=== PATIENT | male | born 1950 | race African-American/Black ===

== ENCOUNTER 2016-07-03 15:10 | Emergency (ER) | payer OTHER ==
[2016-07-03 15:16] VITALS: BP 114/51; PULSE 72; TEMP 98.5; BMI 25.1
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
[2016-07-03] MEDS ORDERED: ACETAMINOPHEN 325 MG TABLET (FP) ONE (16:30)
[2016-07-03] MEDS ORDERED: ACETAMINOPHEN 325 MG TABLET (FP) PO ONE (16:36)
[2016-07-03 16:41] LABS: BASOPHIL 2.6 % (0-2.0); EOSINOPHIL 0.2 % (0-4.5); MCH 29.3 pg (25.7-33.7); MCHC 33.2 g/dl (32.0-35.9); MEAN CELL VOLUME 88.2 fl (80-96); MEAN PLT VOLUME 10.2 fl (7.5-11.1); NEUTROPHILS 48.4 % (42.8-82.8); PLATELET COUNT 199 K/MM3 (134-434); RDW 13.4 % (11.9-15.9); WHITE BLOOD COUNT 7.2 K/mm3 (4.0-10.0)
[2016-07-03 16:53] LABS: ALBUMIN 3.5 g/dl (3.5-5.0); BILIRUBIN,TOTAL 0.5 mg/dl (0.2-1.0); CPK(DFH) 276 IU/L (38-174); CREATININE 1.6 mg/dl (0.6-1.3); TOT PROT 6.9 g/dl (6.4-8.3)
[2016-07-03 17:48] LABS: TROPONIN I (DFP) < 0.03 ng/ml (0.03-0.50)
[2016-07-03 17:50] LABS: CK MB 3.3 ng/ml (0.3-4.0)
--- NOTE | 2016-07-04 21:06 | EKG ---
Test Reason : Blood Pressure : / mmHG Vent. Rate : 064 BPM Atrial Rate : 064 BPM P-R Int : 156 ms QRS Dur : 080 ms QT Int : 400 ms P-R-T Axes : 050 -01 030 degrees QTc Int : 412 ms NORMAL SINUS RHYTHM T WAVE ABNORMALITY, CONSIDER LATERAL ISCHEMIA ABNORMAL ECG WHEN COMPARED WITH ECG OF 18-OCT-2015 20:21, T WAVE INVERSION NO LONGER EVIDENT IN INFERIOR LEADS Confirmed by ROBYN BLAND, LANDY ([id number]) on 07/04/2016 9:06:00 PM Referred By: MD TERAN Confirmed By:LANDY CARLSON MD
== END 2016-07-03 18:29 | disposition home or self-care (01) ==
LOC: FER 15:10
DX: M79.1 Myalgia (principal); V43.52XA Car driver injured in collision with other type car in traffic accident, initial encounter; Y93.89 Activity, other specified; Y92.410 Unspecified street and highway as the place of occurrence of the external cause; I10 Essential (primary) hypertension; E11.9 Type 2 diabetes mellitus without complications
CPT/HCPCS: 36415; 70450-TC; 71020-TC; 72125-TC; 80053; 82550; 82553; 83690; 84484; 85025; 93005; 99283-25

== ENCOUNTER 2016-08-07 07:30 | Day surgery (SDC) | payer OTHER ==
[2016-08-06 12:40] VITALS: BMI 24.4
[2016-08-07] MEDS ORDERED: PROPOFOL 20 ML ONE ×2 (09:00)
[2016-08-07] MEDS ORDERED: ePHEDrine SULFATE 50 MG/1 ML AMPULE ONE (09:25)
[2016-08-07] MEDS ORDERED: GLYCOPYRROLATE 0.2 MG/1 ML VIAL ONE ×2 (09:25→09:27)
[2016-08-07] MEDS ORDERED: BUPIVACAINE HCL/PF 0.25% (2.5MG/ML) 10 ML VIAL IJ ONE (09:45)
[2016-08-07] MEDS ORDERED: ONDANSETRON 4 MG/2 ML VIAL IVPUSH PRN (10:02)
[2016-08-07] MEDS ORDERED: oxyCODONE HCL 5 MG TABLET PO PRN ×2 (10:02→10:03)
[2016-08-07 10:54] VITALS: TEMP 97.5
[2016-08-07] MEDS ORDERED: oxyCODONE HCL 5 MG TABLET ONE (11:51)
[2016-08-07 12:43] VITALS: BP 145/79; PULSE 66
--- NOTE | 2016-08-10 12:10 | OP ---
DATE OF OPERATION: 08/07/2016 SURGEON: Crystal Guallpa MD MOTOR COACH BUS DRIVER: VIOLET Maguire PREOPERATIVE DIAGNOSES: 1. Right knee medial and lateral meniscal tear. 2. Right knee cartilage tear. 3. Right knee synovitis. POSTOPERATIVE DIAGNOSES: 1. Right knee medial and lateral meniscal tear. 2. Right knee cartilage tear. 3. Right knee synovitis. PROCEDURE: 1. Right knee arthroscopy with partial meniscectomy medial and lateral meniscus. 2. Right knee arthroscopy with chondroplasty and abrasion-plasty. 2. Right knee arthroscopy with synovectomy major. CPT CODE: 35553, 67452, 2976 FINDINGS: 1. Medial meniscus body and posterior horn tear. 2. Lateral meniscus posterior horn tear. 3. Synovitis patellofemoral medial and lateral notch. 4. Anterior grade 1-2 cartilage injury medial joint line. 5. ACL and PCL intact. 6. Anterior grade 2 cartilage medial and lateral tibial plateau. 7. Anterior grade 1-2 cartilage patella with grade 4 changes anterolateral portion of patellofemoral trochlea site of synovial adhesion. PROCEDURE: Informed consent was obtained. The patient was taken to the operating room where the right lower extremity was prepped and draped in a sterile fashion. A tourniquet was placed on the right upper thigh but not inflated. Using standard arthroscopic technique, a lateral incision and portal were made which allowed for introduction of the camera into the suprapatellar bursa. This was then taken to the medial joint line where under direct visualization, a medial incision and portal were made. Excessive synovium noted in the medial, lateral, patellofemoral and notch area was removed by the up-biting shaver and Bovie cautery. This was found to bring inflammatory tissue into the joint surface, a source of joint pain and dysfunction. Probing of the medial and lateral meniscus found tears described in the findings. These were removed with an up-biting shaver and taken back to a stable rim. Grade 2-3 degenerative changes were treated with chondroplasty, removing all flaking surfaces with low setting Bovie used along the periphery. Grade 4 changes were treated with abrasion-plasty. All areas of the knee were once again re-examined. The knee was then drained. A single suture was placed on all portals. Sterile dressing was placed. The patient was transferred to the recovery room. CRYSTAL GUALLPA M.D. [id number]
--- NOTE | 2016-08-11 16:18 | PATH ---
Surgical Pathology Report Patient Name: LEANN HIGGINS [facility]. Rec. #: [id number] /Age/Gender: 1950 (Age: 66) / M Account: [id number] Location: [facility] AMBULATORY Taken: 08/07/2016 Received: 08/07/2016 Reported: 08/11/2016 Physicians: Silvino Carbajal M.D. Specimen(s) Received RIGHT KNEE SHAVINGS Clinical History Right knee meniscus tear Final Diagnosis KNEE, RIGHT, ARTHROSCOPIC SHAVINGS: FIBROCOLLAGENOUS TISSUE AND SCANT CARTILAGE. Electronically Signed Irene Ayon M.D. Gross Description Received in formalin, labeled "right knee arthroscopy shavings," is a 4.5 x 3.5 x 0.4 cm. aggregate of guajardo-yellow soft tissue fragments. A self pay representative portion is submitted in one cassette. /08/07/201608/07/2016
== END 2016-08-07 12:40 | disposition home or self-care (01) ==
LOC: FASU 07:30
PROVIDERS: ATTEND Orthopaedic Surgery
PROC: 0SBC4ZZ Excision of Right Knee Joint, Percutaneous Endoscopic Approach (ICD-10-PCS; 2016-08-07)
PROC: 0SBC4ZZ Excision of Right Knee Joint, Percutaneous Endoscopic Approach (ICD-10-PCS; 2016-08-07)
PROC: 0SBC4ZZ Excision of Right Knee Joint, Percutaneous Endoscopic Approach (ICD-10-PCS; principal; 2016-08-07 09:19)
DX: S83.241A Other tear of medial meniscus, current injury, right knee, initial encounter (principal); S83.281A Other tear of lateral meniscus, current injury, right knee, initial encounter; S83.8X1A Sprain of other specified parts of right knee, initial encounter; M65.861 Other synovitis and tenosynovitis, right lower leg; X58.XXXA Exposure to other specified factors, initial encounter; Y93.9 Activity, unspecified; Y92.9 Unspecified place or not applicable
CPT/HCPCS: 88304-TC; 94760

== ENCOUNTER 2016-10-10 22:44 | Emergency (ER) | payer OTHER ==
[2016-10-10 22:48] VITALS: BP 137/72; PULSE 69; TEMP 97.7; BMI 24.4
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
[2016-10-10] MEDS ORDERED: IBUPROFEN 400 MG TABLET (FP) PO ONE ×2 (23:21→23:23)
[2016-10-11] MEDS ORDERED: LEVOFLOXACIN 750 MG IVPB 150 ML IVPB ONE (00:14)
[2016-10-11] MEDS ORDERED: METRONIDAZOLE 500 MG PREMIXED 100 ML IVPB ONE (00:14)
[2016-10-11] MEDS ORDERED: SODIUM CHLORIDE 1,000 ML IV SCH (00:15)
== END 2016-10-10 23:28 | disposition home or self-care (01) ==
LOC: FER 22:44
DX: M25.561 Pain in right knee (principal); G89.29 Other chronic pain; E11.9 Type 2 diabetes mellitus without complications; I10 Essential (primary) hypertension; E78.00 Pure hypercholesterolemia, unspecified; Z79.4 Long term (current) use of insulin
CPT/HCPCS: 73560-TC-RT; 99281-25

== ENCOUNTER 2017-05-16 16:49 | Observation (INO) | payer OTHER ==
[2017-05-16] MEDS ORDERED: HEMOQUE TEST 1 EACH EACH ONE (17:04)
--- NOTE | 2017-05-16 17:22 | PDOC ---
History of Present Illness - General History Source: Patient Exam Limitations: No Limitations - History of Present Illness Initial Comments: 05/16/17 17:28 The patient is a 67 year old male, with a significant past medical history of HTN, HLD, glaucoma (legally blind), and DM, who presents to the emergency department with hyperglycemia today. The patient reports having an unresponsive episode today. The patients family reports the patient slurring his words, being unable to finish sentences, and extremity weakness while in the bathroom. Family reports during the episode measuring his sugar levels, recording it at 280-290. The patient reports having a history of syncopal episode secondary to high glucose level. He denies any recent fevers, chills, headache or dizziness. He denies any recent nausea, vomit, or constipation. He denies any recent chest pain or shortness of breath. He denies any recent dysuria, frequency, urgency or hematuria. Allergies: NKA Past surgical history: See Nursing Notes Social History: Nonsmoker. Denies EtOH use and recreational drug use. <Earnest Salgado - Last Filed: 05/16/17 17:28> <Khadijah Coppola - Last Filed: 05/16/17 21:06> - General Chief Complaint: Blood Sugar Problem Stated Complaint: HYPERGLYCEMIA Time Seen by Provider: 05/16/17 16:58 Past History <Earnest Salgado - Last Filed: 05/16/17 17:28> - Past Medical History Anemia: No Asthma: No Cancer: No Cardiac Disorders: Yes (SYNCOPAL EPISODES IN 2016) CVA: No COPD: No CHF: No Dementia: No Diabetes: Yes (NIDDM) GI Disorders: No Disorders: No HTN: Yes Hypercholesterolemia: Yes Liver Disease: No Seizures: No Thyroid Disease: No - Surgical History Abdominal Surgery: No Appendectomy: No Cardiac Surgery: No Cholecystectomy: No Lung Surgery: No Neurologic Surgery: No Orthopedic Surgery: No - Immunization History Td Vaccination: Yes Immunization Up to Date: Yes - Suicide/Smoking/Psychosocial Hx Smoking Status: No Smoking History: Never smoked Have you smoked in the past 12 months: No Number of Cigarettes Smoked Daily: 0 Hx Alcohol Use: No Drug/Substance Use Hx: No Substance Use Type: None Hx Substance Use Treatment: No <Khadijah Coppola - Last Filed: 05/16/17 21:06> - Past Medical History Allergies/Adverse Reactions: Allergies Allergy/AdvReac Type Severity Reaction Status Date / Time No Known Allergies Allergy Verified 05/16/17 16:51 Home Medications: Ambulatory Orders Insulin (LOG) Aspart [NovoLOG -] 5 unit SQ AC 02/20/12 Insulin Glargine,Hum.rec.anlog [Lantus (10mL VIAL) -] 25 units SQ HS 02/20/12 Carvedilol 12.5 mg PO DAILY 12/02/14 Simvastatin [Zocor -] 20 mg PO HS 10/18/15 Acetaminophen [Tylenol] 650 mg PO Q4H PRN #100 tablet 07/03/16 Aspirin [ASA -] 81 mg PO DAILY 05/16/17 Brimonidine Tartrate/Timolol [Combigan Eye Drops] 5 ml OP DAILY 05/16/17 Prednisolone 0.12% Ophthalmic [Pred Mild 0.12% -] 1 drop OP BID 05/16/17 Review of Systems - Review of Systems Able to Perform ROS?: Yes Comments:: 05/16/17 17:28 GENERAL/CONSTITUTIONAL: No fever or chills. + weakness. HEAD, EYES, EARS, NOSE AND THROAT: No change in vision. No ear pain or discharge. No sore throat. CARDIOVASCULAR: No chest pain or shortness of breath. RESPIRATORY: No cough, wheezing, or hemoptysis. GASTROINTESTINAL: No nausea, vomiting, diarrhea or constipation. GENITOURINARY: No dysuria, frequency, or change in urination. MUSCULOSKELETAL: No joint or muscle swelling or pain. No neck or back pain. SKIN: No rash NEUROLOGIC: No headache, vertigo, loss of consciousness, or change in strength/ sensation. ENDOCRINE: No increased thirst. No abnormal weight change. HEMATOLOGIC/LYMPHATIC: No anemia, easy bleeding, or history of blood clots. ALLERGIC/IMMUNOLOGIC: No hives or skin allergy. <Earnest Salgado - Last Filed: 05/16/17 17:28> *Physical Exam - Vital Signs Last Vital Signs Temp Pulse Resp BP Pulse Ox 97.2 F L 49 L 20 136/67 99 05/16/17 16:49 05/16/17 16:49 05/16/17 16:49 05/16/17 16:49 05/16/17 16:49 <Earnest Salgado - Last Filed: 05/16/17 17:28> - Physical Exam Comments: GENERAL: Awake, alert, and fully oriented, in no acute distress HEAD: No signs of trauma EYES: +Clouding of corneas B/L (history of B/L blindness). Conjunctiva clear ENT: Auricles normal inspection, hearing grossly normal, nares patent, oropharynx clear without exudates. Moist mucosa NECK: Normal ROM, supple, no lymphadenopathy, JVD, or masses LUNGS: Breath sounds equal, clear to auscultation bilaterally. No wheezes, and no crackles HEART: Regular rate and rhythm, normal S1 and S2, no murmurs, rubs or gallops ABDOMEN: Soft, nontender, normoactive bowel sounds. No guarding, no rebound. No masses EXTREMITIES: Normal range of motion, no edema. No clubbing or cyanosis. No cords, erythema, or tenderness NEUROLOGICAL: Cranial nerves II through XII grossly intact. Normal speech, normal gait SKIN: Warm, Dry, normal turgor, no rashes or lesions noted. No skin lesions to the feet. Feet noted to have extremely dry skin B/L. <Khadijah Coppola - Last Filed: 05/16/17 21:06> ED Treatment Course - ADDITIONAL ORDERS Additional order review: Laboratory Results 05/16/17 17:07 POC Glucometer [id number] 05/16/17 17:07 POC Glucometer 202.03053 <Earnest Salgado - Last Filed: 05/16/17 17:28> - LABORATORY CBC & Chemistry Diagram: 05/16/17 17:37 05/16/17 17:37 <Khadijah Coppola - Last Filed: 05/16/17 21:06> Medical Decision Making - Medical Decision Making Pt presented with syncopal event, witnessed by family at home. They initially attributed it to high blood sugar, as he became more alert when they gave him insulin. However, this explanation does not quite make sense- would not expect AMS for BGM 280s. He has bradycardia on exam, and EKG shows inferior lead T wave changes from prior. CE negative. Will admit to hospitalist service on tele for syncope, r/o ACS, r/o arrhythmia. <Khadijah Coppola - Last Filed: 05/16/17 21:06> *DC/Admit/Observation/Transfer - Attestations Scribe Attestion: 05/16/17 17:28 Documentation prepared by Earnest Salgado, acting as rn medical inpatient services for Khadijah Coppola MD. <Earnest Salgado - Last Filed: 05/16/17 17:28> <Khadijah Coppola - Last Filed: 05/16/17 21:06> Diagnosis at time of Disposition: Syncope Qualifiers: Syncope type: unspecified Qualified Code(s): R55 - Syncope and collapse
[2017-05-16] MEDS ORDERED: SODIUM CHLORIDE 1,000 ML IV STA (17:24)
[2017-05-16 17:38] VITALS: BMI 21.6
[2017-05-16 18:32] LABS: BASO % 0.5 % (0-2.0); EOS % 0.6 % (0-4.5); HEMATOCRIT 43.5 % (35.4-49); HEMOGLOBIN 14.2 GM/dl (11.7-16.9); LYMPH % 44.1 % (8-40); MCH 29.5 pg (25.7-33.7); MCHC 32.6 g/dl (32.0-35.9); MEAN CELL VOLUME 90.6 fl (80-96); MEAN PLT VOLUME 10.3 fl (7.5-11.1); MONO % 10.4 % (3.8-10.2); NEUT % 44.4 % (42.8-82.8); PLATELET COUNT 183 K/MM3 (134-434); RBC 4.81 M/mm3 (4.00-5.60)
[2017-05-16 18:38] LABS: ALBUMIN 3.8 g/dl (3.5-5.0); ALK PHOS 72 U/L (32-92); ANION GAP 8 (8-16); BILIRUBIN,TOTAL 0.8 mg/dl (0.2-1.0); BLOOD UREA NITROGEN 24 mg/dl (7-18); CALCIUM 9.5 mg/dl (8.4-10.2); CHLORIDE 107 mmol/L (98-107); CO2 22 mmol/L (22-28); CREATININE 1.5 mg/dl (0.6-1.3); GLUCOSE,RANDOM 185 mg/dl (74-106); SGOT/AST 26 U/L (10-42); SGPT/ALT 20 U/L (10-40); SODIUM 137 mmol/L (136-145); TOT PROT 7.5 g/dl (6.4-8.3)
[2017-05-16 19:02] LABS: TROPONIN I (DFP) < 0.03 ng/ml (0.03-0.50)
[2017-05-16 20:57] LABS: PH,URINE 6.5 (4.5-8); URINE APPEARANCE Clear; URINE BILIRUBIN Negative (NEGATIVE); URINE BLOOD Negative (NEGATIVE); URINE GLUCOSE (UA) Negative (NEGATIVE); URINE KETONE Negative (NEGATIVE); URINE NITRITE Negative (NEGATIVE); URINE PROTEIN Negative (NEGATIVE); URINE UROBILINOGEN 0.2 (0.2-1.0)
[2017-05-16 20:58] LABS: URINE COLOR YELLOW
[2017-05-16] MEDS ORDERED: ATORVASTATIN CA 10 MG TABLET (FP) PO SCH (22:00)
--- NOTE | 2017-05-16 22:14 | HP ---
CHIEF COMPLAINT: Syncope, Hyperglycemia PCP: Dr. Olguin HISTORY OF PRESENT ILLNESS: This is a 67 y/o man with a past medical history of IDDM, HTN, HLD, Legally Blind. BIBA from home for a syncopal episode with hyperglycemia x today. Patient reports that he checked his blood glucose at home and it was 83, so he drank some Coca cola. He reports then while having a BM he became lightheaded and dizzy. He reports his daughter checked his blood sugar and it was 199, he was given insulin and later felt much better. The patient reports that his blood sugars are usually more controlled. The patient denies fever, cough, SOB, CP, palpitations, N/V/D, constipation. ER course was notable for: (1) Head CT- negative ICH, edema, midline shift, mass effect, - skull fracture (2) Chest xray image- No infiltrate or effusion- pending report (3) Serum glucose-185 Recent Travel: None PAST MEDICAL HISTORY: See HPI PAST SURGICAL HISTORY: Social History: Smoking: Never Alcohol: None Drugs: None Lives with and children Family History: Allergies No Known Allergies Allergy (Verified 05/16/17 16:51) HOME MEDICATIONS: Home Medications Medication Instructions Recorded Insulin (LOG) Aspart [NovoLOG -] 5 unit SQ AC 02/20/12 Insulin Glargine,Hum.rec.anlog 25 units SQ HS 02/20/12 [Lantus (10mL VIAL) -] Carvedilol 12.5 mg PO DAILY 12/02/14 Simvastatin [Zocor -] 20 mg PO HS 10/18/15 Acetaminophen [Tylenol] 650 mg PO Q4H PRN #100 tablet 07/03/16 Aspirin [ASA -] 81 mg PO DAILY 05/16/17 Brimonidine Tartrate/Timolol 5 ml OP DAILY 05/16/17 [Combigan Eye Drops] Prednisolone 0.12% Ophthalmic 1 drop OP BID 05/16/17 [Pred Mild 0.12% -] REVIEW OF SYSTEMS CONSTITUTIONAL: diaphoresis Absent: fever, chills, generalized weakness, malaise, loss of appetite, weight change HEENT: Absent: rhinorrhea, nasal congestion, throat pain, throat swelling, difficulty swallowing, mouth swelling, ear pain, eye pain, visual changes CARDIOVASCULAR: syncope, lightheadedness, Absent: chest pain, palpitations, irregular heart rate, peripheral edema RESPIRATORY: Absent: cough, shortness of breath, dyspnea with exertion, orthopnea, wheezing, stridor, hemoptysis GASTROINTESTINAL: Absent: abdominal pain, abdominal distension, nausea, vomiting, diarrhea, constipation, melena, hematochezia GENITOURINARY: Absent: dysuria, frequency, urgency, hesitancy, hematuria, flank pain, genital pain MUSCULOSKELETAL: Absent: myalgia, arthralgia, joint swelling, back pain, neck pain SKIN: Absent: rash, itching, pallor HEMATOLOGIC/IMMUNOLOGIC: Absent: easy bleeding, easy bruising, lymphadenopathy, frequent infections ENDOCRINE: Absent: unexplained weight gain, unexplained weight loss, heat intolerance, cold intolerance NEUROLOGIC: dizziness Absent: headache, focal weakness or paresthesias, unsteady gait, seizure, mental status changes, bladder or bowel incontinence PSYCHIATRIC: Absent: anxiety, depression, suicidal or homicidal ideation, hallucinations. PHYSICAL EXAMINATION Vital Signs - 24 hr 05/16/17 05/16/17 05/16/17 16:49 19:34 20:17 Temperature 97.2 F L 98.1 F Pulse Rate 49 L 61 Pulse Rate [ 61 Right] Respiratory 20 16 18 Rate Blood Pressure 136/67 138/73 Blood Pressure 135/72 [Left] O2 Sat by Pulse 99 100 99 Oximetry (%) 05/16/17 21:07 Temperature 98.1 F Pulse Rate 61 Pulse Rate [ Right] Respiratory 18 Rate Blood Pressure 138/73 Blood Pressure [Left] O2 Sat by Pulse 99 Oximetry (%) GENERAL: Awake, alert, and fully oriented, in no acute distress. HEAD: Normal with no signs of trauma. EYES: Cloudy Corneas, blindness to L- eye, conjunctiva clear EARS, NOSE, THROAT: Dry mucous membranes. Ears normal, nares patent, oropharynx clear without exudates. NECK: Normal range of motion, supple without lymphadenopathy, JVD, or masses. LUNGS: Breath sounds equal, clear to auscultation bilaterally. No wheezes, and no crackles. No accessory muscle use. HEART: Regular rate and rhythm, normal S1 and S2 without murmur, rub or gallop. ABDOMEN: Soft, nontender, not distended, normoactive bowel sounds, no guarding, no rebound, no masses. No hepatomegaly or splenomegaly. MUSCULOSKELETAL: Normal range of motion at all joints. No bony deformities or tenderness. No CVA tenderness. UPPER EXTREMITIES: 2+ pulses, warm, well-perfused. No cyanosis. No clubbing. No peripheral edema. LOWER EXTREMITIES: 2+ pulses, warm, well-perfused. No calf tenderness. No peripheral edema. NEUROLOGICAL: Cranial nerves III-XII intact. Normal speech. Gait not observed. PSYCHIATRIC: Cooperative. Good eye contact. Appropriate mood and affect. SKIN: Warm, dry, normal turgor, no rashes or lesions noted, normal capillary refill. Laboratory Results - last 24 hr 05/16/17 05/16/17 05/16/17 17:07 17:37 17:37 WBC 4.0 D RBC 4.81 Hgb 14.2 Hct 43.5 MCV 90.6 MCH 29.5 MCHC 32.6 RDW 13.0 Plt Count 183 MPV 10.3 Neutrophils % 44.4 Lymphocytes % 44.1 H Monocytes % 10.4 H Eosinophils % 0.6 D Basophils % 0.5 Sodium 137 Potassium 4.0 Chloride 107 Carbon Dioxide 22 Anion Gap 8 BUN 24 H D Creatinine 1.5 H Creat Clearance w eGFR 46.54 POC Glucometer 202.95344 Random Glucose 185 H Calcium 9.5 Total Bilirubin 0.8 D AST 26 ALT 20 Alkaline Phosphatase 72 Creatine Kinase 233 Creatine Kinase Index 1.1 CK-MB (CK-2) 2.7 Troponin I < 0.03 L Total Protein 7.5 Albumin 3.8 Urine Color Urine Appearance Urine pH Ur Specific [place] Urine Protein Urine Glucose (UA) Urine Ketones Urine Blood Urine Nitrite Urine Bilirubin Urine Urobilinogen Ur Leukocyte Esterase 05/16/17 05/16/17 20:53 21:21 WBC RBC Hgb Hct MCV MCH MCHC RDW Plt Count MPV Neutrophils % Lymphocytes % Monocytes % Eosinophils % Basophils % Sodium Potassium Chloride Carbon Dioxide Anion Gap BUN Creatinine Creat Clearance w eGFR POC Glucometer 199 Random Glucose Calcium Total Bilirubin AST ALT Alkaline Phosphatase Creatine Kinase Creatine Kinase Index CK-MB (CK-2) Troponin I Total Protein Albumin Urine Color Yellow Urine Appearance Clear Urine pH 6.5 Ur Specific [place] 1.015 Urine Protein Negative Urine Glucose (UA) Negative Urine Ketones Negative Urine Blood Negative Urine Nitrite Negative Urine Bilirubin Negative Urine Urobilinogen 0.2 Ur Leukocyte Esterase Negative ASSESSMENT/PLAN: This is a 67 y/o man with a PMHx of: IDDM, HTN, HLD, Legally Blind, Glaucoma. Placed in Observation for Syncope, Hyperglycemia. Plan: 1. Syncope- Likely secondary to Vaso Vagal vs Hyperglycemia vs Arrhythmia. Cardiac monitoring, Serial Enzymes, Carotid Doppler, Echo, Appreciate Cardiology Consult. EKG reviewed- sinus bradycardia with sinus arrhythmia, Repeat CBC, BMP, Lipid Panel in am. 2. Hyperglycemia- BGMs, ISS, HgbA1C in am 3. HTN- Monitor BP, Continue Carvedilol with parameters 4. HLD- Continue Zocor 5. Glaucoma- Continue home meds 6. F/E/N- PO Fluids, Replete lytes prn, Diabetic, Low Na Diet 7. DVT Prophyaxis- OOB, SCDs Code Status: Full Code Dispo: Observation Problem List - Problem (1) Syncope Code(s): R55 - SYNCOPE AND COLLAPSE Qualifiers: Syncope type: unspecified Qualified Code(s): R55 - Syncope and collapse (2) Hyperglycemia due to type 1 diabetes mellitus Code(s): E10.65 - TYPE 1 DIABETES MELLITUS WITH HYPERGLYCEMIA (3) HTN (hypertension) Code(s): I10 - ESSENTIAL (PRIMARY) HYPERTENSION (4) Legally blind Code(s): H54.8 - LEGAL BLINDNESS, DEFINED IN [place] (5) Glaucoma Code(s): H40.9 - UNSPECIFIED GLAUCOMA (6) DVT prophylaxis Code(s): [id number] - Visit type - Emergency Visit Emergency Visit: Yes ED Registration Date: 05/16/17 Care time: The patient presented to the Emergency Department on the above date and was hospitalized for further evaluation of their emergent condition. - New Patient This patient is new to me today: Yes Date on this admission: 05/16/17 - Critical Care Critical Care patient: No
[2017-05-16] MEDS ORDERED: SODIUM CHLORIDE 1,000 ML IV SCH (23:15)
[2017-05-17 09:12] LABS: BASO % 0.4 % (0-2.0); EOS % 0.3 % (0-4.5); HEMATOCRIT 40.4 % (35.4-49); HEMOGLOBIN 13.2 GM/dl (11.7-16.9); LYMPH % 38.6 % (8-40); MCH 28.9 pg (25.7-33.7); MCHC 32.7 g/dl (32.0-35.9); MEAN CELL VOLUME 88.4 fl (80-96); MEAN PLT VOLUME 10.8 fl (7.5-11.1); MONO % 10.9 % (3.8-10.2); NEUT % 49.8 % (42.8-82.8); PLATELET COUNT 191 K/MM3 (134-434); RBC 4.57 M/mm3 (4.00-5.60); RDW 12.8 % (11.9-15.9); WHITE BLOOD COUNT 4.6 K/mm3 (4.0-10.8)
[2017-05-17] MEDS ORDERED: PT OWN MED DRAWER 7, Y5N ONE ×2 (09:42→21:07)
[2017-05-17] MEDS: CARVEDILOL 12.5 MG TABLET (FP) PO SCH (09:47)
[2017-05-17] MEDS: ASPIRIN 81 MG CHEWABLE TABLETS PO SCH (09:47)
[2017-05-17] MEDS ORDERED: PATIENT'S OWN MEDICATION (NON-FORMULARY) (Brimonidine Tartrate/Timolol [Combigan 0.2%-0.5% OU SCH (10:00)
[2017-05-17 10:17] LABS: ANION GAP 9 (8-16); BLOOD UREA NITROGEN 22 mg/dl (7-18); CALCIUM 9.4 mg/dl (8.4-10.2); CHLORIDE 106 mmol/L (98-107); CO2 24 mmol/L (22-28); CREATININE 1.5 mg/dl (0.6-1.3); GLUCOSE,RANDOM 69 mg/dl (74-106); MAGNESIUM 1.8 mg/dL (1.8-2.4); PHOSPHOROUS 3.8 mg/dl (2.5-4.6); POTASSIUM 3.9 mmol/L (3.5-5.1); SODIUM 139 mmol/L (136-145)
--- NOTE | 2017-05-17 10:34 | PN ---
Physical Exam: SUBJECTIVE: Patient seen and examined, reports feeling well, denies any chest pain or shortness of breath. OBJECTIVE:This is a 67 y/o man with a past medical history of IDDM, HTN, HLD, Legally Blind. Patient was admitted from the emergency department for syncopal episode. Vital Signs Period Temp Pulse Resp BP Sys/Ramirez Pulse Ox Last 24 Hr 97.2 F-98.4 F 49-70 16-20 135-148/67-73 96-100 GENERAL: The patient is awake, alert, and fully oriented, in no acute distress. HEAD: Normal with no signs of trauma. EYES: left eye- opaque cornea, right eye-cataract noted. PERRL, extraocular movements intact, sclera anicteric, conjunctiva clear. No ptosis. ENT: Ears normal, nares patent, oropharynx clear without exudates, moist mucous membranes. NECK: Trachea midline, full range of motion, supple. LUNGS: Breath sounds equal, clear to auscultation bilaterally, no wheezes, no crackles, no accessory muscle use. HEART: Regular rate and rhythm, S1, S2 without murmur, rub or gallop. ABDOMEN: Soft, nontender, nondistended, normoactive bowel sounds, no guarding, no rebound, no hepatosplenomegaly, no masses. EXTREMITIES: 2+ pulses, warm, well-perfused, no edema. NEUROLOGICAL: Cranial nerves II through XII grossly intact. Normal speech, gait not observed. PSYCH: Normal mood, normal affect. SKIN: Warm, dry, normal turgor, no rashes or lesions noted Laboratory Results - last 24 hr 05/16/17 05/16/17 05/16/17 17:07 17:37 17:37 WBC 4.0 D RBC 4.81 Hgb 14.2 Hct 43.5 MCV 90.6 MCH 29.5 MCHC 32.6 RDW 13.0 Plt Count 183 MPV 10.3 Neutrophils % 44.4 Lymphocytes % 44.1 H Monocytes % 10.4 H Eosinophils % 0.6 D Basophils % 0.5 Sodium 137 Potassium 4.0 Chloride 107 Carbon Dioxide 22 Anion Gap 8 BUN 24 H D Creatinine 1.5 H Creat Clearance w eGFR 46.54 POC Glucometer 202.34095 Random Glucose 185 H Hemoglobin A1c % Calcium 9.5 Phosphorus Magnesium Total Bilirubin 0.8 D AST 26 ALT 20 Alkaline Phosphatase 72 Creatine Kinase 233 Creatine Kinase Index 1.1 CK-MB (CK-2) 2.7 Troponin I < 0.03 L Total Protein 7.5 Albumin 3.8 Urine Color Urine Appearance Urine pH Ur Specific [place] Urine Protein Urine Glucose (UA) Urine Ketones Urine Blood Urine Nitrite Urine Bilirubin Urine Urobilinogen Ur Leukocyte Esterase 05/16/17 05/16/17 05/17/17 20:53 21:21 00:01 WBC RBC Hgb Hct MCV MCH MCHC RDW Plt Count MPV Neutrophils % Lymphocytes % Monocytes % Eosinophils % Basophils % Sodium Potassium Chloride Carbon Dioxide Anion Gap BUN Creatinine Creat Clearance w eGFR POC Glucometer 199 Random Glucose Hemoglobin A1c % Calcium Phosphorus Magnesium Total Bilirubin AST ALT Alkaline Phosphatase Creatine Kinase Creatine Kinase Index CK-MB (CK-2) Troponin I < 0.02 Total Protein Albumin Urine Color Yellow Urine Appearance Clear Urine pH 6.5 Ur Specific [place] 1.015 Urine Protein Negative Urine Glucose (UA) Negative Urine Ketones Negative Urine Blood Negative Urine Nitrite Negative Urine Bilirubin Negative Urine Urobilinogen 0.2 Ur Leukocyte Esterase Negative 05/17/17 05/17/17 05/17/17 00:05 05:51 07:30 WBC 4.6 RBC 4.57 Hgb 13.2 Hct 40.4 MCV 88.4 MCH 28.9 MCHC 32.7 RDW 12.8 Plt Count 191 MPV 10.8 Neutrophils % 49.8 Lymphocytes % 38.6 Monocytes % 10.9 H Eosinophils % 0.3 Basophils % 0.4 Sodium Potassium Chloride Carbon Dioxide Anion Gap BUN Creatinine Creat Clearance w eGFR POC Glucometer 53 Random Glucose Hemoglobin A1c % Calcium Phosphorus Magnesium Total Bilirubin AST ALT Alkaline Phosphatase Creatine Kinase Creatine Kinase Index CK-MB (CK-2) Troponin I Cancelled Total Protein Albumin Urine Color Urine Appearance Urine pH Ur Specific [place] Urine Protein Urine Glucose (UA) Urine Ketones Urine Blood Urine Nitrite Urine Bilirubin Urine Urobilinogen Ur Leukocyte Esterase 05/17/17 05/17/17 05/17/17 07:30 07:30 08:00 WBC RBC Hgb Hct MCV MCH MCHC RDW Plt Count MPV Neutrophils % Lymphocytes % Monocytes % Eosinophils % Basophils % Sodium 139 Potassium 3.9 Chloride 106 Carbon Dioxide 24 Anion Gap 9 BUN 22 H Creatinine 1.5 H Creat Clearance w eGFR POC Glucometer Random Glucose 69 L D Hemoglobin A1c % 9.0 H D Calcium 9.4 Phosphorus 3.8 Magnesium 1.8 Total Bilirubin AST ALT Alkaline Phosphatase Creatine Kinase Creatine Kinase Index CK-MB (CK-2) Troponin I < 0.03 L Total Protein Albumin Urine Color Urine Appearance Urine pH Ur Specific [place] Urine Protein Urine Glucose (UA) Urine Ketones Urine Blood Urine Nitrite Urine Bilirubin Urine Urobilinogen Ur Leukocyte Esterase Laboratory Tests 05/16/17 05/17/17 05/17/17 17:37 00:01 07:30 Troponin I < 0.03 L < 0.02 < 0.03 L Active Medications Generic Name Dose Route Start Last Admin Trade Name Freq PRN Reason Stop Dose Admin Aspirin 81 mg 05/17/17 10:00 05/17/17 09:47 Asa - PO 81 mg DAILY HAIR Administration Atorvastatin Calcium 10 mg 05/16/17 22:00 Lipitor - PO HS HAIR Brimonidine Tartrate 1 drop 05/17/17 10:00 Alphagan 0.2% - OU DAILY HAIR Carvedilol 12.5 mg 05/17/17 10:00 05/17/17 09:47 Coreg - PO 12.5 mg DAILY HAIR Administration Sodium Chloride 1,000 mls @ 42 mls/hr 05/16/17 23:15 Normal Saline - IV ASDIR HAIR Prednisolone Acetate 1 drop 05/16/17 23:15 Pred Mild 0.12% - OU BID HAIR Timolol Maleate 1 drop 05/17/17 10:00 Timoptic 0.5% OU DAILY HAIR imaging head ct, no intracranial pathology is noted ekg sinus bradycardiaa noted ASSESSMENT/PLAN: 1.cardiovascular Syncopal episode - no events noted on cardiac monitoring, likely secondary to hypovolemia, continue gentle iv hydration - orthostatic vital signs now - troponin x 3 wnl - carotid doppler no hemodynamic significant stenosis noted, pending echo - pending lipid panel - appreciate cardiology consult hypertension - b/p at goal continue coreg hyperlipidemia - continue zocor 2. endo iddm - hgb ad1c noted to be elevated, continue home dose levermir, fingersticks achs with novolog coverage 3. Glaucoma - Continue home meds 6. F/E/N- PO Fluids, gentle ivf, Replete lytes prn, Diabetic, Low Na Diet 7. DVT Prophyaxis- OOB, SCDs Code Status: Full Code Dispo: Observation Visit type - Emergency Visit Emergency Visit: Yes ED Registration Date: 05/16/17 Care time: The patient presented to the Emergency Department on the above date and was hospitalized for further evaluation of their emergent condition. - New Patient This patient is new to me today: No - Critical Care Critical Care patient: No - Discharge Referral Referred to [facility] Med [facility] No
--- NOTE | 2017-05-17 10:45 | EKG ---
Test Reason : Blood Pressure : / mmHG Vent. Rate : 053 BPM Atrial Rate : 053 BPM P-R Int : 152 ms QRS Dur : 080 ms QT Int : 452 ms P-R-T Axes : 027 -06 -57 degrees QTc Int : 424 ms SINUS BRADYCARDIA WITH SINUS ARRHYTHMIA MINIMAL VOLTAGE CRITERIA FOR LVH, MAY BE NORMAL VARIANT T WAVE ABNORMALITY, CONSIDER INFEROLATERAL ISCHEMIA WHEN COMPARED WITH ECG OF 03-JUL-2016 16:24, T WAVE INVERSION NOW EVIDENT IN INFERIOR LEADS Confirmed by MD DREW, JONN ([id number]) on 05/17/2017 10:44:58 AM Referred By: JHONNY FRANCO Confirmed By:JONN RUSSELL MD
[2017-05-17] MEDS: INSULIN SLIDING SCALE (NOVOLOG) 1 VIAL SQ SCH ×2 (12:18→17:18)
[2017-05-17] MEDS: BRIMONIDINE TARTRATE 0.2% OPHTHALMIC 5 ML BOTTLE OU SCH (12:19)
[2017-05-17] MEDS: TIMOLOL 0.5% OPHTHALMIC SOL 5 ML BOTTLE OU SCH (12:19)
[2017-05-17] MEDS: prednisoLONE ACETATE 0.12% OPTH SUSP- 5 ML BOTTLE OU SCH ×3 (12:20→21:14)
[2017-05-17 13:53] LABS: CHOLESTEROL 158 mg/dl; HDL CHOLESTEROL 36 mg/dl (29-89); LDL CHOLESTEROL (ONLY DFH) 106 mg/dl; TRIGLYCERIDES 79 mg/dl (35-160)
--- NOTE | 2017-05-17 16:40 | CONSULT ---
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 Pt has no hx of Mi, CHF or CP syndrome. He's had many episodes of syncope in setting of hypoglycemia (in the 60s), but hasn't had one in almost a year. Yesterday morning, he woke up -> blood glucose by FS was 84. He felt fine -. had some crackers, tea and then his made him some salad and rice which he ate. He then felt dizzy, his stomach started to growl and he felt he had to go to the bathroom . He walked to the bathroom with his family following him. While sitting on the toilet, his gave him a can of coke he had opened to drink but felt it was too cold at the time -. he had some and then the can fell out of is hand, which he remembers. he was told he went out for a few seconds - . when he came too, he knew where he was but was weaty. His family called the ambulance in spite of him telling them he was fine He denies CP, SOB, palpitations with the episodeor afterwards. In ER, Head CT- negative ICH, edema, midline shift, mass effect, - skull fracture Chest xray was unremarkable His Serum glucose was 185 Past cardiac tests: EKG (07/30/16 -. SR , inf-lateral TWI (old) Echo (10/23) -> Nl LV EF,. 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: Syncope (many epiosdes in past in setting of hypoglycemia), Other Cardio/Vascular: Yes: HTN, Hyperlipdemia Endocrine: Yes: Diabetes Mellitus (insulin requiring) Additional Medical History: glaucoma -> blindness - Alcohol/Substance Use Hx Alcohol Use: No History of Substance Use: reports: None - Smoking History Smoking history: Never smoked Have you smoked in the past 12 months: No Aproximately how many cigarettes per day: 0 - Social History Usual Living Arrangement: With Spouse (and 2 children) 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 Home Medications - Allergies Allergies/Adverse Reactions: Allergies Allergy/AdvReac Type Severity Reaction Status Date / Time No Known Allergies Allergy Verified 05/16/17 16:51 - Home Medications Home Medications: Ambulatory Orders Insulin (LOG) Aspart [NovoLOG -] 5 unit SQ AC 02/20/12 Insulin Glargine,Hum.rec.anlog [Lantus (10mL VIAL) -] 25 units SQ DAILY Carvedilol 12.5 mg PO DAILY 12/02/14 Simvastatin [Zocor -] 20 mg PO HS 10/18/15 Acetaminophen [Tylenol] 650 mg PO Q4H PRN #100 tablet 07/03/16 Aspirin [ASA -] 81 mg PO DAILY 05/16/17 Brimonidine Tartrate/Timolol [Combigan Eye Drops] 1 drop OU DAILY 05/16/17 Prednisolone 0.12% Ophthalmic [Pred Mild 0.12% -] 1 drop OP BID 05/16/17 Family Disease History - Family Disease History Family History: Unremarkable (denies premature CAD) Review of Systems - Review of Systems Constitutional: reports: No Symptoms Eyes: reports: Other (blindness) HENT: reports: No Symptoms Neck: reports: No Symptoms Cardiovascular: reports: No Symptoms Respiratory: reports: No Symptoms Gastrointestinal: reports: No Symptoms Genitourinary: reports: No Symptoms Integumentary: reports: No Symptoms Neurological: reports: Other (syncope) Endocrine: reports: No Symptoms Psychiatric: reports: No Symptoms Physical Exam Vital Signs: Vital Signs Temperature 98.4 F 05/17/17 14:00 Pulse Rate 71 05/17/17 14:00 Respiratory Rate 18 05/17/17 14:00 Blood Pressure 144/74 05/17/17 14:00 O2 Sat by Pulse Oximetry (%) 96 05/17/17 14:00 Constitutional: Yes: Well Nourished Eyes: Yes: Conjunctiva Clear HENT: Yes: Atraumatic Neck: Yes: Supple Cardiovascular: Yes: Regular Rate and Rhythm. No: Murmur Respiratory: Yes: CTA Bilaterally Gastrointestinal: Yes: Normal Bowel Sounds, Soft. No: Tenderness Extremities: Yes: Other (warm) Edema: No Peripheral Pulses WNL: Yes Neurological: Yes: Alert, Oriented Psychiatric: Yes: Alert, Oriented Labs: CBC, BMP 05/17/17 07:30 05/17/17 07:30 Imaging - Results Chest X-ray: Report Reviewed, Image Reviewed Cat Scan: Report Reviewed, Image Reviewed Ultrasound: Other (carotid (05/17/17) -. small plaques, w/o hemodynamiccaly sign lesions) EKG: Report Reviewed, Image Reviewed (SR, LVH with inf=lateral TW changes) Other: Other Assessment/Plan 67 yo male with the above history. here with short syncopal episode, with a prodrome of dizziness and stomach discomfort and while sitting on a toilet -. lilely vaso-vagal The bl glc was 84 before but he felt fine then and had crackers/tea/salad/rice - > doubt hypoglycemia as etiology Doubt hyperglycemia either, as blood glucose was reportedly low 200s (per pt) No evidence of ACS or CHF No sign carotid dz Rec: Continue current meds Keep hydrated Glucose control I will check echo No further cardiac testing as inpt Follow up with regular leg assembler after d/c Thanks!
[2017-05-18] MEDS: INSULIN SLIDING SCALE (NOVOLOG) 1 VIAL SQ SCH ×4 (00:04→17:04)
[2017-05-18] MEDS ORDERED: PT OWN MED DRAWER 7, Y5N ONE ×2 (09:15→09:33)
[2017-05-18] MEDS: CARVEDILOL 12.5 MG TABLET (FP) PO SCH (09:19)
[2017-05-18] MEDS: ASPIRIN 81 MG CHEWABLE TABLETS PO SCH (09:19)
[2017-05-18] MEDS: prednisoLONE ACETATE 0.12% OPTH SUSP- 5 ML BOTTLE OU SCH (09:20)
[2017-05-18] MEDS: BRIMONIDINE TARTRATE 0.2% OPHTHALMIC 5 ML BOTTLE OU SCH (09:20)
[2017-05-18] MEDS: TIMOLOL 0.5% OPHTHALMIC SOL 5 ML BOTTLE OU SCH (09:21)
[2017-05-18] MEDS ORDERED: INSULIN DETEMIR 100 UNITS/ML MDV SQ SCH (10:00)
[2017-05-18] MEDS ORDERED: INSULIN (NOVOLOG) ASPART 100 UNITS/ML 10ML VIAL ONE (12:08)
--- NOTE | 2017-05-18 12:32 | DS ---
Physical Exam: SUBJECTIVE: Patient seen and examined, patient sitting in bedside chair eating lunch, tolerating diet, denies any chest pain or shortness of breath. OBJECTIVE:This is a 67 y/o man with a past medical history of IDDM, HTN, HLD, Legally Blind. BIBA from home for a syncopal episode with hyperglycemia x today. Patient reports that he checked his blood glucose at home and it was 83, so he drank some Coca cola. He reports then while having a BM he became lightheaded and dizzy. He reports his daughter checked his blood sugar and it was 199, he was given insulin and later felt much better. The patient reports that his blood sugars are usually more controlled. The patient denies fever, cough, SOB, CP, palpitations, N/V/D, constipation. ER course was notable for: (1) Head CT- negative ICH, edema, midline shift, mass effect, - skull fracture (2) Chest xray image- No infiltrate or effusion- pending report (3) Serum glucose-185 Vital Signs Period Temp Pulse Resp BP Sys/Ramirez Pulse Ox Last 24 Hr 98.0 F-98.6 F 65-75 16-18 129-145/59-74 96-99 PHYSICAL EXAM GENERAL: The patient is awake, alert, and fully oriented, in no acute distress. HEAD: Normal with no signs of trauma. EYES: left eye- opaque cornea, right eye-cataract noted. PERRL, extraocular movements intact, sclera anicteric, conjunctiva clear. No ptosis. ENT: Ears normal, nares patent, oropharynx clear without exudates, moist mucous membranes. NECK: Trachea midline, full range of motion, supple. LUNGS: Breath sounds equal, clear to auscultation bilaterally, no wheezes, no crackles, no accessory muscle use. HEART: Regular rate and rhythm, S1, S2 without murmur, rub or gallop. ABDOMEN: Soft, nontender, nondistended, normoactive bowel sounds, no guarding, no rebound, no hepatosplenomegaly, no masses. EXTREMITIES: 2+ pulses, warm, well-perfused, no edema. NEUROLOGICAL: Cranial nerves II through XII grossly intact. Normal speech, gait not observed. PSYCH: Normal mood, normal affect. SKIN: Warm, dry, normal turgor, no rashes or lesions noted LABS Laboratory Results - last 24 hr 05/17/17 05/17/17 05/18/17 07:00 16:37 00:55 POC Glucometer 132 165 Triglycerides 79 D Cholesterol 158 Total LDL Cholesterol 106 HDL Cholesterol 36 D 05/18/17 05/18/17 06:03 11:23 POC Glucometer 87 223 Triglycerides Cholesterol Total LDL Cholesterol HDL Cholesterol CBC WBC 4.6 K/mm3 (4.0-10.8) 05/17/17 07:30 RBC 4.57 M/mm3 (4.00-5.60) 05/17/17 07:30 Hgb 13.2 GM/dl (11.7-16.9) 05/17/17 07:30 Hct 40.4 % (35.4-49) 05/17/17 07:30 MCV 88.4 fl (80-96) 05/17/17 07:30 MCH 28.9 pg (25.7-33.7) 05/17/17 07:30 MCHC 32.7 g/dl (32.0-35.9) 05/17/17 07:30 RDW 12.8 % (11.9-15.9) 05/17/17 07:30 Plt Count 191 K/MM3 (134-434) 05/17/17 07:30 MPV 10.8 fl (7.5-11.1) 05/17/17 07:30 Neutrophils % 49.8 % (42.8-82.8) 05/17/17 07:30 Lymphocytes % 38.6 % (8-40) 05/17/17 07:30 Monocytes % 10.9 % (3.8-10.2) H 05/17/17 07:30 Eosinophils % 0.3 % (0-4.5) 05/17/17 07:30 Basophils % 0.4 % (0-2.0) 05/17/17 07:30 CMP Sodium 139 mmol/L (136-145) 05/17/17 07:30 Potassium 3.9 mmol/L (3.5-5.1) 05/17/17 07:30 Chloride 106 mmol/L (98-107) 05/17/17 07:30 Carbon Dioxide 24 mmol/L (22-28) 05/17/17 07:30 Anion Gap 9 (8-16) 05/17/17 07:30 BUN 22 mg/dl (7-18) H 05/17/17 07:30 Creatinine 1.5 mg/dl (0.6-1.3) H 05/17/17 07:30 Creat Clearance w eGFR 46.54 (>60) 05/16/17 17:37 POC Glucometer 223 UNITS (80-120) 05/18/17 11:23 Random Glucose 69 mg/dl (74-106) L D 05/17/17 07:30 Hemoglobin A1c % 9.0 % (4.8-6.0) H D 05/17/17 08:00 Calcium 9.4 mg/dl (8.4-10.2) 05/17/17 07:30 Phosphorus 3.8 mg/dl (2.5-4.6) 05/17/17 07:30 Magnesium 1.8 mg/dL (1.8-2.4) 05/17/17 07:30 Total Bilirubin 0.8 mg/dl (0.2-1.0) D 05/16/17 17:37 AST 26 U/L (10-42) 05/16/17 17:37 ALT 20 U/L (10-40) 05/16/17 17:37 Alkaline Phosphatase 72 U/L (32-92) 05/16/17 17:37 Creatine Kinase 233 IU/L (39-308) 05/16/17 17:37 Creatine Kinase Index 1.1 % (0.0-5.0) 05/16/17 17:37 CK-MB (CK-2) 2.7 ng/mL (0.3-4.0) 05/16/17 17:37 Troponin I < 0.03 ng/ml (0.03-0.50) L 05/17/17 07:30 Total Protein 7.5 g/dl (6.4-8.3) 05/16/17 17:37 Albumin 3.8 g/dl (3.5-5.0) 05/16/17 17:37 Triglycerides 79 mg/dl (35-160) D 05/17/17 07:00 Cholesterol 158 mg/dl 05/17/17 07:00 Total LDL Cholesterol 106 mg/dl 05/17/17 07:00 HDL Cholesterol 36 mg/dl (29-89) D 05/17/17 07:00 Laboratory Tests 05/16/17 05/17/17 05/17/17 17:37 00:01 07:30 Troponin I < 0.03 L < 0.02 < 0.[address], no intracranial pathology is noted ekg sinus bradycardiaa noted HOSPITAL COURSE: . Syncopal episode, no events noted on cardiac monitoring, likely secondary to hypovolemia, gentle iv hydration was given. troponin x 3 wnl, carotid doppler no hemodynamic significant stenosis noted, echo grade I diastolic dysfunction, EF 70%. lipid panel wnl, cardiology, Dr Junior consulted and followed. patient has a past medical history of hypertension, b/p at goal, coreg continued. lft' s wnl, zocor continued. patient has a pmh of niddm, hgb ad1c noted to be elevated, continue home dose levermir, fingersticks achs with novolog coverage Date of Admission:05/16/17 Date of Discharge: 05/18/17 Minutes to complete discharge: 45 Discharge Summary Reason For Visit: SYNCOPE Current Active Problems DVT prophylaxis (Acute) Glaucoma (Acute) Syncope (Acute) - Instructions Referrals: Silvino Bartholomew [Primary Care Provider] - - Home Medications Comprehensive Discharge Medication List: Ambulatory Orders Insulin (LOG) Aspart [NovoLOG -] 5 unit SQ AC 02/20/12 Insulin Glargine,Hum.rec.anlog [Lantus (10mL VIAL) -] 25 units SQ DAILY Carvedilol 12.5 mg PO DAILY 12/02/14 Simvastatin [Zocor -] 20 mg PO HS 10/18/15 Acetaminophen [Tylenol] 650 mg PO Q4H PRN #100 tablet 07/03/16 Aspirin [ASA -] 81 mg PO DAILY 05/16/17 Brimonidine Tartrate/Timolol [Combigan Eye Drops] 1 drop OU DAILY 05/16/17 Prednisolone 0.12% Ophthalmic [Pred Mild 0.12% -] 1 drop OP BID 05/16/17 This patient is new to me today: No Emergency Visit: Yes ED Registration Date: 05/16/17 Care time: The patient presented to the Emergency Department on the above date and was hospitalized for further evaluation of their emergent condition. Critical Care patient: No - Discharge Referral Referred to [facility] Med P.C.: No
[2017-05-18 14:14] VITALS: BP 127/62; PULSE 61; TEMP 98.5
== END 2017-05-18 18:14 | disposition home or self-care (01) ==
LOC: FER 16:49 → FM/S 20:17
PROVIDERS: ADMIT Internal Medicine; ATTEND Nurse Practitioner Family
PROC: 3E0337Z Introduction of Electrolytic and Water Balance Substance into Peripheral Vein, Percutaneous Approach (ICD-10-PCS; principal; 2017-05-16)
PROC: 3E013VG Introduction of Insulin into Subcutaneous Tissue, Percutaneous Approach (ICD-10-PCS; 2017-05-16)
DX: R55 Syncope and collapse (principal); E10.65 Type 1 diabetes mellitus with hyperglycemia; E78.5 Hyperlipidemia, unspecified; I10 Essential (primary) hypertension; H54.8 Legal blindness, as defined in USA; H40.9 Unspecified glaucoma; Z79.4 Long term (current) use of insulin; Z79.82 Long term (current) use of aspirin
CPT/HCPCS: 36415; 70450-TC; 71045-TC; 80048; 80053; 80061; 81003; 82550; 82553; 82962; 83036; 83735; 84100; 84484; 85025; 93005; 93306-TC; 93880-TC; 97116-GP; 97161-GP; 99282-25; G0378

== ENCOUNTER 2018-01-08 14:20 | Emergency (ER) | payer OTHER ==
[2018-01-08 14:31] VITALS: TEMP 97.6; BMI 24.4
[2018-01-08] MEDS ORDERED: HEMOQUE TEST 1 EACH EACH ONE (14:51)
--- NOTE | 2018-01-08 14:52 | PDOC ---
Attending Attestation - Resident Resident Name: Barrie Angeles - ED Attending Attestation I have performed the following: I have examined & evaluated the patient, The case was reviewed & discussed with the resident, I agree w/resident's findings & plan, Exceptions are as noted - HPI HPI: 01/08/18 14:50 67y M hx of htn, hl, glaucoma, dm, presents with complaint of weakness. Patient states that he was in his usual state of health until this afternoon when he was about to eat a late breakfast when he starts to feel very weak, diaphoretic , lightheaded as he was starting to eat. He denies any associated headache, chest pain, shortness of breath, abdominal pain, neck pain, back pain, fevers, chills, cough. The symptoms lasted approximately 2030 minutes bili cannot ER. The patient states that he had a stress test yesterday as part of preop clearance workup, and during the nuclear stress test he felt fine. He does endorse that she did not eat very much after the stress test and did not eat anything this morning until everything started. He had a blood sugar tested by his son that was noted at 148. The patient denies any recent diarrhea, dysuria. he does note that in the past he has had frequent simlar episodes, and has presented to this emergency department in the past however as for as he knows they do not know what is causing. it. Physical exam GENERAL: The patient is awake, alert, and fully oriented, Nontoxic - in no acute distress. HEAD: Normocephalic, atraumatic. EYES: b/l glaucoma ENT: Normal voice, dry mucous membranes. NECK: Normal range of motion, supple LUNGS: Breath sounds equal, clear to auscultation bilaterally. No wheezes, no rhonchi, no rales. HEART: Regular rate and rhythm, normal S1 and S2 without murmur, rub or gallop. ABDOMEN: Soft, nontender, normoactive bowel sounds. No guarding, no rebound. No CVA tenderness EXTREMITIES: Normal range of motion, no edema. NEUROLOGICAL: No facial assymetry, Normal speech, moving all 4 extremities spontaneously and symmetrically PSYCH: Normal mood, normal affect. SKIN: Warm, Dry, normal turgor, Differential for the patient's symptoms includes possible dehydration, metabolic derangements, consider possible ACS, occult infection. We'll obtain CBC, CMP, troponins, EKG, UA, chest x-ray Give fluids for hydration Will reassess - Physicial Exam PE: 01/08/18 18:14 see aove - Medical Decision Making 01/08/18 18:13 suspect pts symptoms secondary to starvtion/dehydration as he had minimal food/ hydration since his stress test his labs reviewed, cr at bseline in the mid ones. His UA noted for +kenotnuria - c/w mild starvation pt feels significantly improved after hydration and eating a meal tray will dc the pt home with pmd fu supportive care at home Heart Score/ECG Review - ECG Impressions Comment:: 01/08/18 15:38 Twelve-lead EKG was performed and reviewed by me. There is normal sinus rhythm with a rate of 56 T wave inversions in the inferior and lateral leads, no significant change when compared with May 2017
[2018-01-08] MEDS ORDERED: SODIUM CHLORIDE 1,000 ML IV STA (14:58)
--- NOTE | 2018-01-08 15:01 | PDOC ---
History of Present Illness - General Chief Complaint: Weakness Stated Complaint: WEAKNESS Time Seen by Provider: 01/08/18 14:24 History Source: Patient Exam Limitations: No Limitations - History of Present Illness Initial Comments: 01/08/18 15:00 Mr. Mckeon is a 67 yo M with a hx of HTN, HLD, glaucoma (legally blind), and DM who presents to the emergency department with weakness. He states at 1:50 pm , he was eating his first meal (normally 1st meal at 8am) when he began to have sudden onset of weakness, dizziness, and diaphoresis. His BG 2 minutes after onset of ssx per the son was 124 with subsequent readings before arrival at 140 and 148. He felt like he was going to pass out, but denies LOC. Yesterday, he was seen for surgery clearance (right hip replacement) with a normal nuclear stress test. Per the son, he was pale looking during the episode. The patient states he feels "very dry". Denies the following: fever, headache, chest pain, SOB, nausea/vomiting, abdominal pain, melena/hematochezia, trauma, dysuria, hematuria, and leg pain/swelling Pmhx: Refer to above., Shx: Multiple surgeries to eyes regarding glaucoma. Meds: Pertinent include coreg and aspirin 81 mg. Reference chart. Allergies: NKDA Social hx: Denies smoking, alcohol, and drug use. 01/08/18 15:07 01/08/18 15:10 Past History - Past Medical History Allergies/Adverse Reactions: Allergies Allergy/AdvReac Type Severity Reaction Status Date / Time No Known Allergies Allergy Verified 01/08/18 14:21 Home Medications: Ambulatory Orders Insulin (LOG) Aspart [NovoLOG -] unit SQ ASDIR 02/20/12 Insulin Glargine,Hum.rec.anlog [Lantus (10mL VIAL) -] 25 units SQ DAILY Carvedilol 12.5 mg PO DAILY 12/02/14 Aspirin [ASA -] 81 mg PO DAILY 05/16/17 Brimonidine Tartrate/Timolol [Combigan 0.2%-0.5% Eye Drops] 1 drop OU DAILY 11/24 Prednisolone 0.12% Ophthalmic [Pred Mild 0.12% -] 1 drop OP BID 05/16/17 Anemia: No Asthma: No Cancer: No Cardiac Disorders: Yes (SYNCOPAL EPISODES IN 2016) CVA: No COPD: No CHF: No Dementia: No Diabetes: Yes (NIDDM) GI Disorders: No Disorders: No HTN: Yes Hypercholesterolemia: Yes Liver Disease: No Seizures: No Thyroid Disease: No Other medical history: GLAUCOMA/BLIND - Surgical History Abdominal Surgery: No Appendectomy: No Cardiac Surgery: No Cholecystectomy: No Lung Surgery: No Neurologic Surgery: No Orthopedic Surgery: No - Immunization History Td Vaccination: Yes Immunization Up to Date: Yes - Suicide/Smoking/Psychosocial Hx Smoking Status: No Smoking History: Never smoked Have you smoked in the past 12 months: No Number of Cigarettes Smoked Daily: 0 Information on smoking cessation initiated: No Hx Alcohol Use: No Drug/Substance Use Hx: No Substance Use Type: None Hx Substance Use Treatment: No Review of Systems - Review of Systems Able to Perform ROS?: Yes Constitutional: Yes: Weakness. No: Chills, Diaphoresis, Fever HEENTM: No: Ear Pain, Nose Pain, Throat Pain, Mouth Pain Respiratory: No: Cough, Shortness of Breath Cardiac (ROS): No: Chest Pain, Lightheadedness, Palpitations, Syncope ABD/GI: Yes: Poor Fluid Intake. No: Constipated, Diarrhea, Nausea, Poor Appetite, Rectal Bleeding, Vomiting, Tarry Stools : No: Burning, Dysuria, Flank Pain, Hematuria Musculoskeletal: No: Back Pain Integumentary: Yes: Pallor (gums and eyelids). No: Rash Neurological: No: Headache, Numbness, Paresthesia, Weakness Psychiatric: No: Stressors Endocrine: No: Unexplained Weight Gain Hematologic/Lymphatic: No: Anemia *Physical Exam - Vital Signs Last Vital Signs Temp Pulse Resp BP Pulse Ox 97.6 F 54 L 18 95/66 100 01/08/18 14:20 01/08/18 14:20 01/08/18 14:20 01/08/18 14:20 01/08/18 14:20 - Physical Exam General Appearance: Yes: Nourished, Appropriately Dressed HEENT: positive: EOMI, OUSMANE, Pale Conjunctivae Neck: positive: Trachea midline. negative: Lymphadenopathy (R), Lymphadenopathy (L) Respiratory/Chest: positive: Lungs Clear, Normal Breath Sounds Cardiovascular: positive: Regular Rhythm, S1, S2, Bradycardia. negative: Systolic Murmur Vascular Pulses: Dorsalis-Pedis (R): 3+, Doralis-Pedis (L): 3+ Gastrointestinal/Abdominal: positive: Normal Bowel Sounds. negative: Tender Lymphatic: negative: Adenopathy Musculoskeletal: positive: Normal Inspection Extremity: positive: Normal Capillary Refill, Normal Inspection, Normal Range of Motion Integumentary: positive: Normal Color, Dry, Warm Neurologic: positive: bun panner II-XII NML intact, Fully Oriented, Alert, Normal Mood/ Affect, Normal Response, Motor Strength 5/5 Heart Score/ECG Review - History History: Slightly suspicious - Electrocardiogram EKG: Non specific repolarization disturbance - Age Age: >/= 65 - Risk Factors Risk Factors Heart Score: Yes Hx Hypercholesterolemia, Yes Hx Hypertension, Yes Hx Diabetes Based on the list above the patient has:: >/=3 risk factors or Hx atherosclerotic disease - ECG Intrepretation Comment:: 01/08/18 15:14 ventricular rate 56 bpm, HI 176 ms, QRS duration 76 ms, QTc is 422 ms. Sinus derian without ST depressions or elevations. T wave inversions in aVF, II, III, V4, V5, V6. No changes from previous EKG in May 2017. ED Treatment Course - LABORATORY CBC & Chemistry Diagram: 01/08/18 15:46 01/08/18 15:46 Medical Decision Making - Medical Decision Making 01/08/18 15:17 59 yo M with hx of HTN, HLD, glaucoma, and DM who presents to the emergency department with weakness. ddx: hypoglycemia, anemia, ACS, infectious etiology (PNA vs UTI), Initial vitals: Initial Vital Signs Temp Pulse Resp BP Pulse Ox 97.6 F 54 L 18 95/66 100 01/08/18 14:20 01/08/18 14:20 01/08/18 14:20 01/08/18 14:20 01/08/18 14:20 Work up:" CBC, CMP, UA, trops, EKG, and CXR ordered. 01/08/18 17:20 Laboratory Tests 01/08/18 01/08/18 01/08/18 14:55 15:46 15:46 WBC 5.7 RBC 4.47 Hgb 13.3 Hct 40.7 MCV 91.1 MCH 29.8 MCHC 32.7 RDW 13.3 Plt Count 224 MPV 10.1 Absolute Neuts (auto) 3.8 Neutrophils % 65.6 D Lymphocytes % 26.4 D Monocytes % 7.3 Eosinophils % 0.3 Basophils % 0.4 Sodium 135 L Potassium 4.1 Chloride 102 Carbon Dioxide 25 Anion Gap 8 BUN 21 H Creatinine 1.6 H Creat Clearance w eGFR 43.20 POC Glucometer 174.64256 Random Glucose 211 H D Calcium 9.0 Total Bilirubin 0.8 AST 19 D ALT 17 Alkaline Phosphatase 70 Creatine Kinase Troponin I Total Protein 6.9 Albumin 3.4 L 01/08/18 01/08/18 15:46 15:46 WBC RBC Hgb Hct MCV MCH MCHC RDW Plt Count MPV Absolute Neuts (auto) Neutrophils % Lymphocytes % Monocytes % Eosinophils % Basophils % Sodium Potassium Chloride Carbon Dioxide Anion Gap BUN Creatinine Creat Clearance w eGFR POC Glucometer Random Glucose Calcium Total Bilirubin AST ALT Alkaline Phosphatase Creatine Kinase 138 Troponin I < 0.03 Total Protein Albumin CXR shows no acute processes. On re-evaluation after 1 L NS and eating, his BP was 127/72 with a pulse of 62. He feels much better and wishes to go home. *DC/Admit/Observation/Transfer Diagnosis at time of Disposition: Dehydration - Discharge Dispostion Disposition: HOME Decision to Admit order: No - Referrals Referrals: Clem Sue MD [Primary Care Provider] - - Patient Instructions Printed Discharge Instructions: DI for Dehydration -- Adult Additional Instructions: You have been seen in the emergency department for the evaluation of your weakness. With your imaging and labs, it appears that your weakness was likely secondary to dehydration and delaying your meal time. Your WBC and hgb were within normal limits. Your cardiac enzymes and EKG were within normal limits. Your electrolytes were within normal limits as well. Chest xray did not reveal acute pathologies. Please follow up with your primary care doctor within 24-48 hours for follow up care and management. Please return to the emergency department if symptoms worsen, persist, or new concerning symptoms arise. - Post Discharge Activity
[2018-01-08 16:19] LABS: BASO % 0.4 % (0-2.0); EOS % 0.3 % (0-4.5); HEMATOCRIT 40.7 % (35.4-49); HEMOGLOBIN 13.3 GM/dl (11.7-16.9); LYMPH % 26.4 % (8-40); MCH 29.8 pg (25.7-33.7); MCHC 32.7 g/dl (32.0-35.9); MEAN CELL VOLUME 91.1 fl (80-96); MEAN PLT VOLUME 10.1 fl (7.5-11.1); MONO % 7.3 % (3.8-10.2); NEUT % 65.6 % (42.8-82.8); PLATELET COUNT 224 K/MM3 (134-434); RBC 4.47 M/mm3 (4.00-5.60); RDW 13.3 % (11.9-15.9); WHITE BLOOD COUNT 5.7 K/mm3 (4.0-10.8)
[2018-01-08 16:31] LABS: ALBUMIN 3.4 g/dl (3.5-5.0); ALK PHOS 70 U/L (32-92); ANION GAP 8 MMOL/L (8-16); BILIRUBIN,TOTAL 0.8 mg/dl (0.2-1.0); BLOOD UREA NITROGEN 21 mg/dl (7-18); CHLORIDE 102 mmol/L (98-107); CO2 25 mmol/L (22-28); CREATININE 1.6 mg/dl (0.6-1.3); GLUCOSE,RANDOM 211 mg/dl (74-106); POTASSIUM 4.1 mmol/L (3.5-5.1); SGOT/AST 19 U/L (10-42); SGPT/ALT 17 U/L (10-40); SODIUM 135 mmol/L (136-145); TOT PROT 6.9 g/dl (6.4-8.3)
[2018-01-08 17:18] VITALS: BP 127/72; PULSE 62
[2018-01-08 17:36] LABS: URINE APPEARANCE Clear; URINE BILIRUBIN Negative (NEGATIVE); URINE COLOR Yellow; URINE GLUCOSE (UA) Negative (NEGATIVE); URINE KETONE Trace (NEGATIVE); URINE LEUK ESTERASE Negative (NEGATIVE); URINE NITRITE Negative (NEGATIVE); URINE UROBILINOGEN 0.2 (0.2-1.0)
[2018-01-08 17:37] LABS: URINE PROTEIN 1+ (NEGATIVE)
[2018-01-08 18:08] LABS: EPI CELLS FEW /HPF; URINE BACTERIA FEW /hpf (NEGATIVE)
--- NOTE | 2018-01-10 14:16 | EKG ---
Test Reason : Blood Pressure : / mmHG Vent. Rate : 056 BPM Atrial Rate : 056 BPM P-R Int : 176 ms QRS Dur : 076 ms QT Int : 438 ms P-R-T Axes : 094 -09 -33 degrees QTc Int : 422 ms SINUS BRADYCARDIA ABNORMAL ECG WHEN COMPARED WITH ECG OF 16-MAY-2017 17:32, NO SIGNIFICANT CHANGE WAS FOUND Confirmed by ROSEANN SALGADO MD ([id number]) on 01/10/2018 2:15:48 PM Referred By: DEDE Confirmed By:ROSEANN SALGADO MD
== END 2018-01-08 18:35 | disposition home or self-care (01) ==
LOC: FER 14:20
PROC: 3E0337Z Introduction of Electrolytic and Water Balance Substance into Peripheral Vein, Percutaneous Approach (ICD-10-PCS; principal; 2018-01-08)
DX: E86.0 Dehydration (principal); E11.9 Type 2 diabetes mellitus without complications; I10 Essential (primary) hypertension; E78.5 Hyperlipidemia, unspecified
CPT/HCPCS: 36415; 71045-TC-FY; 80053; 81003; 81015; 82550; 82962; 84484; 85025; 87086; 93005; 99285-25; J7030

== ENCOUNTER 2018-02-10 11:00 | Inpatient (IN) | payer OTHER ==
[2018-02-16 15:03] VITALS: BMI 26.0
[2018-02-23] MEDS ORDERED: GABAPENTIN 300 MG CAPSULE (FP) PO ONE (18:35)
[2018-02-23] MEDS ORDERED: ROPIVICAINE 0.2%/MORPH PF/KETOROLAC - 51ML DISP.SYRINGE IA ONE (18:35)
[2018-02-23] MEDS ORDERED: CEFAZOLIN 2 GM in DEXTROSE 5%-WATER - 50 ML IVPB ONE (18:35)
[2018-02-23] MEDS ORDERED: TRANEXAMIC ACID 1000 MG/10 ML VIAL IVPUSH ONE (18:35)
[2018-02-23] MEDS ORDERED: CELECOXIB 200 MG CAPSULE PO ONE (18:35)
[2018-02-23] MEDS ORDERED: oxyCODONE HCL 10 MG SUSTAINED ACTING TABLET PO ONE (18:35)
[2018-02-23] MEDS ORDERED: PANTOPRAZOLE 40 MG TABLET (FP) PO ONE (18:37)
[2018-02-24] MEDS ORDERED: PANTOPRAZOLE 40 MG TABLET (FP) ONE (07:35)
[2018-02-24] MEDS ORDERED: oxyCODONE HCL 10 MG SUSTAINED ACTING TABLET ONE (07:35)
[2018-02-24] MEDS ORDERED: GABAPENTIN 300 MG CAPSULE (FP) ONE (07:35)
[2018-02-24] MEDS ORDERED: CELECOXIB 200 MG CAPSULE ONE (07:36)
--- NOTE | 2018-02-24 07:44 | HP ---
Admitting History and Physical - Admission Chief Complaint: Right hip osteoarthritis x years History of Present Illness: 68 year old male presents today regarding his right hip. Longstanding history of right hip osteoarthritis. Patient complains of pain, limited ROM, difficulty ambulating and difficulty with ADLs. Patient has failed conservative treatment measures including PO medication, activity medication, injections and exercise program. At this point, patient would like to proceed with a right total hip arthroplasty, MAKOplasty. 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 Home Medications - Allergies Allergies/Adverse Reactions: Allergies Allergy/AdvReac Type Severity Reaction Status Date / Time No Known Drug Allergies Allergy Verified 02/16/18 14:42 - Home Medications Home Medications: Ambulatory Orders Insulin (LOG) Aspart [NovoLOG -] 5 unit SQ ASDIR PRN 02/20/12 Insulin Glargine,Hum.rec.anlog [Lantus (10mL VIAL) -] 25 units SQ DAILY Carvedilol 12.5 mg PO DAILY 12/02/14 Brimonidine Tartrate/Timolol [Combigan 0.2%-0.5% Eye Drops] 1 drop OD BID Prednisolone 0.12% Ophthalmic [Pred Mild 0.12% -] 1 drop OS BID 05/16/17 Amlodipine Besylate 10 mg PO HS 02/16/18 Losartan Potassium 100 mg PO DAILY 02/16/18 Simvastatin 20 mg PO HS 02/16/18 Review of Systems - Review of Systems Musculoskeletal: reports: Decreased ROM (right hip), Joint Pain (right hip) Physical Examination Vital Signs: Vital Signs Temperature 98.3 F 02/24/18 07:17 Pulse Rate 74 02/24/18 07:17 Respiratory Rate 18 02/24/18 07:17 Blood Pressure 156/86 02/24/18 07:17 O2 Sat by Pulse Oximetry (%) Constitutional: Yes: Well Nourished, No Distress Eyes: Yes: Conjunctiva Clear HENT: Yes: Atraumatic, Normocephalic Neck: Yes: Supple Cardiovascular: Yes: Regular Rate and Rhythm Respiratory: Yes: Regular Gastrointestinal: Yes: Soft ...Rectal Exam: Yes: Deferred Musculoskeletal: Yes: Joint Stiffness (right hip) Assessment/Plan 68 year old male presents today regarding his right hip. Longstanding history of right hip osteoarthritis. Patient complains of pain, limited ROM, difficulty ambulating and difficulty with ADLs. Patient has failed conservative treatment measures including PO medication, activity medication, injections and exercise program. At this point, patient would like to proceed with a right total hip arthroplasty, MAKOplasty. Pros, cons, risks, benefits and alternatives of a right total hip arthroplasty, MAKOplasty, were discussed with the patient at length. Patient confirms his understanding and consents to proceed with a right total hip arthroplasty, MAKOplasty.
[2018-02-24] MEDS ORDERED: DEXAMETHASONE SOD PHOSPHATE/PF 10 MG/ML SDV ONE (08:05)
[2018-02-24] MEDS ORDERED: MIDAZOLAM HCL 2 MG/2 ML SINGLE DOSE VIAL ONE (08:05)
[2018-02-24] MEDS ORDERED: BUPIVACAINE HCL/PF (5 MG/ML) 30 ML VIAL IJ ONE (08:06)
[2018-02-24] MEDS ORDERED: LIDOCAINE 1% P/F 10 MG/ML VIAL ONE (08:06)
[2018-02-24] MEDS ORDERED: PROPOFOL 20 ML ONE (08:32)
[2018-02-24] MEDS ORDERED: TRANEXAMIC ACID 1000 MG/10 ML VIAL IVPB ONE ×2 (09:38→11:05)
[2018-02-24] MEDS ORDERED: ROPIVICAINE 0.2%/MORPH PF/KETOROLAC - 51ML DISP.SYRINGE IA ONE ×2 (09:38→11:05)
[2018-02-24] MEDS ORDERED: VANCOMYCIN 1,000 MG VIAL (RESTRICTED TO ID ONLY) IVPB ONE ×2 (09:38→11:05)
[2018-02-24] MEDS ORDERED: ONDANSETRON 4 MG/2 ML VIAL IVPUSH PRN ×2 (09:46→11:51)
[2018-02-24] MEDS ORDERED: oxyCODONE HCL 5 MG TABLET PO PRN (09:47)
[2018-02-24] MEDS ORDERED: LACTATED RINGERS SOLUTION 1,000 ML IV SCH ×2 (10:00→12:00)
[2018-02-24] MEDS ORDERED: LABETALOL HCL 5 MG/1 ML (100MG/20 ML VIAL) ONE (11:04)
--- NOTE | 2018-02-24 11:47 | OP ---
Operative Note - Note: Operative Date: 02/24/18 Pre-Operative Diagnosis: right hip OA Operation: right AHMET DILIA Post-Operative Diagnosis: Same as Pre-op Surgeon: Ramiro Vidales Keyliner: Maddy Guillaume Anesthesia: Spinal Estimated Blood Loss (mls): 200
[2018-02-24] MEDS ORDERED: Insulin (LOG) Aspart 100 UNITS/ML VIAL SQ PRN (11:49)
[2018-02-24] MEDS ORDERED: MAGNESIUM HYDROX 2400MG/30ML ORAL SUSPENSION 30 ML CUP PO PRN (11:51)
[2018-02-24] MEDS ORDERED: MAG HYDROX/AL HYDROX/SIMETH 30 ML UNIT-DOSE CUP PO PRN (11:51)
[2018-02-24] MEDS ORDERED: ACETAMINOPHEN 1000 MG/100 ML VIAL (NON FORMULARY) IVPB ONE (12:01)
[2018-02-24] MEDS ORDERED: KETOROLAC TROMETHAMINE 30 MG/1 ML VIAL ONE (12:04)
[2018-02-24] MEDS ORDERED: KETOROLAC TROMETHAMINE 30 MG/1 ML VIAL IVPUSH SCH (12:15)
--- NOTE | 2018-02-24 12:29 | SPEC ---
DATE OF OPERATION: 02/24/2018 PREOPERATIVE DIAGNOSIS: Right hip osteoarthritis. POSTOPERATIVE DIAGNOSIS: Right hip osteoarthritis. PROCEDURE: Right total hip replacement with MAKOplasty robotic navigation. ATTENDING: Ramiro Vidales MD BINDING DYER: VIOLET Renteria ANESTHESIA: Spinal plus sedation. ESTIMATED BLOOD LOSS: 200 mL. COMPLICATIONS: None. DISPOSITION: The patient was taken to the PACU in stable condition. IMPLANTS USED: Vee Accolade II size 5 femoral component, Vee Tritanum 54-mm acetabular component, MDM bipolar head ball and liner with inner ceramic +4 mm offset head ball. INDICATIONS: This is a 68-year-old male who presented to the office complaining of severe right hip pain. He was seen and examined by Dr. Vidales and diagnosed with severe right hip osteoarthritis. The patient was initially treated nonoperatively but continued to have severe pain and ambulatory dysfunction. He was, therefore, indicated for a total hip replacement. The risks, benefits, and alternatives to the procedure were explained to the patient, and he elected to proceed with the procedure. DESCRIPTION OF PROCEDURE: On the day of surgery, the patient was taken to the operating room and placed on the OR table. Spinal anesthesia was administered by the anesthesiologist. The patient was then positioned in the lateral decubitus position on the table and all bony prominences were padded. An axillary roll was placed. The operative hip was then prepped and draped in the usual sterile fashion and intravenous antibiotics were given for infection prophylaxis. A surgical time-out was then performed with the team, and the patients identity, procedure, side, availability of implants, and the administration of antibiotics were confirmed. An approximately 15-cm longitudinal incision was made through the skin centered on the greater trochanter of the hip. This dissection was carried down through the subcutaneous tissues to the deep fascia. This fascia was then incised, and a Cobra was placed around the inferior femoral neck. Electrocautery was used to reflect the anterior 40% of the gluteus medius and minimus starting at the musculotendinous junction and leaving a cuff for closure. This was reflected to reveal the capsule of the hip joint. An anterior capsulectomy was performed and the femoral head and neck were visualized. Grade 4 changes were noted diffusely throughout the joint. At this point, three small stab incisions were made superior to the main incision along the iliac crest. Three self-drilling Steinmann pins were then placed and the Phil pelvic array was attached. Reference points on the limb were then entered into the robotic device and the limb length deficiency, offset, and femoral neck resection level were then calculated by the software. The hip was then dislocated with traction and external rotation. An oscillating saw was used to make the femoral neck cut at the level previously templated, and the femoral head was removed. Attention was then turned to the acetabulum. Retractors were then placed around the acetabulum and the labrum was removed. An acetabular checkpoint pin and the Ovuline software were used to register the contours of the acetabulum. The acetabulum was then reamed in a single stage to the preoperatively templated size using the Phil robotic arm. The appropriately sized cup was then impacted and had solid fixation as well as the preset inclination and version of 40 and 20 degrees, respectively. A polyethylene liner was then placed in the cup. Attention was then turned back to the femur, which was externally rotated for improved visualization. A femoral neck elevator was used to present the femoral neck cut, a box osteotome was used to enter the femoral canal, and a canal finder was used to go down the femoral shaft. The Phil broaches were used sequentially until the optimal scratch fit was achieved. This correlated with the preoperatively templated size. From here, several different offset head and neck configurations were tested until excellent stability and length were obtained. These measurements were quantified using the Ovuline software. All trial components were then removed, the femur was copiously irrigated, and the final components were placed. After final implants were placed, a 3-minute dilute Betadine lavage was performed. Following this, the wound was thoroughly irrigated with normal saline via pulsatile lavage, and wound closure was begun. Leg length and stability were checked again and found to be excellent. Irrigation was performed again. Wound closure was started by repairing the abductor muscles with a No. 2 FiberWire stitch in a Krackow configuration passed through bone tunnels in the greater trochanter and tied over a bony bridge. This repair was then reinforced with a 0 V-Loc 180 barbed suture. Next, No. 1 Polysorb and 0 V-Loc 180 were used to close the fascia. The deep subcutaneous tissue was closed with No. 1 Polysorb sutures, and 2-0 Polysorb was used for the superficial subcutaneous tissue. The skin was closed using both 3-0 V-Loc 90 suture in a running subcuticular fashion and SwiftSet skin adhesive. The Phil array and pins were removed from the iliac crest and the stab incision sites were irrigated and closed with 4-0 Polysorb sutures and SwiftSet skin adhesive. Once this was completed, a sterile dressing was applied. The patient was then awakened and taken to the PACU in stable condition. Anthony [id number]
[2018-02-24] MEDS: traMADol HCL 50 MG TABLET PO SCH ×2 (12:30→17:24)
[2018-02-24] MEDS ORDERED: INSULIN (NOVOLOG) ASPART 100 UNITS/ML 10ML VIAL ONE (17:07)
[2018-02-24] MEDS: INSULIN (NOVOLOG) ASPART 100 UNITS/ML 10ML VIAL SQ SCH ×2 (17:24→22:29)
[2018-02-24] MEDS: CEFAZOLIN 2 GM/D5W 2 GM/50 ML ML IVPB SCH (17:24)
[2018-02-24] MEDS: ACETAMINOPHEN 325 MG TABLET (FP) PO SCH (17:25)
[2018-02-24] MEDS ORDERED: DEXAMETHASONE SOD PHOSPHATE 10 MG/1 ML VIAL IVPB ONE (20:00)
[2018-02-24] MEDS: prednisoLONE ACETATE 0.12% OPTH SUSP- 5 ML BOTTLE OS SCH (21:40)
[2018-02-24] MEDS: SENNOSIDES/DOCUSATE COMBO (SENNA PLUS) TABLET (UD) PO SCH (21:40)
[2018-02-24] MEDS: ATORVASTATIN CA 10 MG TABLET (FP) PO SCH (21:40)
[2018-02-24] MEDS: amLODIPine BESYLATE 10 MG TABLET (FP) PO SCH (21:40)
[2018-02-24] MEDS: ASCORBIC ACID 500 MG TABLET (FP) PO SCH (21:40)
[2018-02-24] MEDS: GABAPENTIN 300 MG CAPSULE (FP) PO SCH (21:40)
[2018-02-24] MEDS: BRIMONIDINE TARTRATE 0.2% OPHTHALMIC 5 ML BOTTLE OD SCH (21:41)
[2018-02-24] MEDS: TIMOLOL 0.5% OPHTHALMIC SOL 5 ML BOTTLE OD SCH ×2 (21:41→21:48)
[2018-02-24] MEDS ORDERED: PATIENT'S OWN MEDICATION (NON-FORMULARY) (Simvastatin [Simvastatin] 20 MG) PO SCH (22:00)
[2018-02-24] MEDS ORDERED: PATIENT'S OWN MEDICATION (NON-FORMULARY) (Brimonidine Tartrate/Timolol [Combigan 0.2%-0.5% OD SCH (22:00)
[2018-02-24] MEDS ORDERED: CELECOXIB 200 MG CAPSULE PO SCH (22:00)
[2018-02-25] MEDS: traMADol HCL 50 MG TABLET PO SCH ×4 (00:42→17:30)
[2018-02-25] MEDS: ACETAMINOPHEN 325 MG TABLET (FP) PO SCH ×4 (00:42→17:30)
[2018-02-25] MEDS: CEFAZOLIN 2 GM/D5W 2 GM/50 ML ML IVPB SCH (02:12)
[2018-02-25] MEDS: INSULIN (LEVEMIR) 100 UNITS/ML UNITS SQ SCH (06:27)
[2018-02-25] MEDS: INSULIN (NOVOLOG) ASPART 100 UNITS/ML 10ML VIAL SQ SCH ×4 (06:28→22:15)
[2018-02-25 08:14] LABS: HEMOGLOBIN 13.3 GM/dl (11.7-16.9); MCHC 33.1 g/dl (32.0-35.9); MEAN CELL VOLUME 90.4 fl (80-96); MEAN PLT VOLUME 9.8 fl (7.5-11.1); PLATELET COUNT 218 K/MM3 (134-434); RBC 4.42 M/mm3 (4.00-5.60); RDW 12.5 % (11.9-15.9); WHITE BLOOD COUNT 11.5 K/mm3 (4.0-10.8)
[2018-02-25 08:33] LABS: ANION GAP 8 MMOL/L (8-16); BLOOD UREA NITROGEN 34 mg/dl (7-18); CHLORIDE 101 mmol/L (98-107); CO2 22 mmol/L (22-28); CREATININE 1.8 mg/dl (0.6-1.3); GLUCOSE,RANDOM 204 mg/dl (74-106); POTASSIUM 4.9 mmol/L (3.5-5.1); SODIUM 131 mmol/L (136-145)
[2018-02-25] MEDS: ASPIRIN 325 MG TABLET PO SCH (09:01)
[2018-02-25] MEDS ORDERED: PT OWN MED DRAWER 7, Y5N ONE ×2 (09:10→21:14)
--- NOTE | 2018-02-25 09:31 | PN ---
Progress Note (short form) - Note Progress Note: Post op day#1.S/p Right total hip replacement under spinal anesthesia with Right L2 plexus block uneventful.Patient stable and does not c/o pain.No any anesthesia related problem.Patient Dc from the anesthesia care.
[2018-02-25] MEDS: LOSARTAN POTASSIUM 50 MG TABLET (FP) PO SCH (09:46)
[2018-02-25] MEDS: CARVEDILOL 12.5 MG TABLET (FP) PO SCH (09:46)
[2018-02-25] MEDS: PANTOPRAZOLE 40 MG TABLET (FP) PO SCH (09:46)
[2018-02-25] MEDS: MULTIVITAMINS (DAILY MVI) TABLET (FP) PO SCH (09:46)
[2018-02-25] MEDS: GABAPENTIN 300 MG CAPSULE (FP) PO SCH ×2 (09:46→21:34)
[2018-02-25] MEDS: ASCORBIC ACID 500 MG TABLET (FP) PO SCH ×2 (09:46→21:34)
[2018-02-25] MEDS: SENNOSIDES/DOCUSATE COMBO (SENNA PLUS) TABLET (UD) PO SCH ×2 (09:46→21:34)
[2018-02-25] MEDS: TIMOLOL 0.5% OPHTHALMIC SOL 5 ML BOTTLE OD SCH ×2 (09:50→21:35)
[2018-02-25] MEDS: prednisoLONE ACETATE 0.12% OPTH SUSP- 5 ML BOTTLE OS SCH ×2 (09:50→21:32)
[2018-02-25] MEDS: BRIMONIDINE TARTRATE 0.2% OPHTHALMIC 5 ML BOTTLE OD SCH ×2 (09:51→21:32)
[2018-02-25] MEDS ORDERED: PATIENT'S OWN MEDICATION (NON-FORMULARY) (Insulin Glargine,Hum.Rec.Anlog 25 UNITS) SQ SCH (10:00)
[2018-02-25] MEDS ORDERED: PATIENT'S OWN MEDICATION (NON-FORMULARY) (Losartan Potassium [Losartan Potassium] 100 MG) PO SCH (10:00)
[2018-02-25] MEDS: amLODIPine BESYLATE 10 MG TABLET (FP) PO SCH (21:34)
[2018-02-25] MEDS: ATORVASTATIN CA 10 MG TABLET (FP) PO SCH (21:34)
[2018-02-25] MEDS: oxyCODONE HCL 5 MG TABLET PO PRN (22:00)
[2018-02-25] MEDS ORDERED: BISACODYL 10 MG SUPP.RECT RC PRN (22:40)
[2018-02-25] MEDS ORDERED: BISACODYL 5 MG TABLET.DR (FP) PO PRN (22:40)
[2018-02-25] MEDS ORDERED: REFRIGERATED ANITBIOTICS ONE (22:41)
[2018-02-25] MEDS ORDERED: LACTULOSE 20 GM/30 ML UDC (FOR ORAL USE ONLY) PO PRN (22:41)
--- NOTE | 2018-02-25 22:44 | PN ---
Progress Note (short form) - Note Progress Note: Pt seen and examined. C/o constipation. Ambulated with PT with minimal pain. AVSS Selected Entries 02/25/18 02/25/18 18:00 19:58 Temperature 98.0 F Pulse Rate 80 Respiratory 17 Rate Blood Pressure 143/73 O2 Sat by Pulse 100 99 Oximetry (%) Oxygen Delivery Room Air Room Air Method Laboratory Tests 02/25/18 02/25/18 02/25/18 06:17 07:35 07:35 WBC 11.5 H Hgb 13.3 Hct 40.0 Plt Count 218 Sodium 131 L Potassium 4.9 Chloride 101 Carbon Dioxide 22 Anion Gap 8 BUN 34 H Creatinine 1.8 H Creat Clearance w eGFR 37.60 POC Glucometer 232 Random Glucose 204 H Calcium 9.0 Gen: NAD Abd: softly distended, NT RLE: c/d/i, NVID A/P POD#1 s/p R DILIA PT/OOB ABD xray ordered Hosptalist consult in AM for ileus Dulcolax and lactulose ordered Plan for d/c home tomorrow if ileus resolves and he has a bowel movement, otherwise d/c Wednesday
--- NOTE | 2018-02-25 22:47 | DS ---
Physical Examination Vital Signs: Vital Signs Temperature 98.0 F 02/25/18 18:00 Pulse Rate 80 02/25/18 18:00 Respiratory Rate 17 02/25/18 19:58 Blood Pressure 143/73 02/25/18 18:00 O2 Sat by Pulse Oximetry (%) 99 02/25/18 19:58 Labs: CBC, BMP 02/25/18 07:35 02/25/18 07:35 Discharge Summary Reason For Visit: OSTEOARTHRITIS OF RIGHT HIP Current Active Problems Osteoarthritis of right hip (Acute) Procedures: Principal: right AHMET DILIA Hospital Course: Admitted for elective surgery. Procedure performed without complications. Pt received postoperative antibiotic prophylaxis and DVT ppx. Ambulated with physical therapy. Stable for discharge home with outpatient followup. Condition: Stable - Instructions Diet, Activity, Other Instructions: Dr Vidales - Hip Replacement Instructions Keep the Aquacel dressing on until removed by Dr. Vidales in 10-14 days - it is antibacterial and waterproof and you can shower with it on. Call the office for a follow-up appointment with Dr. Vidales in 10-14 days. Take one Aspirin 325mg daily for 6 weeks to prevent blood clots in your legs. Take one Pantoprazole 40mg daily for 6 weeks to protect against heartburn and ulcers. Take Cephalexin (antibiotic) 3x/day for 10 days to help prevent skin infection. Take a multivitamin, stool softener and extra Vitamin C supplement daily. For pain: *Mild pain (1-3/10): Take 1 Tramadol tablet every 4 hours as needed. Moderate pain (4-6/10): Take 1 Tramadol tablet and 1 Percocet tablet every 4 hours as needed. Severe pain (7-10/10): Take 1 Tramadol tablet and 2 Percocet tablets every 4 hours as needed. Activity: You can put as much weight on the operative leg as you want. For the first 6 weeks, all you need to do is walk around the house, go up/down stairs, and sit down/get up. After 6 weeks when everything is healed (and bone has grown into the implant) you will be sent for more intensive outpatient physical therapy. Always use a walker or cane for balance and to prevent falls. Expect to see swelling / bruising from the operative site all the way down to your toes. Wear the Compression stocking on the operative side during the day to minimize how much swelling there is in your foot/ankle. Don't wear the stocking at night. You don't have to wear the stocking on the other side. Disposition: VNS/HOME HEALTH CARE - Home Medications Comprehensive Discharge Medication List: Ambulatory Orders Insulin (LOG) Aspart [NovoLOG -] 5 unit SQ ASDIR PRN 02/20/12 Insulin Glargine,Hum.rec.anlog [Lantus (10mL VIAL) -] 25 units SQ DAILY Carvedilol 12.5 mg PO DAILY 12/02/14 Brimonidine Tartrate/Timolol [Combigan 0.2%-0.5% Eye Drops] 1 drop OD BID Prednisolone 0.12% Ophthalmic [Pred Mild 0.12% -] 1 drop OS BID 05/16/17 Amlodipine Besylate 10 mg PO HS 02/16/18 Losartan Potassium 100 mg PO DAILY 02/16/18 Simvastatin 20 mg PO HS 02/16/18 Ascorbic Acid [Vitamin C -] 500 mg PO BID tablet 02/25/18 Aspirin [ASA -] 325 mg PO DAILY@0800 tablet 02/25/18 Cephalexin Monohydrate [Keflex -] 500 mg PO TID #30 capsule 02/25/18 Multivitamins [Multivit ([facility] Formulary)] 1 tab PO DAILY tab 02/25/18 Oxycodone HCl/Acetaminophen [Percocet 5-325 mg Tablet] 1 - 2 tab PO Q4H PRN #60 tablet MDD 10 02/25/18 Pantoprazole Sodium [Protonix -] 40 mg PO DAILY #40 tablet.ec 02/25/18 Sennosides/Docusate Sodium [Pericolace -] 2 tablet PO BID tablet 02/25/18 traMADol HCL [Ultram -] 50 mg PO Q4H PRN #42 tablet MDD 6 02/25/18
[2018-02-26] MEDS: traMADol HCL 50 MG TABLET PO SCH ×5 (00:15→23:44)
[2018-02-26] MEDS: ACETAMINOPHEN 325 MG TABLET (FP) PO SCH ×5 (06:14→23:42)
[2018-02-26] MEDS: INSULIN (NOVOLOG) ASPART 100 UNITS/ML 10ML VIAL SQ SCH ×4 (06:19→23:05)
[2018-02-26] MEDS: INSULIN (LEVEMIR) 100 UNITS/ML UNITS SQ SCH (06:20)
[2018-02-26] MEDS ORDERED: PT OWN MED DRAWER 7, Y5N ONE ×4 (07:01→21:16)
[2018-02-26] MEDS: ASPIRIN 325 MG TABLET PO SCH (08:30)
[2018-02-26 08:44] LABS: HEMATOCRIT 34.9 % (35.4-49); HEMOGLOBIN 11.9 GM/dl (11.7-16.9); MCH 30.7 pg (25.7-33.7); MCHC 33.9 g/dl (32.0-35.9); MEAN CELL VOLUME 90.6 fl (80-96); MEAN PLT VOLUME 10.1 fl (7.5-11.1); PLATELET COUNT 195 K/MM3 (134-434); RBC 3.86 M/mm3 (4.00-5.60); RDW 13.3 % (11.9-15.9)
[2018-02-26 08:46] LABS: ANION GAP 8 MMOL/L (8-16); BLOOD UREA NITROGEN 40 mg/dl (7-18); CALCIUM 8.9 mg/dl (8.4-10.2); CHLORIDE 103 mmol/L (98-107); CO2 23 mmol/L (22-28); CREATININE 1.7 mg/dl (0.6-1.3); GLUCOSE,RANDOM 201 mg/dl (74-106); POTASSIUM 4.2 mmol/L (3.5-5.1); SODIUM 134 mmol/L (136-145)
[2018-02-26] MEDS: MULTIVITAMINS (DAILY MVI) TABLET (FP) PO SCH (10:00)
[2018-02-26] MEDS: LOSARTAN POTASSIUM 50 MG TABLET (FP) PO SCH (10:31)
[2018-02-26] MEDS: ASCORBIC ACID 500 MG TABLET (FP) PO SCH ×2 (10:31→21:23)
[2018-02-26] MEDS: PANTOPRAZOLE 40 MG TABLET (FP) PO SCH (10:31)
[2018-02-26] MEDS: CARVEDILOL 12.5 MG TABLET (FP) PO SCH (10:32)
[2018-02-26] MEDS: SENNOSIDES/DOCUSATE COMBO (SENNA PLUS) TABLET (UD) PO SCH ×2 (10:32→21:23)
[2018-02-26] MEDS: GABAPENTIN 300 MG CAPSULE (FP) PO SCH ×2 (10:33→21:23)
[2018-02-26] MEDS: prednisoLONE ACETATE 0.12% OPTH SUSP- 5 ML BOTTLE OS SCH ×2 (10:33→21:24)
[2018-02-26] MEDS: BRIMONIDINE TARTRATE 0.2% OPHTHALMIC 5 ML BOTTLE OD SCH ×2 (10:33→21:24)
[2018-02-26] MEDS: TIMOLOL 0.5% OPHTHALMIC SOL 5 ML BOTTLE OD SCH ×2 (10:34→21:24)
[2018-02-26] MEDS: amLODIPine BESYLATE 10 MG TABLET (FP) PO SCH (21:22)
[2018-02-26] MEDS: ATORVASTATIN CA 10 MG TABLET (FP) PO SCH (21:23)
[2018-02-27] MEDS: ACETAMINOPHEN 325 MG TABLET (FP) PO SCH ×2 (06:02→13:10)
[2018-02-27] MEDS: traMADol HCL 50 MG TABLET PO SCH ×2 (06:03→13:10)
[2018-02-27] MEDS: INSULIN (LEVEMIR) 100 UNITS/ML UNITS SQ SCH (06:08)
[2018-02-27] MEDS: INSULIN (NOVOLOG) ASPART 100 UNITS/ML 10ML VIAL SQ SCH ×2 (06:18→16:44)
[2018-02-27] MEDS ORDERED: PT OWN MED DRAWER 7, Y5N ONE (09:30)
[2018-02-27] MEDS: MULTIVITAMINS (DAILY MVI) TABLET (FP) PO SCH (09:33)
[2018-02-27] MEDS: PANTOPRAZOLE 40 MG TABLET (FP) PO SCH (09:33)
[2018-02-27] MEDS: ASPIRIN 325 MG TABLET PO SCH (09:34)
[2018-02-27] MEDS: oxyCODONE HCL 5 MG TABLET PO PRN (09:34)
[2018-02-27] MEDS: SENNOSIDES/DOCUSATE COMBO (SENNA PLUS) TABLET (UD) PO SCH (09:34)
[2018-02-27] MEDS: GABAPENTIN 300 MG CAPSULE (FP) PO SCH (09:35)
[2018-02-27] MEDS: LOSARTAN POTASSIUM 50 MG TABLET (FP) PO SCH (09:35)
[2018-02-27] MEDS: CARVEDILOL 12.5 MG TABLET (FP) PO SCH (09:35)
[2018-02-27] MEDS: ASCORBIC ACID 500 MG TABLET (FP) PO SCH (09:35)
[2018-02-27] MEDS: TIMOLOL 0.5% OPHTHALMIC SOL 5 ML BOTTLE OD SCH (09:36)
[2018-02-27] MEDS: BRIMONIDINE TARTRATE 0.2% OPHTHALMIC 5 ML BOTTLE OD SCH (09:37)
[2018-02-27] MEDS: prednisoLONE ACETATE 0.12% OPTH SUSP- 5 ML BOTTLE OS SCH (10:00)
--- NOTE | 2018-02-27 14:22 | PN ---
Progress Note (short form) - Note Progress Note: Pt seen and examined. Constipation resolved. Ambulated with PT with minimal pain. Doing very well. AVSS Selected Entries 02/27/18 06:58 Temperature 98.1 F Pulse Rate 70 Respiratory 18 Rate Blood Pressure 133/68 O2 Sat by Pulse 96 Oximetry (%) Oxygen Delivery Room Air Method Laboratory Tests 02/26/18 02/26/18 07:45 07:45 WBC 11.0 H Hgb 11.9 Hct 34.9 L Plt Count 195 Sodium 134 L Potassium 4.2 Chloride 103 Carbon Dioxide 23 Anion Gap 8 BUN 40 H Creatinine 1.7 H Random Glucose 201 H Calcium 8.9 Gen: NAD Abd: softly distended, NT RLE: c/d/i, NVID A/P s/p R DILIA PT/OOB ABD xray shows no ileus. Constipation resolved. D/c home today - f/u in office in 10-14 days.
[2018-02-27 14:28] VITALS: BP 116/56; PULSE 61; TEMP 97.4
--- NOTE | 2018-03-02 14:57 | PATH ---
Surgical Pathology Report Patient Name: LEANN HIGGINS Med. Rec. #: [id number] /Age/Gender: 1950 (Age: 68) / M Account: [id number] Location: [facility] Taken: 02/24/2018 Received: 02/24/2018 Reported: 03/02/2018 Physicians: Ramiro Vidales M.D. Specimen(s) Received RIGHT FEMORAL HEAD Clinical History Osteoarthritis of right hip Final Diagnosis FEMORAL HEAD, RIGHT, TOTAL HIP PLACEMENT: DEGENERATIVE JOINT DISEASE. Electronically Signed Irene Ayon M.D. Gross Description Received in formalin, labeled "right femoral head," is a 4.8 x 4.8 x 3.7 cm. femoral head with a 1.3 cm in length portion of femoral neck attached. The margin of resection is smooth. There is a 3.7 cm in greatest dimension area of eburnation present. The remaining articular surface is guajardo-yellow and diffusely nodular and granular. The underlying trabecular bone is yellow and hard. A independent sales representative section is submitted in one cassette, following decalcification. /02/28/2018 [facility]02/28/2018
== END 2018-02-27 16:47 | disposition home health service (06) | DRG 301 ==
LOC: FM/S 02-24 06:50
PROVIDERS: ADMIT Student in an Organized Health Care Education/Training Program; ATTEND Student in an Organized Health Care Education/Training Program
PROC: 8E0Y0CZ Robotic Assisted Procedure of Lower Extremity, Open Approach (ICD-10-PCS; 2018-02-24)
PROC: 0SR90JZ Replacement of Right Hip Joint with Synthetic Substitute, Open Approach (ICD-10-PCS; principal; 2018-02-24 09:23)
DX: M16.11 Unilateral primary osteoarthritis, right hip (principal); E11.9 Type 2 diabetes mellitus without complications; Z79.4 Long term (current) use of insulin; I10 Essential (primary) hypertension; E78.5 Hyperlipidemia, unspecified; K59.00 Constipation, unspecified
CPT/HCPCS: 36415; 73502-TC-RT; 74019-TC-FY; 80048; 82962; 85027; 88304-TC; 88311-TC; 94760; 97116-GP; 97163-GP; J0131; J1100

== ENCOUNTER 2018-04-25 12:46 | Observation (INO) | payer OTHER ==
--- NOTE | 2018-04-25 13:07 | PDOC ---
History of Present Illness - General Chief Complaint: Syncope/Near Syncope Stated Complaint: PASSED OUT Time Seen by Provider: 04/25/18 13:04 - History of Present Illness Initial Comments: 04/25/18 13:14 68 year old man with history blindness, glaucoma, DM and HTN who presents with diaphoresis and 2-3 min of LOC this morning while he was eating his breakfast. and daughter noted that he his eyes started rolling to the back of his head and was he unresponsive for several minutes. They called ambulance. bgm at that times was 130s. BP en route was hypotensive. He complained of shortness of breath at that time but denied any chest pain. After the episode the patient felt weak and short of breath but denied any other symptoms. The patient has had similar symptoms that occur every 5 months and last episode was hospitalized for 1 week and found to have a heart murmur. In December 2017 his ECHO showed an EF of 69%. The patient does have difficulty sleeping due to his blindness, but denies any changes in eating or drinking. He denies nausea, chest pain, abdominal pain, recent sickness, recent travel, N/V/D/C, dysuria or hematuria. PSHX: R hip replacement (02/24/18) Meds: lantus, novolog, HTN meds Allergies: NKDA PCP: Past History - Past Medical History Allergies/Adverse Reactions: Allergies Allergy/AdvReac Type Severity Reaction Status Date / Time No Known Drug Allergies Allergy Verified 04/25/18 12:48 Home Medications: Ambulatory Orders Insulin (LOG) Aspart [NovoLOG -] 5 unit SQ ASDIR PRN 02/20/12 Insulin Glargine,Hum.rec.anlog [Lantus (10mL VIAL) -] 25 units SQ DAILY Carvedilol 12.5 mg PO DAILY 12/02/14 Brimonidine Tartrate/Timolol [Combigan 0.2%-0.5% Eye Drops] 1 drop OD BID Prednisolone 0.12% Ophthalmic [Pred Mild 0.12% -] 1 drop OS BID 05/16/17 Amlodipine Besylate 10 mg PO DAILY 02/16/18 Losartan Potassium 100 mg PO DAILY 02/16/18 Simvastatin 20 mg PO HS 02/16/18 Anemia: No Asthma: No Cancer: No (DENIES PROSTATE CA BUT HAD REMOVED 2010) Cardiac Disorders: No CVA: No COPD: No CHF: No Dementia: No Diabetes: Yes (2013 SYNCOPAL EPISODES IN 2016) GI Disorders: No Disorders: Yes (ENLARGED PROSTATE) HTN: Yes Hypercholesterolemia: Yes Liver Disease: No Seizures: No Thyroid Disease: No Other medical history: BLIND - Surgical History Abdominal Surgery: No Appendectomy: No Cardiac Surgery: No Cholecystectomy: No Lung Surgery: No Neurologic Surgery: No Orthopedic Surgery: No - Immunization History Td Vaccination: Yes Immunization Up to Date: Yes - Suicide/Smoking/Psychosocial Hx Smoking Status: No Smoking History: Never smoked Have you smoked in the past 12 months: No Number of Cigarettes Smoked Daily: 0 Hx Alcohol Use: No Drug/Substance Use Hx: No Substance Use Type: None Hx Substance Use Treatment: No *Physical Exam - Vital Signs Last Vital Signs Temp Pulse Resp BP Pulse Ox 58 L 18 130/69 100 04/25/18 12:47 04/25/18 12:47 04/25/18 12:47 04/25/18 12:47 Moderate Sedation - Procedure Monitoring Vital Signs: Procedure Monitoring Vital Signs Temperature Pulse Rate 58 L 04/25/18 12:47 Respiratory Rate 18 04/25/18 12:47 Blood Pressure 130/69 04/25/18 12:47 O2 Sat by Pulse Oximetry (%) 100 04/25/18 12:47 ED Treatment Course - LABORATORY CBC & Chemistry Diagram: 04/25/18 13:30 04/25/18 13:30 Medical Decision Making - Medical Decision Making 04/25/18 13:46 68 year old man with history blindness, glaucoma, DM and HTN who presents with diaphoresis and 2-3 min of LOC this morning while he was eating his breakfast. and daughter noted that he his eyes started rolling to the back of his head and was he unresponsive for several minutes. They called ambulance. bgm at that times was 130s. BP en route was hypotensive. He complained of shortness of breath at that time but denied any chest pain. The patient has had similar symptoms that occur every 5 months and last episode was hospitalized for 1 week and found to have a heart murmur. In December 2017 his ECHO showed an EF of 69%. The patient does have difficulty sleeping due to his blindness, but denies any changes in eating or drinking. He denies nausea, chest pain, abdominal pain, recent sickness, recent travel, N/V/D/C, dysuria or hematuria. DDX including but not limited to: arrythmia vs ACS vs hypoglycemia vs intracranial bleed W/U: - cbc, cmp, trop, lactic acid, blood culture - ua, ucx - ekg - cxr - head CT TX: - IVF ED Course: Patient tired appearing. Rectal Temp of 95.1F Anastasia hugger applied. 04/25/18 14:26 CBC, cmp, trop and UA unremarkable Plan to admit patient for syncope and hypothermia with unknown cause. Will admit to medicine for further workup and evaluation. Blood cultures, lactic acid pending. Patient accepted to medicine service *DC/Admit/Observation/Transfer Diagnosis at time of Disposition: Syncope, Hypothermia - Discharge Dispostion Disposition: HOME Condition at time of disposition: Stable Decision to Admit order: Yes - Referrals Referrals: Clem Sue MD [Primary Care Provider] - - Patient Instructions - Post Discharge Activity
[2018-04-25 14:00] LABS: BASO % 0.2 % (0-2.0); EOS % 0.1 % (0-4.5); HEMATOCRIT 38.8 % (35.4-49); HEMOGLOBIN 12.5 GM/dl (11.7-16.9); LYMPH % 20.5 % (8-40); MCH 29.2 pg (25.7-33.7); MCHC 32.3 g/dl (32.0-35.9); MEAN CELL VOLUME 90.6 fl (80-96); MONO % 8.1 % (3.8-10.2); NEUT % 71.1 % (42.8-82.8); PLATELET COUNT 250 K/MM3 (134-434); RBC 4.28 M/mm3 (4.00-5.60); RDW 13.2 % (11.9-15.9); WHITE BLOOD COUNT 6.8 K/mm3 (4.0-10.8)
[2018-04-25] MEDS ORDERED: SODIUM CHLORIDE 1,000 ML IV SCH (14:15)
[2018-04-25 14:21] LABS: ALBUMIN 3.9 g/dl (3.5-5.0); ALK PHOS 92 U/L (32-92); ANION GAP 9 MMOL/L (8-16); BILIRUBIN,TOTAL 0.5 mg/dl (0.2-1.0); BLOOD UREA NITROGEN 21 mg/dl (7-18); CALCIUM 9.3 mg/dl (8.4-10.2); CHLORIDE 102 mmol/L (98-107); CO2 25 mmol/L (22-28); CREATININE 1.8 mg/dl (0.6-1.3); GLUCOSE,RANDOM 160 mg/dl (74-106); POTASSIUM 4.4 mmol/L (3.5-5.1); SGOT/AST 19 U/L (10-42); SGPT/ALT 16 U/L (10-40); SODIUM 136 mmol/L (136-145); TOT PROT 7.7 g/dl (6.4-8.3)
[2018-04-25 14:44] LABS: PH,URINE 5.5 (4.5-8); URINE APPEARANCE Clear; URINE BILIRUBIN 1+ (NEGATIVE); URINE COLOR Yellow; URINE GLUCOSE (UA) Negative (NEGATIVE); URINE KETONE Trace (NEGATIVE); URINE LEUK ESTERASE Negative (NEGATIVE); URINE NITRITE Negative (NEGATIVE); URINE PROTEIN 2+ (NEGATIVE); URINE UROBILINOGEN 0.2 (0.2-1.0)
[2018-04-25 15:36] LABS: EPI CELLS FEW /HPF; URINE MUCUS 1+; URINE RBC 0-2 /hpf (0-3)
[2018-04-25 15:44] LABS: INR 1.21 (0.82-1.09); PROTHROMBIN TIME (PATIENT) 13.5 SEC (10.2-13.0)
[2018-04-25 15:52] LABS: ACTIVATED PTT 25.8 SECONDS (25.2-36.5)
[2018-04-25] MEDS ORDERED: ACETAMINOPHEN 1000 MG/100 ML VIAL (NON FORMULARY) IVPB ONE (16:05)
[2018-04-25] MEDS ORDERED: ACETAMINOPHEN INJECTION 100 ML IVPB ONE (16:11)
[2018-04-25] MEDS: SODIUM CHLORIDE 1,000 ML IV SCH (16:21)
[2018-04-25] MEDS ORDERED: HEMOQUE TEST 1 EACH EACH ONE (16:24)
--- NOTE | 2018-04-25 16:24 | PDOC ---
Attending Attestation - Resident Resident Name: Rupinder Flores - ED Attending Attestation I have performed the following: I have examined & evaluated the patient, The case was reviewed & discussed with the resident, I agree w/resident's findings & plan, Exceptions are as noted - HPI HPI: 04/25/18 16:43 Reviewed Residents HPI - Physicial Exam PE: 04/25/18 16:43 Reviewed Residents PE - Medical Decision Making 04/25/18 16:42 68 years old past medical history significant for blindness glaucoma diabetes hypertension multiple episodes of syncope in the past with previous admissions and workup for the same Status post syncopal episode this morning Unchanged EKG laboratory analysis unremarkable Patient noted to be hypothermic on rectal temperature given a bear hugger Given hypothermia an episode of hypotension as reported by EMS, will observe on telemetery overnight Heart Score/ECG Review - ECG Impressions Comment:: 04/25/18 16:37 EKG performedt 1315 demonstrates normal sinus rhythm T-wave inversions laterally Unchanged from previous EKG. Interpreted by me
[2018-04-25] MEDS ORDERED: INSULIN (NOVOLOG) ASPART 100 UNITS/ML 10ML VIAL ONE ×2 (16:53→21:27)
[2018-04-25 17:01] LABS: VENOUS PH 7.34 (7.32-7.42); VENOUS PO2 40.9 mmHg (28-48)
[2018-04-25] MEDS: INSULIN SLIDING SCALE (NOVOLOG) 1 VIAL SQ SCH ×2 (17:07→21:28)
[2018-04-25 18:30] VITALS: BMI 24.7
--- NOTE | 2018-04-25 22:49 | HP ---
CHIEF COMPLAINT: PCP: HISTORY OF PRESENT ILLNESS: ER course was notable for: (1) (2) (3) Recent Travel: PAST MEDICAL HISTORY: PAST SURGICAL HISTORY: Social History: Smoking: Alcohol: Drugs: Family History: Allergies No Known Drug Allergies Allergy (Verified 04/25/18 12:48) HOME MEDICATIONS: Home Medications Medication Instructions Recorded Insulin (LOG) Aspart [NovoLOG -] 5 unit SQ ASDIR PRN 02/20/12 Insulin Glargine,Hum.rec.anlog 25 units SQ DAILY 02/20/12 [Lantus (10mL VIAL) -] Carvedilol 12.5 mg PO DAILY 12/02/14 Brimonidine Tartrate/Timolol 1 drop OD BID 05/16/17 [Combigan 0.2%-0.5% Eye Drops] Prednisolone 0.12% Ophthalmic 1 drop OS BID 05/16/17 [Pred Mild 0.12% -] Amlodipine Besylate 10 mg PO DAILY 02/16/18 Losartan Potassium 100 mg PO DAILY 02/16/18 Simvastatin 20 mg PO HS 02/16/18 REVIEW OF SYSTEMS CONSTITUTIONAL: Absent: fever, chills, diaphoresis, generalized weakness, malaise, loss of appetite, weight change HEENT: Absent: rhinorrhea, nasal congestion, throat pain, throat swelling, difficulty swallowing, mouth swelling, ear pain, eye pain, visual changes CARDIOVASCULAR: Absent: chest pain, syncope, palpitations, irregular heart rate, lightheadedness , peripheral edema RESPIRATORY: Absent: cough, shortness of breath, dyspnea with exertion, orthopnea, wheezing, stridor, hemoptysis GASTROINTESTINAL: Absent: abdominal pain, abdominal distension, nausea, vomiting, diarrhea, constipation, melena, hematochezia GENITOURINARY: Absent: dysuria, frequency, urgency, hesitancy, hematuria, flank pain, genital pain MUSCULOSKELETAL: Absent: myalgia, arthralgia, joint swelling, back pain, neck pain SKIN: Absent: rash, itching, pallor HEMATOLOGIC/IMMUNOLOGIC: Absent: easy bleeding, easy bruising, lymphadenopathy, frequent infections ENDOCRINE: Absent: unexplained weight gain, unexplained weight loss, heat intolerance, cold intolerance NEUROLOGIC: Absent: headache, focal weakness or paresthesias, dizziness, unsteady gait, seizure, mental status changes, bladder or bowel incontinence PSYCHIATRIC: Absent: anxiety, depression, suicidal or homicidal ideation, hallucinations. PHYSICAL EXAMINATION Vital Signs - 24 hr 04/25/18 04/25/18 04/25/18 12:47 13:35 13:40 Temperature 98.3 F 95.1 F L Pulse Rate 58 L Pulse Rate [ 73 Apical] Pulse Rate [ Left side Standing] Pulse Rate [ Right side Supine] Respiratory 18 18 Rate Blood Pressure 130/69 Blood Pressure [Left side Standing] Blood Pressure 121/71 [Right Arm] Blood Pressure [Right side Supine] O2 Sat by Pulse 100 100 Oximetry (%) 04/25/18 04/25/18 04/25/18 14:08 14:22 15:50 Temperature 98.5 F Pulse Rate Pulse Rate [ 69 75 Apical] Pulse Rate [ 86 Left side Standing] Pulse Rate [ 84 Right side Supine] Respiratory 18 18 Rate Blood Pressure Blood Pressure 122/81 [Left side Standing] Blood Pressure 122/73 110/64 [Right Arm] Blood Pressure 119/73 [Right side Supine] O2 Sat by Pulse 100 99 Oximetry (%) 04/25/18 04/25/18 04/25/18 17:05 17:08 20:17 Temperature 98.5 F 98.2 F Pulse Rate 79 70 Pulse Rate [ 79 Apical] Pulse Rate [ Left side Standing] Pulse Rate [ Right side Supine] Respiratory 18 18 18 Rate Blood Pressure 144/66 131/57 L Blood Pressure [Left side Standing] Blood Pressure 117/64 [Right Arm] Blood Pressure [Right side Supine] O2 Sat by Pulse 100 100 Oximetry (%) 04/25/18 20:25 Temperature Pulse Rate Pulse Rate [ Apical] Pulse Rate [ Left side Standing] Pulse Rate [ Right side Supine] Respiratory Rate Blood Pressure Blood Pressure [Left side Standing] Blood Pressure [Right Arm] Blood Pressure [Right side Supine] O2 Sat by Pulse 100 Oximetry (%) GENERAL: Awake, alert, and fully oriented, in no acute distress. HEAD: Normal with no signs of trauma. EYES: Pupils equal, round and reactive to light, extraocular movements intact, sclera anicteric, conjunctiva clear. No lid lag. EARS, NOSE, THROAT: Ears normal, nares patent, oropharynx clear without exudates. Moist mucous membranes. NECK: Normal range of motion, supple without lymphadenopathy, JVD, or masses. LUNGS: Breath sounds equal, clear to auscultation bilaterally. No wheezes, and no crackles. No accessory muscle use. HEART: Regular rate and rhythm, normal S1 and S2 without murmur, rub or gallop. ABDOMEN: Soft, nontender, not distended, normoactive bowel sounds, no guarding, no rebound, no masses. No hepatomegaly or splenomegaly. MUSCULOSKELETAL: Normal range of motion at all joints. No bony deformities or tenderness. No CVA tenderness. UPPER EXTREMITIES: 2+ pulses, warm, well-perfused. No cyanosis. No clubbing. No peripheral edema. LOWER EXTREMITIES: 2+ pulses, warm, well-perfused. No calf tenderness. No peripheral edema. NEUROLOGICAL: Cranial nerves II-XII intact. Normal speech. Normal gait. PSYCHIATRIC: Cooperative. Good eye contact. Appropriate mood and affect. SKIN: Warm, dry, normal turgor, no rashes or lesions noted, normal capillary refill. Laboratory Results - last 24 hr 04/25/18 04/25/18 04/25/18 13:30 13:30 13:30 WBC 6.8 RBC 4.28 Hgb 12.5 Hct 38.8 MCV 90.6 MCH 29.2 MCHC 32.3 RDW 13.2 Plt Count 250 D MPV 9.0 D Absolute Neuts (auto) 4.9 Neutrophils % 71.1 Lymphocytes % 20.5 D Monocytes % 8.1 Eosinophils % 0.1 Basophils % 0.2 PT with INR INR PTT (Actin FS) VBG pH POC VBG pCO2 POC VBG pO2 Mixed VBG HCO3 Sodium 136 Potassium 4.4 Chloride 102 Carbon Dioxide 25 Anion Gap 9 BUN 21 H Creatinine 1.8 H Creat Clearance w eGFR 37.60 POC Glucometer Random Glucose 160 H D Lactic Acid Calcium 9.3 Total Bilirubin 0.5 AST 19 ALT 16 Alkaline Phosphatase 92 Troponin I < 0.03 Total Protein 7.7 Albumin 3.9 Urine Color Urine Appearance Urine pH Ur Specific [place] Urine Protein Urine Glucose (UA) Urine Ketones Urine Blood Urine Nitrite Urine Bilirubin Urine Urobilinogen Ur Leukocyte Esterase Urine RBC Urine WBC Ur Epithelial Cells Hyaline Casts Urine Mucus Influenza A (Rapid) Influenza B (Rapid) 04/25/18 04/25/18 04/25/18 14:22 14:25 15:01 WBC RBC Hgb Hct MCV MCH MCHC RDW Plt Count MPV Absolute Neuts (auto) Neutrophils % Lymphocytes % Monocytes % Eosinophils % Basophils % PT with INR 13.5 H INR 1.21 PTT (Actin FS) 25.8 VBG pH POC VBG pCO2 POC VBG pO2 Mixed VBG HCO3 Sodium Potassium Chloride Carbon Dioxide Anion Gap BUN Creatinine Creat Clearance w eGFR POC Glucometer Random Glucose Lactic Acid Calcium Total Bilirubin AST ALT Alkaline Phosphatase Troponin I Total Protein Albumin Urine Color Yellow Urine Appearance Clear Urine pH 5.5 Ur Specific [place] >= 1.030 Urine Protein 2+ H Urine Glucose (UA) Negative Urine Ketones Trace Urine Blood Negative Urine Nitrite Negative Urine Bilirubin 1+ H Urine Urobilinogen 0.2 Ur Leukocyte Esterase Negative Urine RBC 0-2 Urine WBC 2-5 Ur Epithelial Cells Few Hyaline Casts 2-5 Urine Mucus 1+ Influenza A (Rapid) Negative Influenza B (Rapid) Negative 04/25/18 04/25/18 04/25/18 15:01 15:01 16:27 WBC RBC Hgb Hct MCV MCH MCHC RDW Plt Count MPV Absolute Neuts (auto) Neutrophils % Lymphocytes % Monocytes % Eosinophils % Basophils % PT with INR INR PTT (Actin FS) VBG pH 7.34 POC VBG pCO2 44.0 POC VBG pO2 40.9 Mixed VBG HCO3 23.0 Sodium Potassium Chloride Carbon Dioxide Anion Gap BUN Creatinine Creat Clearance w eGFR POC Glucometer [phone] Random Glucose Lactic Acid 1.7 Calcium Total Bilirubin AST ALT Alkaline Phosphatase Troponin I Total Protein Albumin Urine Color Urine Appearance Urine pH Ur Specific [place] Urine Protein Urine Glucose (UA) Urine Ketones Urine Blood Urine Nitrite Urine Bilirubin Urine Urobilinogen Ur Leukocyte Esterase Urine RBC Urine WBC Ur Epithelial Cells Hyaline Casts Urine Mucus Influenza A (Rapid) Influenza B (Rapid) 04/25/18 21:10 WBC RBC Hgb Hct MCV MCH MCHC RDW Plt Count MPV Absolute Neuts (auto) Neutrophils % Lymphocytes % Monocytes % Eosinophils % Basophils % PT with INR INR PTT (Actin FS) VBG pH POC VBG pCO2 POC VBG pO2 Mixed VBG HCO3 Sodium Potassium Chloride Carbon Dioxide Anion Gap BUN Creatinine Creat Clearance w eGFR POC Glucometer 212 Random Glucose Lactic Acid Calcium Total Bilirubin AST ALT Alkaline Phosphatase Troponin I Total Protein Albumin Urine Color Urine Appearance Urine pH Ur Specific [place] Urine Protein Urine Glucose (UA) Urine Ketones Urine Blood Urine Nitrite Urine Bilirubin Urine Urobilinogen Ur Leukocyte Esterase Urine RBC Urine WBC Ur Epithelial Cells Hyaline Casts Urine Mucus Influenza A (Rapid) Influenza B (Rapid) ASSESSMENT/PLAN:
--- NOTE | 2018-04-25 23:51 | HP ---
CHIEF COMPLAINT: Loss of consciousness PCP: Clem Sue MD HISTORY OF PRESENT ILLNESS: 68 year old male with a PMH significant for blindness, glaucoma, DM, HTN and HLD presented to the ED after an episode of unresponsiveness for several minutes at the breakfast table. The incident was witnessed by his daughter and his who saw his eyes rolling back in his head. who presents with diaphoresis and 2-3 min of LOC this morning while he was eating his breakfast. and daughter noted that he his eyes started rolling to the back of his head and was he unresponsive for several minutes. When EMS arrived glucose was in the 120s. He reports he has had similar episodes in the past every few months the most recent being 5 months ago and he was hospitalized for 1 week. Denies fevers, dizziness, congestion, cough SOB, n/v/d. Upon admission to the ED, one temperature was 95.1, BUN/CR 21/1.8, CXR and head CT unremarkable, EKG with inverted T-waves in V4-6. He was given IV APAP, 2 L NS and placed in a bear hugger. Vitals now stable, temp now 98.2. 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 Alcohol: Denies Drugs: Denies Allergies No Known Drug Allergies Allergy (Verified 04/25/18 12:48) HOME MEDICATIONS: Home Medications Medication Instructions Recorded Insulin (LOG) Aspart [NovoLOG -] 5 unit SQ ASDIR PRN 02/20/12 Insulin Glargine,Hum.rec.anlog 25 units SQ DAILY 02/20/12 [Lantus (10mL VIAL) -] Carvedilol 12.5 mg PO DAILY 12/02/14 Brimonidine Tartrate/Timolol 1 drop OD BID 05/16/17 [Combigan 0.2%-0.5% Eye Drops] Prednisolone 0.12% Ophthalmic 1 drop OS BID 05/16/17 [Pred Mild 0.12% -] Amlodipine Besylate 10 mg PO DAILY 02/16/18 Losartan Potassium 100 mg PO DAILY 02/16/18 Simvastatin 20 mg PO HS 02/16/18 REVIEW OF SYSTEMS CONSTITUTIONAL: Absent: fever, chills, diaphoresis, generalized weakness, malaise, loss of appetite, weight change HEENT: Absent: rhinorrhea, nasal congestion, throat pain, throat swelling, difficulty swallowing, mouth swelling, ear pain, eye pain, visual changes CARDIOVASCULAR: (+) syncope Absent: chest pain, palpitations, irregular heart rate, lightheadedness, peripheral edema RESPIRATORY: Absent: cough, shortness of breath, dyspnea with exertion, orthopnea, wheezing, stridor, hemoptysis GASTROINTESTINAL: Absent: abdominal pain, abdominal distension, nausea, vomiting, diarrhea, constipation, melena, hematochezia GENITOURINARY: Absent: dysuria, frequency, urgency, hesitancy, hematuria, flank pain, genital pain MUSCULOSKELETAL: Absent: myalgia, arthralgia, joint swelling, back pain, neck pain SKIN: Absent: rash, itching, pallor HEMATOLOGIC/IMMUNOLOGIC: Absent: easy bleeding, easy bruising, lymphadenopathy, frequent infections ENDOCRINE: Absent: unexplained weight gain, unexplained weight loss, heat intolerance, cold intolerance NEUROLOGIC: Absent: headache, focal weakness or paresthesias, dizziness, unsteady gait, seizure, mental status changes, bladder or bowel incontinence PSYCHIATRIC: Absent: anxiety, depression, suicidal or homicidal ideation, hallucinations. PHYSICAL EXAMINATION Vital Signs - 24 hr 04/25/18 04/25/18 04/25/18 12:47 13:35 13:40 Temperature 98.3 F 95.1 F L Pulse Rate 58 L Pulse Rate [ 73 Apical] Pulse Rate [ Left side Standing] Pulse Rate [ Right side Supine] Respiratory 18 18 Rate Blood Pressure 130/69 Blood Pressure [Left side Standing] Blood Pressure 121/71 [Right Arm] Blood Pressure [Right side Supine] O2 Sat by Pulse 100 100 Oximetry (%) 04/25/18 04/25/18 04/25/18 14:08 14:22 15:50 Temperature 98.5 F Pulse Rate Pulse Rate [ 69 75 Apical] Pulse Rate [ 86 Left side Standing] Pulse Rate [ 84 Right side Supine] Respiratory 18 18 Rate Blood Pressure Blood Pressure 122/81 [Left side Standing] Blood Pressure 122/73 110/64 [Right Arm] Blood Pressure 119/73 [Right side Supine] O2 Sat by Pulse 100 99 Oximetry (%) 04/25/18 04/25/18 04/25/18 17:05 17:08 20:17 Temperature 98.5 F 98.2 F Pulse Rate 79 70 Pulse Rate [ 79 Apical] Pulse Rate [ Left side Standing] Pulse Rate [ Right side Supine] Respiratory 18 18 18 Rate Blood Pressure 144/66 131/57 L Blood Pressure [Left side Standing] Blood Pressure 117/64 [Right Arm] Blood Pressure [Right side Supine] O2 Sat by Pulse 100 100 Oximetry (%) 04/25/18 20:25 Temperature Pulse Rate Pulse Rate [ Apical] Pulse Rate [ Left side Standing] Pulse Rate [ Right side Supine] Respiratory Rate Blood Pressure Blood Pressure [Left side Standing] Blood Pressure [Right Arm] Blood Pressure [Right side Supine] O2 Sat by Pulse 100 Oximetry (%) GENERAL: Awake, alert, and fully oriented, in no acute distress. HEAD: Normal with no signs of trauma. EYES: Left eye clouded cornea. EARS, NOSE, THROAT: Ears normal, nares patent, oropharynx clear without exudates. Moist mucous membranes. NECK: Normal range of motion, supple without lymphadenopathy, JVD, or masses. LUNGS: Breath sounds equal, clear to auscultation bilaterally. No wheezes, and no crackles. No accessory muscle use. HEART: Regular rate and rhythm, normal S1 and S2 without murmur, rub or gallop. ABDOMEN: Soft, nontender, not distended, normoactive bowel sounds, no guarding, no rebound, no masses. No hepatomegaly or splenomegaly. MUSCULOSKELETAL: Normal range of motion at all joints. No bony deformities or tenderness. No CVA tenderness. UPPER EXTREMITIES: 2+ pulses, warm, well-perfused. No cyanosis. No clubbing. No peripheral edema. LOWER EXTREMITIES: 2+ pulses, warm, well-perfused. No calf tenderness. No peripheral edema. NEUROLOGICAL: No facial droop, tongue midline. Normal speech. PSYCHIATRIC: Cooperative. Good eye contact. Appropriate mood and affect. SKIN: Warm, dry, normal turgor, no rashes or lesions noted, normal capillary refill. Laboratory Results - last 24 hr 04/25/18 04/25/18 04/25/18 13:30 13:30 13:30 WBC 6.8 RBC 4.28 Hgb 12.5 Hct 38.8 MCV 90.6 MCH 29.2 MCHC 32.3 RDW 13.2 Plt Count 250 D MPV 9.0 D Absolute Neuts (auto) 4.9 Neutrophils % 71.1 Lymphocytes % 20.5 D Monocytes % 8.1 Eosinophils % 0.1 Basophils % 0.2 PT with INR INR PTT (Actin FS) VBG pH POC VBG pCO2 POC VBG pO2 Mixed VBG HCO3 Sodium 136 Potassium 4.4 Chloride 102 Carbon Dioxide 25 Anion Gap 9 BUN 21 H Creatinine 1.8 H Creat Clearance w eGFR 37.60 POC Glucometer Random Glucose 160 H D Lactic Acid Calcium 9.3 Total Bilirubin 0.5 AST 19 ALT 16 Alkaline Phosphatase 92 Troponin I < 0.03 Total Protein 7.7 Albumin 3.9 Urine Color Urine Appearance Urine pH Ur Specific [place] Urine Protein Urine Glucose (UA) Urine Ketones Urine Blood Urine Nitrite Urine Bilirubin Urine Urobilinogen Ur Leukocyte Esterase Urine RBC Urine WBC Ur Epithelial Cells Hyaline Casts Urine Mucus Influenza A (Rapid) Influenza B (Rapid) 04/25/18 04/25/18 04/25/18 14:22 14:25 15:01 WBC RBC Hgb Hct MCV MCH MCHC RDW Plt Count MPV Absolute Neuts (auto) Neutrophils % Lymphocytes % Monocytes % Eosinophils % Basophils % PT with INR 13.5 H INR 1.21 PTT (Actin FS) 25.8 VBG pH POC VBG pCO2 POC VBG pO2 Mixed VBG HCO3 Sodium Potassium Chloride Carbon Dioxide Anion Gap BUN Creatinine Creat Clearance w eGFR POC Glucometer Random Glucose Lactic Acid Calcium Total Bilirubin AST ALT Alkaline Phosphatase Troponin I Total Protein Albumin Urine Color Yellow Urine Appearance Clear Urine pH 5.5 Ur Specific [place] >= 1.030 Urine Protein 2+ H Urine Glucose (UA) Negative Urine Ketones Trace Urine Blood Negative Urine Nitrite Negative Urine Bilirubin 1+ H Urine Urobilinogen 0.2 Ur Leukocyte Esterase Negative Urine RBC 0-2 Urine WBC 2-5 Ur Epithelial Cells Few Hyaline Casts 2-5 Urine Mucus 1+ Influenza A (Rapid) Negative Influenza B (Rapid) Negative 04/25/18 04/25/18 04/25/18 15:01 15:01 16:27 WBC RBC Hgb Hct MCV MCH MCHC RDW Plt Count MPV Absolute Neuts (auto) Neutrophils % Lymphocytes % Monocytes % Eosinophils % Basophils % PT with INR INR PTT (Actin FS) VBG pH 7.34 POC VBG pCO2 44.0 POC VBG pO2 40.9 Mixed VBG HCO3 23.0 Sodium Potassium Chloride Carbon Dioxide Anion Gap BUN Creatinine Creat Clearance w eGFR POC Glucometer [phone] Random Glucose Lactic Acid 1.7 Calcium Total Bilirubin AST ALT Alkaline Phosphatase Troponin I Total Protein Albumin Urine Color Urine Appearance Urine pH Ur Specific [place] Urine Protein Urine Glucose (UA) Urine Ketones Urine Blood Urine Nitrite Urine Bilirubin Urine Urobilinogen Ur Leukocyte Esterase Urine RBC Urine WBC Ur Epithelial Cells Hyaline Casts Urine Mucus Influenza A (Rapid) Influenza B (Rapid) 04/25/18 21:10 WBC RBC Hgb Hct MCV MCH MCHC RDW Plt Count MPV Absolute Neuts (auto) Neutrophils % Lymphocytes % Monocytes % Eosinophils % Basophils % PT with INR INR PTT (Actin FS) VBG pH POC VBG pCO2 POC VBG pO2 Mixed VBG HCO3 Sodium Potassium Chloride Carbon Dioxide Anion Gap BUN Creatinine Creat Clearance w eGFR POC Glucometer 212 Random Glucose Lactic Acid Calcium Total Bilirubin AST ALT Alkaline Phosphatase Troponin I Total Protein Albumin Urine Color Urine Appearance Urine pH Ur Specific [place] Urine Protein Urine Glucose (UA) Urine Ketones Urine Blood Urine Nitrite Urine Bilirubin Urine Urobilinogen Ur Leukocyte Esterase Urine RBC Urine WBC Ur Epithelial Cells Hyaline Casts Urine Mucus Influenza A (Rapid) Influenza B (Rapid) ASSESSMENT/PLAN: 68 year old male with a PMH significant for blindness, glaucoma, DM, HTN and HLD presented to the ED after an episode of unresponsiveness for several minutes at the breakfast table. Workup in the ED was largely negative. He was placed on overnight monitoring for continued monitoring. Loss of consciousness - Head CT negative - Cardiac monitoring - Echo and carotid doppler ordered - Consider cardiac consult - Blood and urine cultures pending - Fall precautions DM - Monitor finger stick glucose - SS with Novolog - Lantus 25 u SQ daily HTN - Well-controlled - Continue home medications: - Amlodipine Besylate 10 mg PO DAILY - Losartan Potassium 100 mg PO DAILY - Carvedilol 12.5 mg PO DAILY HLD - Continue Simvastatin 20 mg PO HS - LFTs WNL CKD - BUN/CR 30/05.8 - Baseline - Monitor BMP - Avoid nephrotoxic agents Glaucoma - Continue home drops: - Combigan 0.2%-0.5% 1 drop OD BID - Prednisolone 0.12% 1 drop OS BID FEN - PO intake adequate - Replete as needed - Diabetic, Na restricted diet Disp: If stable, may be appropriate for d/c tomorrow FULL CODE Visit type - Emergency Visit Emergency Visit: Yes ED Registration Date: 04/25/18 Care time: The patient presented to the Emergency Department on the above date and was hospitalized for further evaluation of their emergent condition. - New Patient This patient is new to me today: Yes Date on this admission: 04/26/18 - Critical Care Critical Care patient: No
[2018-04-26] MEDS ORDERED: INSULIN SLIDING SCALE (NOVOLOG) 1 VIAL SQ SCH (07:00)
[2018-04-26] MEDS ORDERED: INSULIN (LEVEMIR) 100 UNITS/ML UNITS SQ SCH (07:00)
[2018-04-26] MEDS: INSULIN SLIDING SCALE (NOVOLOG) 1 VIAL SQ SCH ×4 (07:03→21:04)
[2018-04-26 08:24] LABS: HEMATOCRIT 36.6 % (35.4-49); HEMOGLOBIN 12.1 GM/dl (11.7-16.9); MCH 29.5 pg (25.7-33.7); MCHC 32.9 g/dl (32.0-35.9); MEAN CELL VOLUME 89.7 fl (80-96); MEAN PLT VOLUME 9.3 fl (7.5-11.1); PLATELET COUNT 229 K/MM3 (134-434); RBC 4.08 M/mm3 (4.00-5.60); RDW 12.9 % (11.9-15.9); WHITE BLOOD COUNT 4.9 K/mm3 (4.0-10.8)
[2018-04-26 08:26] LABS: ANION GAP 8 MMOL/L (8-16); BLOOD UREA NITROGEN 15 mg/dl (7-18); CALCIUM 8.8 mg/dl (8.4-10.2); CHLORIDE 108 mmol/L (98-107); CO2 22 mmol/L (22-28); CREATININE 1.3 mg/dl (0.6-1.3); GLUCOSE,RANDOM 90 mg/dl (74-106); POTASSIUM 3.9 mmol/L (3.5-5.1); SODIUM 138 mmol/L (136-145)
[2018-04-26] MEDS: CARVEDILOL 12.5 MG TABLET (FP) PO SCH (09:05)
[2018-04-26] MEDS: LOSARTAN POTASSIUM 50 MG TABLET (FP) PO SCH (09:05)
[2018-04-26] MEDS: BRIMONIDINE TARTRATE 0.2% OPHTHALMIC 5 ML BOTTLE OD SCH ×2 (09:05→21:06)
[2018-04-26] MEDS: amLODIPine BESYLATE 10 MG TABLET (FP) PO SCH (09:05)
[2018-04-26] MEDS ORDERED: PATIENT'S OWN MEDICATION (NON-FORMULARY) (Brimonidine Tartrate/Timolol [Combigan 0.2%-0.5% OD SCH (10:00)
[2018-04-26] MEDS: prednisoLONE ACETATE 0.12% OPTH SUSP- 5 ML BOTTLE OS SCH ×2 (10:05→21:05)
[2018-04-26] MEDS: TIMOLOL 0.5% OPHTHALMIC SOL 5 ML BOTTLE OD SCH ×2 (10:35→21:05)
--- NOTE | 2018-04-26 14:19 | EKG ---
Test Reason : Blood Pressure : / mmHG Vent. Rate : 061 BPM Atrial Rate : 061 BPM P-R Int : 148 ms QRS Dur : 074 ms QT Int : 430 ms P-R-T Axes : 038 -08 -17 degrees QTc Int : 432 ms POOR DATA QUALITY, INTERPRETATION MAY BE ADVERSELY AFFECTED NORMAL SINUS RHYTHM MODERATE VOLTAGE CRITERIA FOR LVH, MAY BE NORMAL VARIANT T WAVE ABNORMALITY, CONSIDER LATERAL ISCHEMIA ABNORMAL ECG WHEN COMPARED WITH ECG OF 08-JAN-2018 15:04, NO SIGNIFICANT CHANGE WAS FOUND Confirmed by MD RANDI, RUY ([id number]) on 04/26/2018 2:19:01 PM Referred By: ALEN Confirmed By:RUY BRYAN MD
--- NOTE | 2018-04-26 15:12 | ECHO ---
Name: LEANN HIGGINS Exam:Adult Echocardiogram Study Date: 04/26/2018 01:29 PM Age: 68 yrs Reason For Study: SYNCOPE Height: 70 in Weight: 176 lb BSA: 2.0 m2 MMode/2D Measurements & Calculations IVSd: 1.3 cm Ao root diam: 2.6 cm LVIDd: 3.7 cm LA dimension: 3.3 cm LVIDs: 2.6 cm LVPWd: 1.2 cm EDV(Teich): 58.2 ml LVOT diam: 1.9 cm ESV(Teich): 23.6 ml Doppler Measurements & Calculations MV E max derrick: 86.4 cm/sec MV A max derrick: 114.2 cm/sec MV dec slope: 502.5 cm/sec2 MV E/A: 0.76 Ao V2 max: 231.0 cm/sec LV V1 max P.4 mmHg Ao max P.4 mmHg LV V1 mean P.4 mmHg Ao V2 mean: 170.1 cm/sec LV V1 max: 153.0 cm/sec Ao mean P.1 mmHg LV V1 mean: 94.7 cm/sec Ao V2 VTI: 53.6 cm LV V1 VTI: 32.8 cm LISE(I,D): 1.8 cm2 LISE(V,D): 2.0 cm2 SV(LVOT): 96.6 ml TR max derrick: 253.3 cm/sec TR max P.7 mmHg PI end-d derrick: 90.3 cm/sec Left Ventricle The left ventricle is normal in size. There is mild concentric left ventricular hypertrophy. Left aundrea tricular systolic function is normal. LVEF = 70%. Right Ventricle The right ventricle is normal in size and function. Atria The left atrium is mildly dilated. Right atrial size is normal. Mitral Valve There is mild mitral annular calcification. The mitral valve leaflets appear thickened, but open well . There is trace mitral regurgitation. Tricuspid Valve The tricuspid valve is not well visualized, but is grossly normal. There is trace tricuspid regurgita tion. Right ventricular systolic pressure is 30 mmhg. Aortic Valve There is moderate aortic sclerosis.;. Minimal aortic stenosis. The calculated aortic valve area using the continuity equation is 2.0 cm2. Aortic max pressure gradient= 21.4. Aortic mean pressure gradient= 13 .1. Trace aortic regurgitation. Pulmonic Valve The pulmonic valve is not well seen, but is grossly normal. Great Vessels The aortic root is not well visualized. Normal aortic arch, descending and ascending aorta. Pericardium/Pleura There is no pericardial effusion. Interpretation Summary There is mild concentric left ventricular hypertrophy. Left ventricular systolic function is normal. LVEF = 70%. The right ventricle is normal in size and function. The left atrium is mildly dilated. There is moderate aortic sclerosis.;Minimal aortic stenosis. LISE = 2.0 cm2. Aortic max pressure gradient= 21.4. Aortic mean pressure gradient= 13.1 There is mild mitral annular calcification. The mitral valve leaflets appear thickened, but open well . There is trace mitral regurgitation. MD Abigail Barraza 04/26/2018 03:11 PM
[2018-04-26] MEDS: SODIUM CHLORIDE 1,000 ML IV SCH (16:15)
--- NOTE | 2018-04-26 17:20 | PN ---
Physical Exam: SUBJECTIVE: Patient seen and examined sitting on edge of bed. present. OBJECTIVE: Vital Signs Period Temp Pulse Resp BP Sys/Ramirez Pulse Ox Last 24 Hr 98.2 F-99.1 F 70-88 16-22 117-192/57-78 98-100 GENERAL: The patient is awake, alert, and fully oriented, in no acute distress. HEAD: Normal with no signs of trauma. EYES: Clouded corneas ENT: Ears normal, nares patent, oropharynx clear without exudates, moist mucous membranes. NECK: Trachea midline, full range of motion, supple. LUNGS: Breath sounds equal, clear to auscultation bilaterally, no wheezes, no crackles, no accessory muscle use. HEART: Regular rate and rhythm, S1, S2 without murmur, rub or gallop. ABDOMEN: Soft, nontender, nondistended RIGHT HIP: well-healed surgical scar, no sign of infection EXTREMITIES: 2+ pulses, warm, well-perfused, no edema. NEUROLOGICAL: Cranial nerves II through XII grossly intact. Normal speech Laboratory Results - last 24 hr 04/25/18 04/25/18 04/25/18 14:25 15:01 15:01 WBC RBC Hgb Hct MCV MCH MCHC RDW Plt Count MPV VBG pH 7.34 POC VBG pCO2 44.0 POC VBG pO2 40.9 Mixed VBG HCO3 23.0 Sodium Potassium Chloride Carbon Dioxide Anion Gap BUN Creatinine Creat Clearance w eGFR POC Glucometer Random Glucose Lactic Acid 1.7 Calcium Influenza A (Rapid) Negative Influenza B (Rapid) Negative 04/25/18 04/25/18 04/26/18 16:27 21:10 06:46 WBC RBC Hgb Hct MCV MCH MCHC RDW Plt Count MPV VBG pH POC VBG pCO2 POC VBG pO2 Mixed VBG HCO3 Sodium Potassium Chloride Carbon Dioxide Anion Gap BUN Creatinine Creat Clearance w eGFR POC Glucometer [phone] 88 Random Glucose Lactic Acid Calcium Influenza A (Rapid) Influenza B (Rapid) 04/26/18 04/26/18 04/26/18 07:00 07:00 12:04 WBC 4.9 RBC 4.08 Hgb 12.1 Hct 36.6 MCV 89.7 MCH 29.5 MCHC 32.9 RDW 12.9 Plt Count 229 MPV 9.3 VBG pH POC VBG pCO2 POC VBG pO2 Mixed VBG HCO3 Sodium 138 Potassium 3.9 Chloride 108 H Carbon Dioxide 22 Anion Gap 8 BUN 15 Creatinine 1.3 Creat Clearance w eGFR 54.73 POC Glucometer 189 Random Glucose 90 D Lactic Acid Calcium 8.8 Influenza A (Rapid) Influenza B (Rapid) Active Medications Generic Name Dose Route Start Last Admin Trade Name Freq PRN Reason Stop Dose Admin Amlodipine Besylate 10 mg 04/26/18 10:00 04/26/18 09:05 Norvasc - PO 10 mg DAILY HAIR Administration Atorvastatin Calcium 10 mg 04/26/18 22:00 Lipitor - PO HS HAIR Brimonidine Tartrate 1 drop 04/26/18 10:00 04/26/18 09:05 Alphagan 0.2% - OD 1 drop BID HAIR Administration Carvedilol 12.5 mg 04/26/18 10:00 04/26/18 09:05 Coreg - PO 12.5 mg DAILY HAIR Administration Sodium Chloride 1,000 mls @ 100 mls/hr 04/25/18 16:15 04/25/18 16:21 Normal Saline - IV 100 mls/hr ASDIR HAIR Administration Insulin Aspart 1 vial 04/26/18 07:00 04/26/18 13:07 Novolog Vial Sliding Scale - SQ 2 unit ACHS HAIR Administration Protocol Insulin Detemir 25 units 04/26/18 07:00 Levemir Vial SQ DAILY@0700 HAIR Losartan Potassium 100 mg 04/26/18 10:00 04/26/18 09:05 Cozaar - PO 100 mg DAILY HAIR Administration Prednisolone Acetate 1 drop 04/26/18 10:00 04/26/18 10:05 Pred Mild 0.12% - OS 1 drop BID HAIR Administration Timolol Maleate 1 drop 04/26/18 10:00 04/26/18 10:35 Timoptic 0.5% OD 1 drop BID HAIR Administration ASSESSMENT/PLAN: 68 year-old male with a PMH significant for HTN, HLD, IDDM, legal blindness, glaucoma, right hip OA s/p right AHMET total hip arthroplasty 02/24/18. Placed on observation following a syncopal episode. Near Syncope --got up at 9:00am and took his three prescribed BP meds and his FS was 104; at 10:30 was eating breakfast and felt sweaty and had a feeling come over him like passing out but did not; his daughter who is a nurse did a fingerstick and it was 130; when EMS arrived, they noted BP was "low" --troponins neg x 2 --ECG shows TWI V3-V6, seen on previous ECGs --CXR unremarkable --Echo: mild concentric LVH, normal LV function, EF 70%; RV normal; LAE; trace MR; trace TR; minimal ; trace AI --12/2017 MIBI normal MPI, normal LVEF --CT head unremarkable --US carotids: minimal atherosclerotic disease, no hemodynamically significant stenosis --syncope likely attributable to drop in BP after taking three anti- hypertensives; will hold amlodipine in am, continue carvedilol and losartan --cardiology consult pending Hypertension Episode of hypotension --hold amlodipine --continue carvedilol and losartan IDDM --Levemir 25U daily --Novolog sliding scale coverage Hyperlipidemia - continue Lipitor Elevated creatinine --Cr 1.8 ~ baseline --IV fluids Glaucoma - Continue home eye drop regimen s/p Right total hip arthroplasty - 02/24/18 --surgical incision well-healed, no sign of infection FEN - NS@100mL/hr - Replete as needed - Diabetic, Na restricted diet Disp: continues to require observation. Full code. Visit type - Emergency Visit Emergency Visit: Yes ED Registration Date: 04/25/18 Care time: The patient presented to the Emergency Department on the above date and was hospitalized for further evaluation of their emergent condition. - New Patient This patient is new to me today: Yes Date on this admission: 04/27/18 - Critical Care Critical Care patient: No
[2018-04-26] MEDS ORDERED: INSULIN (NOVOLOG) ASPART 100 UNITS/ML 10ML VIAL ONE (17:49)
[2018-04-26] MEDS ORDERED: PT OWN MED DRAWER 7, Y5N ONE (20:55)
[2018-04-26] MEDS ORDERED: ATORVASTATIN CA 10 MG TABLET (FP) PO SCH ×2 (22:00)
[2018-04-27] MEDS: INSULIN SLIDING SCALE (NOVOLOG) 1 VIAL SQ SCH ×3 (06:36→17:48)
[2018-04-27] MEDS ORDERED: PT OWN MED DRAWER 7, Y5N ONE ×2 (09:33→18:51)
[2018-04-27] MEDS: CARVEDILOL 12.5 MG TABLET (FP) PO SCH (09:36)
[2018-04-27] MEDS: LOSARTAN POTASSIUM 50 MG TABLET (FP) PO SCH (09:36)
[2018-04-27] MEDS: BRIMONIDINE TARTRATE 0.2% OPHTHALMIC 5 ML BOTTLE OD SCH (09:36)
[2018-04-27] MEDS: amLODIPine BESYLATE 10 MG TABLET (FP) PO SCH (09:37)
[2018-04-27] MEDS: TIMOLOL 0.5% OPHTHALMIC SOL 5 ML BOTTLE OD SCH (09:37)
[2018-04-27] MEDS: prednisoLONE ACETATE 0.12% OPTH SUSP- 5 ML BOTTLE OS SCH (09:39)
--- NOTE | 2018-04-27 13:23 | DS ---
Physical Exam: SUBJECTIVE: Patient seen and examined oob to chair. No further episodes of lightheadedness. OBJECTIVE: Vital Signs Period Temp Pulse Resp BP Sys/Ramirez Pulse Ox Last 24 Hr 97.7 F-99.2 F 72-83 16-22 119-170/57-80 95-100 PHYSICAL EXAM GENERAL: The patient is awake, alert, and fully oriented, in no acute distress. HEAD: Normal with no signs of trauma. EYES: Clouded corneas ENT: Ears normal, nares patent, oropharynx clear without exudates, moist mucous membranes. NECK: Trachea midline, full range of motion, supple. LUNGS: Breath sounds equal, clear to auscultation bilaterally, no wheezes, no crackles, no accessory muscle use. HEART: Regular rate and rhythm, S1, S2 without murmur, rub or gallop. ABDOMEN: Soft, nontender, nondistended RIGHT HIP: well-healed surgical scar, no sign of infection EXTREMITIES: 2+ pulses, warm, well-perfused, no edema. NEUROLOGICAL: Cranial nerves II through XII grossly intact. Normal speech LABS CBCD WBC 4.9 K/mm3 (4.0-10.8) 04/26/18 07:00 RBC 4.08 M/mm3 (4.00-5.60) 04/26/18 07:00 Hgb 12.1 GM/dl (11.7-16.9) 04/26/18 07:00 Hct 36.6 % (35.4-49) 04/26/18 07:00 MCV 89.7 fl (80-96) 04/26/18 07:00 MCHC 32.9 g/dl (32.0-35.9) 04/26/18 07:00 RDW 12.9 % (11.9-15.9) 04/26/18 07:00 Plt Count 229 K/MM3 (134-434) 04/26/18 07:00 MPV 9.3 fl (7.5-11.1) 04/26/18 07:00 CMP Sodium 138 mmol/L (136-145) 04/26/18 07:00 Potassium 3.9 mmol/L (3.5-5.1) 04/26/18 07:00 Chloride 108 mmol/L (98-107) H 04/26/18 07:00 Carbon Dioxide 22 mmol/L (22-28) 04/26/18 07:00 Anion Gap 8 MMOL/L (8-16) 04/26/18 07:00 BUN 15 mg/dl (7-18) 04/26/18 07:00 Creatinine 1.3 mg/dl (0.6-1.3) 04/26/18 07:00 Creat Clearance w eGFR 54.73 (>60) 04/26/18 07:00 Calcium 8.8 mg/dl (8.4-10.2) 04/26/18 07:00 Total Bilirubin 0.5 mg/dl (0.2-1.0) 04/25/18 13:30 AST 19 U/L (10-42) 04/25/18 13:30 ALT 16 U/L (10-40) 04/25/18 13:30 Alkaline Phosphatase 92 U/L (32-92) 04/25/18 13:30 Total Protein 7.7 g/dl (6.4-8.3) 04/25/18 13:30 Albumin 3.9 g/dl (3.5-5.0) 04/25/18 13:30 Laboratory Results - last 24 hr 04/26/18 04/26/18 04/26/18 15:56 16:49 20:44 POC Glucometer 166 241 Troponin I < 0.03 04/27/18 04/27/18 06:24 12:14 POC Glucometer 131 193 Troponin I HOSPITAL COURSE: Date of Admission:04/25/18 Date of Discharge: 04/27/18 Pre hospital course 68 year-old male with a PMH significant for HTN, HLD, IDDM, legal blindness, glaucoma, right hip OA s/p right AHMET total hip arthroplasty 02/24/18. Placed on observation following a syncopal episode. Got up at 9:00am and took his three prescribed BP meds and his FS was 104; at 10:30 was eating breakfast and felt sweaty and had a feeling come over him like passing out but did not; his daughter who is a nurse did a fingerstick and it was 130; when EMS arrived, they noted BP was "low." Hospital course by problem list Near Syncope --no further episodes --troponins neg x 2 --ECG shows TWI V3-V6, seen on previous ECGs --CXR unremarkable --Echo: mild concentric LVH, normal LV function, EF 70%; RV normal; LAE; trace MR; trace TR; minimal ; trace AI --12/2017 MIBI normal MPI, normal LVEF --CT head unremarkable --US carotids: minimal atherosclerotic disease, no hemodynamically significant stenosis --syncope likely attributable to drop in BP after taking three anti- hypertensives --seen and evaluated by cardiology, agree to hold amlodipine, contnue losartan and carvedilol, outpatient followup 1-2 weeks Hypertension Episode of hypotension --BP has been stable IDDM --Levemir 25U daily --Novolog sliding scale coverage Hyperlipidemia - continued Lipitor Elevated creatinine --Cr 1.8 on admission, 1.3 at time of discharge Glaucoma - Continue home eye drop regimen s/p Right total hip arthroplasty - 02/24/18 --surgical incision well-healed, no sign of infection Minutes to complete discharge: 35 Discharge Summary Reason For Visit: DX SYNCOPE, HYPOTHERMIA Current Active Problems Hypothermia (Acute) Syncope (Acute) Condition: Improved - Instructions Diet, Activity, Other Instructions: You are being discharged today after having been observed in the hospital following a syncopal episode. One of the likely causes of your syncope was low blood pressure. STOP taking amlodipine, but continue to take your other blood pressure medications. It is important that you follow up with your technical administrative assistant, Dr. Reid, within 1-2 weeks of your discharge to have your blood pressure checked and to have your medications reviewed. Remember to stay well-hydrated. Return to the emergency department for any new or worsening symptoms. Referrals: Edna Reid MD [Staff Physician] - 2 Weeks Clem Sue MD [Primary Care Provider] - Disposition: HOME - Home Medications Comprehensive Discharge Medication List: Ambulatory Orders Insulin (LOG) Aspart [NovoLOG -] 5 unit SQ ASDIR PRN 02/20/12 Insulin Glargine,Hum.rec.anlog [Lantus (10mL VIAL) -] 25 units SQ DAILY Carvedilol 12.5 mg PO DAILY 12/02/14 Brimonidine Tartrate/Timolol [Combigan 0.2%-0.5% Eye Drops] 1 drop OD BID Prednisolone 0.12% Ophthalmic [Pred Mild 0.12% -] 1 drop OS BID 05/16/17 Amlodipine Besylate 10 mg PO DAILY 02/16/18 Losartan Potassium 100 mg PO DAILY 02/16/18 Simvastatin 20 mg PO HS 02/16/18 This patient is new to me today: No Emergency Visit: Yes ED Registration Date: 04/25/18 Care time: The patient presented to the Emergency Department on the above date and was hospitalized for further evaluation of their emergent condition. Critical Care patient: No - Discharge Referral Referred to [facility] No
[2018-04-27 14:01] VITALS: BP 119/54; PULSE 70; TEMP 98.2
--- NOTE | 2018-04-27 16:27 | CON.CARD ---
Cardiology Consult (text) - Consultation Consultation Note: cc: syncope hpi: 68 m hx dm, htn, hld, here with syncope. Yesterday AM was sitting eating in breakfast and passed out at table for few minutes. EMS arrived and FSG nl but bp was low. Pt had no prodrome sxs. No cp sob palps dizzy pnd orthopnea le edema. Feels well now. Sees dr yadav for cardio. pmh: per hpi psh: hip surgery social: ex tob fam: no premature cad, scd ros: per hpi; no nvd fever cough waller abd pain gib hematuria dysuria meds: Home Medications Medication Instructions Recorded Insulin (LOG) Aspart [NovoLOG -] 5 unit SQ ASDIR PRN 02/20/12 Insulin Glargine,Hum.rec.anlog 25 units SQ DAILY 02/20/12 [Lantus (10mL VIAL) -] Carvedilol 12.5 mg PO DAILY 12/02/14 Brimonidine Tartrate/Timolol 1 drop OD BID 05/16/17 [Combigan 0.2%-0.5% Eye Drops] Prednisolone 0.12% Ophthalmic 1 drop OS BID 05/16/17 [Pred Mild 0.12% -] Amlodipine Besylate 10 mg PO DAILY 02/16/18 Losartan Potassium 100 mg PO DAILY 02/16/18 Simvastatin 20 mg PO HS 02/16/18 pe: Vital Signs Period Temp Pulse Resp BP Sys/Ramirez Pulse Ox Last 24 Hr 97.7 F-99.2 F 70-83 16-20 119-170/54-80 96-100 nad no jvd rrr s1s2 no mrg cta bl nl eff aaox3 no le e/c/c abd nd nd pos bs no jaundice diaphoresis pos dp pt no carotid bruits Laboratory Last Values WBC 4.9 K/mm3 (4.0-10.8) 04/26/18 07:00 RBC 4.08 M/mm3 (4.00-5.60) 04/26/18 07:00 Hgb 12.1 GM/dl (11.7-16.9) 04/26/18 07:00 Hct 36.6 % (35.4-49) 04/26/18 07:00 MCV 89.7 fl (80-96) 04/26/18 07:00 MCH 29.5 pg (25.7-33.7) 04/26/18 07:00 MCHC 32.9 g/dl (32.0-35.9) 04/26/18 07:00 RDW 12.9 % (11.9-15.9) 04/26/18 07:00 Plt Count 229 K/MM3 (134-434) 04/26/18 07:00 MPV 9.3 fl (7.5-11.1) 04/26/18 07:00 Absolute Neuts (auto) 4.9 K/mm3 04/25/18 13:30 Neutrophils % 71.1 % (42.8-82.8) 04/25/18 13:30 Lymphocytes % 20.5 % (8-40) D 04/25/18 13:30 Monocytes % 8.1 % (3.8-10.2) 04/25/18 13:30 Eosinophils % 0.1 % (0-4.5) 04/25/18 13:30 Basophils % 0.2 % (0-2.0) 04/25/18 13:30 PT with INR 13.5 SEC (10.2-13.0) H 04/25/18 15:01 INR 1.21 (0.82-1.09) 04/25/18 15:01 PTT (Actin FS) 25.8 SECONDS (25.2-36.5) 04/25/18 15:01 VBG pH 7.34 (7.32-7.42) 04/25/18 15:01 POC VBG pCO2 44.0 mmHg (38-52) 04/25/18 15:01 POC VBG pO2 40.9 mmHg (28-48) 04/25/18 15:01 Mixed VBG HCO3 23.0 meq/L (19-25) 04/25/18 15:01 Sodium 138 mmol/L (136-145) 04/26/18 07:00 Potassium 3.9 mmol/L (3.5-5.1) 04/26/18 07:00 Chloride 108 mmol/L (98-107) H 04/26/18 07:00 Carbon Dioxide 22 mmol/L (22-28) 04/26/18 07:00 Anion Gap 8 MMOL/L (8-16) 04/26/18 07:00 BUN 15 mg/dl (7-18) 04/26/18 07:00 Creatinine 1.3 mg/dl (0.6-1.3) 04/26/18 07:00 Creat Clearance w eGFR 54.73 (>60) 04/26/18 07:00 POC Glucometer 193 UNITS (80-120) 04/27/18 12:14 Random Glucose 90 mg/dl (74-106) D 04/26/18 07:00 Lactic Acid 1.7 mmol/L (0.4-2.0) 04/25/18 15:01 Calcium 8.8 mg/dl (8.4-10.2) 04/26/18 07:00 Total Bilirubin 0.5 mg/dl (0.2-1.0) 04/25/18 13:30 AST 19 U/L (10-42) 04/25/18 13:30 ALT 16 U/L (10-40) 04/25/18 13:30 Alkaline Phosphatase 92 U/L (32-92) 04/25/18 13:30 Troponin I < 0.03 ng/ml (0.00-0.06) 04/26/18 15:56 Total Protein 7.7 g/dl (6.4-8.3) 04/25/18 13:30 Albumin 3.9 g/dl (3.5-5.0) 04/25/18 13:30 Urine Color Yellow 04/25/18 14:22 Urine Appearance Clear 04/25/18 14:22 Urine pH 5.5 (4.5-8) 04/25/18 14:22 Ur Specific [place] >= 1.030 (1.010-1.035) 04/25/18 14:22 Urine Protein 2+ (NEGATIVE) H 04/25/18 14:22 Urine Glucose (UA) Negative (NEGATIVE) 04/25/18 14:22 Urine Ketones Trace (NEGATIVE) 04/25/18 14:22 Urine Blood Negative (NEGATIVE) 04/25/18 14:22 Urine Nitrite Negative (NEGATIVE) 04/25/18 14:22 Urine Bilirubin 1+ (NEGATIVE) H 04/25/18 14:22 Urine Urobilinogen 0.2 (0.2-1.0) 04/25/18 14:22 Ur Leukocyte Esterase Negative (NEGATIVE) 04/25/18 14:22 Urine RBC 0-2 /hpf (0-3) 04/25/18 14:22 Urine WBC 2-5 (0-2) 04/25/18 14:22 Ur Epithelial Cells Few /HPF 04/25/18 14:22 Hyaline Casts 2-5 /lpf 04/25/18 14:22 Urine Mucus 1+ 04/25/18 14:22 Influenza A (Rapid) Negative 04/25/18 14:25 Influenza B (Rapid) Negative 04/25/18 14:25 cxr: clear lungs ecg: sr, nl intervals, nonspec twchanges, no st changes echo 04/2018: lvh, nl lv/rv, mild lae, nl rvsp, no sig valve path carotids 04/2018: minimal dz, no sig stenosis mibi 12/2017: nl mpi, nl lvef tele: sr a/p: 68 m hx dm, htn, hld, here with syncope. syncope: -likely vasovagal due to low bp 2/2 dehydration/htn meds -echo, carotids unremarkable -no signs chf, acs, arrhythmias. -feels better now, brianne improved after ivfs -agree with holding norvasc for now and monitoring bp as outpt 1-2 weeks htn: -plan as above, cont coreg and cozaar hld: -cont statin brianne -cr improved with ivfs
[2018-04-27] MEDS: SODIUM CHLORIDE 1,000 ML IV SCH (17:48)
== END 2018-04-27 18:40 | disposition home or self-care (01) ==
LOC: SUPCPDRO 12:46 → FER 12:46 → FM/S 17:05
PROVIDERS: ADMIT Internal Medicine; ATTEND Nurse Practitioner Acute Care
PROC: 3E033NZ Introduction of Analgesics, Hypnotics, Sedatives into Peripheral Vein, Percutaneous Approach (ICD-10-PCS; principal; 2018-04-25)
PROC: 3E0337Z Introduction of Electrolytic and Water Balance Substance into Peripheral Vein, Percutaneous Approach (ICD-10-PCS; 2018-04-25)
PROC: 3E013VG Introduction of Insulin into Subcutaneous Tissue, Percutaneous Approach (ICD-10-PCS; 2018-04-25)
DX: R55 Syncope and collapse (principal); R68.0 Hypothermia, not associated with low environmental temperature; E11.22 Type 2 diabetes mellitus with diabetic chronic kidney disease; I12.9 Hypertensive chronic kidney disease with stage 1 through stage 4 chronic kidney disease, or unspecified chronic kidney disease; N18.9 Chronic kidney disease, unspecified; Z79.4 Long term (current) use of insulin; E78.5 Hyperlipidemia, unspecified; H54.7 Unspecified visual loss; H40.9 Unspecified glaucoma; N40.0 Benign prostatic hyperplasia without lower urinary tract symptoms; R79.89 Other specified abnormal findings of blood chemistry; I95.9 Hypotension, unspecified
CPT/HCPCS: 36415; 70450-TC; 71045-TC-FY; 80048; 80053; 81003; 81015; 82803; 82962; 83605; 84484; 85025; 85027; 85610; 85730; 87040; 87086; 87804; 93005; 93306-TC; 93880-TC; 99285-25; G0378; J0131; J7030

== ENCOUNTER 2018-05-05 17:04 | Observation (INO) | payer OTHER ==
--- NOTE | 2018-05-05 17:07 | PDOC ---
History of Present Illness - General Chief Complaint: Weakness Stated Complaint: WEAKNESS & PERSPIRING Time Seen by Provider: 05/05/18 17:07 History Source: Patient Exam Limitations: No Limitations - History of Present Illness Initial Comments: Pt is a 68 yo M, with PMH of HTN, HLD, b/l blindness (2/2 glaucoma), DM, who is presenting after a syncopal episode. Pt is accompanied by his children and . 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 There was no generalized shaking or incontinence. Pt was confused for a few minutes after, speaking in his [place] language. His son gave him some orange juice and the pt became more oriented over the next few minutes. The pt did not fall out of the barbers chair and has no recent head trauma. The pt took his BG this AM and was 115, so he skipped his AM novolog with breakfast. Pt denies any recent fevers/chills, headache, chest pain, palpitations, SOB, nausea/vomiting, abdominal pain, urinary symptoms, diarrhea/constipation, or leg swelling. Pt has had multiple recent admissions for similar syncopal episodes. Negative work-up in recent admissions includes negative head CT scan, negative chest x- ray, carotid doppler without stenosis. Echo 12/2017 showed preserved ejection fraction (69%). PCP/Endocrine: Dr. Sue Cards: Dr. Reid Social: Pt denies any cigarette, alcohol, or drug use. Pt denies any recent travel or sick contacts. Surgical: L hip replacement Family: no relevant history 05/05/18 18:32 Past History - Past Medical History Allergies/Adverse Reactions: Allergies Allergy/AdvReac Type Severity Reaction Status Date / Time No Known Drug Allergies Allergy Verified 05/05/18 17:21 Home Medications: Ambulatory Orders Insulin (LOG) Aspart [NovoLOG -] 5 unit SQ ASDIR PRN 02/20/12 Insulin Glargine,Hum.rec.anlog [Lantus (10mL VIAL) -] 25 units SQ DAILY Carvedilol 12.5 mg PO DAILY 12/02/14 Brimonidine Tartrate/Timolol [Combigan 0.2%-0.5% Eye Drops] 1 drop OD BID Prednisolone 0.12% Ophthalmic [Pred Mild 0.12% -] 1 drop OS BID 05/16/17 Losartan Potassium 100 mg PO DAILY 02/16/18 Simvastatin 20 mg PO HS 02/16/18 Anemia: No Asthma: No Cancer: No (DENIES PROSTATE CA BUT HAD REMOVED 2010) Cardiac Disorders: No CVA: No COPD: No CHF: No Dementia: No Diabetes: Yes (2013 SYNCOPAL EPISODES IN 2016) GI Disorders: No Disorders: Yes (ENLARGED PROSTATE) HTN: Yes Hypercholesterolemia: Yes Liver Disease: No Seizures: No Thyroid Disease: No - Surgical History Abdominal Surgery: No Appendectomy: No Cardiac Surgery: No Cholecystectomy: No Lung Surgery: No Neurologic Surgery: No Orthopedic Surgery: Yes (right hip 2018) - Immunization History Td Vaccination: Yes Immunization Up to Date: Yes - Suicide/Smoking/Psychosocial Hx Smoking Status: No Smoking History: Never smoked Have you smoked in the past 12 months: No Number of Cigarettes Smoked Daily: 0 Hx Alcohol Use: No Drug/Substance Use Hx: No Substance Use Type: None Hx Substance Use Treatment: No Review of Systems - Review of Systems Able to Perform ROS?: Yes Is the patient limited Danish proficient: No Constitutional: Yes: Weight Stable. No: Chills, Diaphoresis, Fever, Loss of Appetite, Weakness HEENTM: Yes: See HPI, Other (blindness b/l from glaucoma). No: Recent change in vision, Double Vision, Nose Congestion, Hearing Loss, Throat Pain, Difficulty Swallowing Respiratory: No: Cough, Orthopnea, Shortness of Breath Cardiac (ROS): Yes: Syncope. No: Chest Pain, Edema, Irregular Heart Rate, Lightheadedness, Palpitations, Chest Tightness ABD/GI: No: Constipated, Diarrhea, Nausea, Poor Appetite, Poor Fluid Intake, Rectal Bleeding, Vomiting, Indigestion, Abdominal cramping : No: Burning, Dysuria, Frequency, Hematuria, Incontinence, Pain, Urgency Musculoskeletal: No: Back Pain, Joint Pain, Muscle Pain, Muscle Weakness Integumentary: No: Rash Neurological: Yes: See HPI, Other (multiple syncopal episodes over past few months). No: Headache, Numbness, Pre-Existing Deficit, Seizure, Weakness, Unsteady Gait, Ataxia, Dizziness Psychiatric: No: Sleep Pattern Change, Change in Appetite Endocrine: No: Increased Urine, Change in Weight Hematologic/Lymphatic: No: Anemia, Blood Clots, Easy Bleeding, Easy Bruising All Other Systems: Reviewed and Negative *Physical Exam - Physical Exam General Appearance: Yes: Nourished, Appropriately Dressed. No: Apparent Distress HEENT: positive: EOMI, OUSMANE, Normal ENT Inspection, Normal Voice, TMs Normal, Pharynx Normal, Hearing Grossly Normal. negative: Scleral Icterus (R), Scleral Icterus (L), Pharyngeal Erythema, Tonsillar Exudate, Tonsillar Erythema, Nasal Congestion, Rhinorrhea, Sinus Tenderness, TM Bulging, TM Dull, TM Erythema Neck: positive: Trachea midline, Normal Thyroid, Supple. negative: Tender, Rigid, Decreased range of motion, Lymphadenopathy (R), Lymphadenopathy (L), Rigidity Respiratory/Chest: positive: Lungs Clear, Normal Breath Sounds. negative: Chest Tender, Respiratory Distress, Accessory Muscle Use, Crackles, Wheezing Cardiovascular: positive: Regular Rhythm, Regular Rate, S1, S2. negative: Edema , JVD, Murmur Vascular Pulses: Carotid (R): 4+, Carotid (L): 4+ Gastrointestinal/Abdominal: positive: Normal Bowel Sounds, Flat, Soft. negative : Tender, Organomegaly, Pulsatile Mass, Distended, Guarding, Rebound Rectal Exam: positive: deferred Lymphatic: negative: Adenopathy, Tenderness Musculoskeletal: positive: Normal Inspection. negative: CVA Tenderness Extremity: positive: Normal Capillary Refill, Normal Inspection, Normal Range of Motion, Pelvis Stable. negative: Tender, Pedal Edema Integumentary: positive: Normal Color, Dry, Warm. negative: Jaundice, Clammy, Diaphoresis, Rash Neurologic: positive: fruit bar maker II-XII NML intact (unable to test vision/eye case due to blindness), Fully Oriented, Alert, Normal Mood/Affect, Normal Response, Motor Strength 5/5. negative: EOM Palsy, Facial Droop, Numbness, Sensory Deficit, Finger to Nose Heart Score/ECG Review - History History: Slightly suspicious - Electrocardiogram EKG: Normal - Age Age: >/= 65 - Risk Factors Risk Factors Heart Score: Yes Hx Hypercholesterolemia, Yes Hx Hypertension, Yes Hx Diabetes Based on the list above the patient has:: >/=3 risk factors or Hx atherosclerotic disease - Troponin Troponin: </= normal limit - Score Heart Score - Total: 4 ED Treatment Course - LABORATORY CBC & Chemistry Diagram: 05/05/18 18:01 05/05/18 18:01 Medical Decision Making - Medical Decision Making Pt was seen at bedside, also will be seen by attending Dr. Garcia. Pt presenting after a syncopal episode. Pt is accompanied by his children and . 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 There was no generalized shaking or incontinence. Pt was confused for a few minutes after, speaking in his [place] language. His son gave him some orange juice and the pt became more oriented over the next few minutes. The pt took his BG this AM and was 115, so he skipped his AM novolog with breakfast. Pt denies any recent fevers/chills, headache, chest pain, palpitations, SOB, nausea/vomiting, abdominal pain, urinary symptoms, diarrhea/constipation, or leg swelling. PE showed stable vital signs, no orthostatic hypotension when tested. Heart and lung sounds clear. fruit bar maker generally intact (pt blind from glaucoma). No b/l pedal edema. Mildly decreased skin turgor in the hands. Considering syncopal episode (orthostatic, vasovagal, hypovolemia) vs seizures vs Ordered work-up including [labs] and [imaging]. Provided 1 L IV NS for improvement of dehydration. Will continue to reassess pt and monitor for symptomatic improvement. 05/05/18 17:50 ECG: HR 66, intervals WNL. TWIs in lateral leads, no significant changes or ST segment elevations/depressions seen from last ECG done 04/2018. Called Neurology (Dr. Resendiz) -- agreed that pt likely needs work-up including MRA, EEG. No EEG available at [place], but agreed to see pt tomorrow and will follow the case. Called Cardiology (Dr Martinez/Jeanette) -- agrees that overnight telemetry is reasonable to watch the pt for arrhythmia -- likely needs outpatient monitoring as well. Will follow the case. Consult orders placed. Labs sent and pending. 05/05/18 18:10 CBC and CMP generally WNL. Glucose 245, likely due to pt skipping his novolog this AM. Pt has IVF running now. Trop <.03, Mg and Phos WNL. UA negative for infection, trace ketones. Hospitalist team paged for admission. 05/05/18 18:47 Decision to admit order placed. Pt lying comfortably with stable vitals. Will re-check BGM to determine need for insulin after fluids are given. Pt signed out to night team. Pending admission and pt to go upstairs. 05/05/18 18:57 *DC/Admit/Observation/Transfer Diagnosis at time of Disposition: FILIBERTO (acute kidney injury) Syncope Qualifiers: Syncope type: unspecified Qualified Code(s): R55 - Syncope and collapse - Discharge Dispostion Condition at time of disposition: Stable Decision to Admit order: Yes - Referrals Referrals: Clem Sue MD [Primary Care Provider] - - Patient Instructions - Post Discharge Activity Forms/Work/School Notes: Parent(s) Back to Work Note
[2018-05-05] MEDS ORDERED: SODIUM CHLORIDE 1,000 ML IV STA (17:24)
--- NOTE | 2018-05-05 17:43 | PDOC ---
Attending Attestation - Resident Resident Name: Myriam Caceres - ED Attending Attestation I have performed the following: I have examined & evaluated the patient, The case was reviewed & discussed with the resident, I agree w/resident's findings & plan, Exceptions are as noted - HPI HPI: 05/05/18 17:39 68 yo male h/o DM HTN blindness, h/o frequent syncope here today with syncopal episode while sitting at the [employer]. pt family provides history states his eyes rolled back and was briefly unconscious. was confused for few minutes following. did have some slight shaking at time of episode. now at baseline. has had syncope in the past which was associated with episodes of hypoglycemia. pt was admitted to hospital 10 days ago for same, bp meds were lowered for concerns of overmedication. follows with a dry wall plasterer. dr. Jacinto, whom he did see following his discharge from hospital within last 10 days. prior syncope workup has included echo, carotid dopplers and ct head all unremarkable. 05/05/18 18:15 - Physicial Exam PE: 05/05/18 18:14 awake alert eyes with cloudy iris ( chronic blindness/ cataract glaucoma). facies symmetric lungs clear bilaterally heart rrr no mrg abd soft nt nd. no pulsatile mass. ext wwp. no edema. symmetric dp/ radial pulses. nuero strength 5 /5 all four ext. speech clear. sensation intact. skin warm and dry no rash. - Medical Decision Making 05/05/18 17:41 differential anemia, dehydration, hypoglycemia, seizure possible although most likely due to vasovagal from going to bathroom. other possibility includes dysrhtymia. plan labs ekg trpo cxr . pt did not hit head today. recent ct scan, no reason to repeat today. will try to get a hold of pt dry wall plasterer to help coordinate care and followup. 05/05/18 18:16 d/w dr leanna winterslogist will see in hosptial. d/w dry wall plasterer dr sales covering for karishma, recommend tele observation. 05/05/18 18:53 hospitalist paged for admission to tele obs, pt pcp is dr olivas, awaiting call back. Heart Score/ECG Review #1 General ECG Interpretation: Sinus Rhythm, Normal Rate (66), Normal Intervals, No acute ischemic changes ( t wave inversion v4 - v5) Compared to previous ECG there are: No significant change (comparison 04/26)
[2018-05-05 18:25] LABS: BASO % 1.1 % (0-2.0); EOS % 0.4 % (0-4.5); HEMATOCRIT 38.8 % (35.4-49); HEMOGLOBIN 12.6 GM/dl (11.7-16.9); LYMPH % 29.3 % (8-40); MCH 29.3 pg (25.7-33.7); MCHC 32.5 g/dl (32.0-35.9); MEAN CELL VOLUME 90.1 fl (80-96); MEAN PLT VOLUME 9.4 fl (7.5-11.1); MONO % 11.9 % (3.8-10.2); NEUT % 57.3 % (42.8-82.8); PLATELET COUNT 225 K/MM3 (134-434)
[2018-05-05 18:32] LABS: INR 1.16 (0.82-1.09)
[2018-05-05 18:37] LABS: ALBUMIN 3.8 g/dl (3.5-5.0); ALK PHOS 94 U/L (32-92); ANION GAP 4 MMOL/L (8-16); BILIRUBIN,TOTAL 0.4 mg/dl (0.2-1.0); BLOOD UREA NITROGEN 24 mg/dl (7-18); CALCIUM 9.3 mg/dl (8.4-10.2); CHLORIDE 102 mmol/L (98-107); CO2 26 mmol/L (22-28); GLUCOSE,RANDOM 245 mg/dl (74-106); PHOSPHOROUS 3.1 mg/dl (2.5-4.6); POTASSIUM 4.5 mmol/L (3.5-5.1); SGOT/AST 24 U/L (10-42); SGPT/ALT 19 U/L (10-40); SODIUM 132 mmol/L (136-145); TOT PROT 7.4 g/dl (6.4-8.3)
[2018-05-05 18:40] LABS: PH,URINE 5.5 (4.5-8); URINE APPEARANCE Clear; URINE BILIRUBIN 1+ (NEGATIVE); URINE COLOR Yellow; URINE GLUCOSE (UA) Trace (NEGATIVE); URINE KETONE Trace (NEGATIVE); URINE LEUK ESTERASE Negative (NEGATIVE); URINE NITRITE Negative (NEGATIVE); URINE PROTEIN 1+ (NEGATIVE); URINE UROBILINOGEN 0.2 (0.2-1.0)
[2018-05-05] MEDS ORDERED: HEMOQUE TEST 1 EACH EACH ONE (18:55)
[2018-05-05 18:57] LABS: URINE BACTERIA 1+ /hpf (NEGATIVE); URINE RBC 0-2 /hpf (0-3)
--- NOTE | 2018-05-05 20:24 | HP ---
Admitting History and Physical - Primary Care Physician PCP: Clem Sue - Admission Chief Complaint: Syncope History of Present Illness: This is a 68 y/o man with a past medical history Hypertension, Hyperlipidemia, Diabetes Mellitus, Chronic Blindness, Cataract, Glaucoma, recent admission 04/25 -04/27 for Syncope, Hypothermia. Who presents to the ED with his son for Syncope. Per the son who was at bedside, reports that while is father was sitting in the [employer] chair he became ashen and unresponsive for 1-2 mins. Patient has no memory recall of the event. The son denies head trauma or loss of bowel or bladder incontinence. The son reports that the patient's BS this am was 119. He reports that the patient had a PT appointment before going to the [employer] without incident. Patient and son denies fever, chills, KATZ, SOB, CP , palpitations, AP, N/V/D, constipation, melena, hematochezia, hematuria, dysuria. History Source: Patient, Family Member, Medical Record Limitations to Obtaining History: Physical Impairment (visual) - Past Medical History PATIENT SAFETY OFFICER: Yes: Syncope (many epiosdes in past in setting of hypoglycemia), Other Cardiovascular: Yes: HTN, Hyperlipdemia ENT: Yes: Other (Glaucoma) Endocrine: Yes: Diabetes Mellitus (insulin requiring) - Past Surgical History Past Surgical History: Yes: Joint Replacement Additional Past Surgical History: Multiple eye surgeries - Smoking History Smoking history: Never smoked Have you smoked in the past 12 months: No Aproximately how many cigarettes per day: 0 - Alcohol/Substance Use Hx Alcohol Use: No History of Substance Use: reports: None - Social History Usual Living Arrangement: Yes: With Spouse, With Child ADL: Family Assistance 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 History of Recent Travel: No Home Medications - Allergies Allergies/Adverse Reactions: Allergies Allergy/AdvReac Type Severity Reaction Status Date / Time No Known Drug Allergies Allergy Verified 05/05/18 17:21 - Home Medications Home Medications: Ambulatory Orders Insulin (LOG) Aspart [NovoLOG -] 5 unit SQ ASDIR PRN 02/20/12 Insulin Glargine,Hum.rec.anlog [Lantus (10mL VIAL) -] 25 units SQ DAILY Carvedilol 12.5 mg PO DAILY 12/02/14 Brimonidine Tartrate/Timolol [Combigan 0.2%-0.5% Eye Drops] 1 drop OD BID Prednisolone 0.12% Ophthalmic [Pred Mild 0.12% -] 1 drop OS BID 05/16/17 Losartan Potassium 100 mg PO DAILY 02/16/18 Simvastatin 20 mg PO HS 02/16/18 Acetaminophen [Tylenol Extra Strength] 1,000 mg PO QID PRN 05/05/18 Tramadol HCl 50 mg PO DAILY PRN 05/05/18 Review of Systems - Review of Systems Constitutional: reports: Weakness Eyes: reports: No Symptoms HENT: reports: No Symptoms Neck: reports: No Symptoms Cardiovascular: reports: No Symptoms Respiratory: reports: No Symptoms Gastrointestinal: reports: No Symptoms Genitourinary: reports: No Symptoms Breasts: reports: No Symptoms Reported Musculoskeletal: reports: No Symptoms Integumentary: reports: No Symptoms Neurological: reports: Change in LOC, Syncope Endocrine: reports: No Symptoms Hematology/Lymphatic: reports: No Symptoms Psychiatric: reports: No Symptoms Physical Examination Vital Signs: Vital Signs Temperature 98.3 F 05/05/18 17:06 Pulse Rate 72 05/05/18 19:45 Respiratory Rate 18 05/05/18 19:45 Blood Pressure 145/80 05/05/18 19:45 O2 Sat by Pulse Oximetry (%) 100 05/05/18 19:45 Constitutional: Yes: No Distress, Calm Eyes: Yes: Cataracts (right eye), Other (cloudy Iris) HENT: Yes: WNL, Atraumatic, Normocephalic Neck: Yes: WNL, Supple, Trachea Midline Cardiovascular: Yes: WNL, Regular Rate and Rhythm, S1, S2 Respiratory: Yes: WNL, Regular, CTA Bilaterally Gastrointestinal: Yes: WNL, Normal Bowel Sounds, Soft Renal/: Yes: WNL Breast(s): Yes: WNL Musculoskeletal: Yes: Muscle Weakness Extremities: Yes: WNL Edema: No Peripheral Pulses WNL: Yes Integumentary: Yes: WNL Neurological: Yes: WNL, Alert, Oriented, Cran Nerves II-XII Intact ((unable to test vision/eye case due to blindness),) ...Motor Strength: WNL Psychiatric: Yes: WNL, Alert, Oriented Labs: CBC, BMP 05/05/18 18:01 05/05/18 18:01 Laboratory Results - last 24 hr 05/05/18 05/05/18 05/05/18 18:00 18:01 18:01 WBC 5.0 RBC 4.30 Hgb 12.6 Hct 38.8 MCV 90.1 MCH 29.3 MCHC 32.5 RDW 13.0 Plt Count 225 MPV 9.4 Absolute Neuts (auto) 2.8 Neutrophils % 57.3 Lymphocytes % 29.3 D Monocytes % 11.9 H Eosinophils % 0.4 D Basophils % 1.1 D PT with INR 13.0 INR 1.16 Sodium Potassium Chloride Carbon Dioxide Anion Gap BUN Creatinine Creat Clearance w eGFR POC Glucometer Random Glucose Calcium Phosphorus Magnesium Total Bilirubin GGT 60 AST ALT Alkaline Phosphatase Creatine Kinase Troponin I C-Reactive Protein < 0.3 Total Protein Albumin Urine Color Urine Appearance Urine pH Ur Specific [place] Urine Protein Urine Glucose (UA) Urine Ketones Urine Blood Urine Nitrite Urine Bilirubin Urine Urobilinogen Ur Leukocyte Esterase Urine RBC Urine WBC Urine Bacteria 05/05/18 05/05/18 05/05/18 18:01 18:01 18:30 WBC RBC Hgb Hct MCV MCH MCHC RDW Plt Count MPV Absolute Neuts (auto) Neutrophils % Lymphocytes % Monocytes % Eosinophils % Basophils % PT with INR INR Sodium 132 L Potassium 4.5 Chloride 102 Carbon Dioxide 26 Anion Gap 4 L BUN 24 H Creatinine 2.0 H Creat Clearance w eGFR 33.29 POC Glucometer Random Glucose 245 H D Calcium 9.3 Phosphorus 3.1 Magnesium 2.0 Total Bilirubin 0.4 GGT AST 24 D ALT 19 Alkaline Phosphatase 94 H Creatine Kinase 142 Troponin I < 0.03 C-Reactive Protein Total Protein 7.4 Albumin 3.8 Urine Color Yellow Urine Appearance Clear Urine pH 5.5 Ur Specific [place] 1.020 Urine Protein 1+ H Urine Glucose (UA) Trace Urine Ketones Trace Urine Blood Negative Urine Nitrite Negative Urine Bilirubin 1+ H Urine Urobilinogen 0.2 Ur Leukocyte Esterase Negative Urine RBC 0-2 Urine WBC 2-5 Urine Bacteria 1+ 05/05/18 05/06/18 05/06/18 23:30 00:00 00:01 WBC RBC Hgb Hct MCV MCH MCHC RDW Plt Count MPV Absolute Neuts (auto) Neutrophils % Lymphocytes % Monocytes % Eosinophils % Basophils % PT with INR INR Sodium Potassium Chloride Carbon Dioxide Anion Gap BUN Creatinine Creat Clearance w eGFR POC Glucometer 163 Random Glucose Calcium Phosphorus Magnesium Total Bilirubin GGT AST ALT Alkaline Phosphatase Creatine Kinase Troponin I Cancelled < 0.02 C-Reactive Protein Total Protein Albumin Urine Color Urine Appearance Urine pH Ur Specific [place] Urine Protein Urine Glucose (UA) Urine Ketones Urine Blood Urine Nitrite Urine Bilirubin Urine Urobilinogen Ur Leukocyte Esterase Urine RBC Urine WBC Urine Bacteria Intake & Output 05/03/18 05/04/18 05/05/18 05/06/18 23:59 23:59 23:59 23:59 Intake Total 1375 Output Total 325 700 Balance 1050 -700 Weight 78.471 kg 79.833 kg Current Medications Generic Name Dose Route Start Last Admin Trade Name Freq PRN Reason Stop Dose Admin Aspirin 81 mg 05/06/18 10:00 Asa - PO DAILY HAIR Atorvastatin Calcium 10 mg 05/05/18 23:45 Lipitor - PO HS HAIR Brimonidine Tartrate 1 drop 05/05/18 23:45 Alphagan 0.2% - OD BID HAIR Carvedilol 12.5 mg 05/06/18 10:00 Coreg - PO DAILY [facility] Losartan Potassium 100 mg 05/06/18 10:00 Cozaar - PO DAILY [facility] Prednisolone Acetate 1 drop 05/05/18 23:30 Pred Mild 0.12% - OS BID HAIR Timolol Maleate 1 drop 05/05/18 23:45 Timoptic 0.5% OD BID HAIR Imaging - Results MRI: Pending EKG: Image Reviewed Problem List - Problems (1) Syncope Code(s): R55 - SYNCOPE AND COLLAPSE Qualifiers: Syncope type: unspecified Qualified Code(s): R55 - Syncope and collapse (2) Hyperglycemia due to type 1 diabetes mellitus Code(s): E10.65 - TYPE 1 DIABETES MELLITUS WITH HYPERGLYCEMIA (3) Diabetes 1.5, managed as type 1 Code(s): E13.9 - OTHER SPECIFIED DIABETES MELLITUS WITHOUT COMPLICATIONS (4) HTN (hypertension) Code(s): I10 - ESSENTIAL (PRIMARY) HYPERTENSION (5) Glaucoma Code(s): H40.9 - UNSPECIFIED GLAUCOMA Assessment/Plan This is a 68 y/o man with a PMHx of: HTN, HLD, IDDM, Glaucoma, Chronic Blindness , recent admission for Syncope, Hypothermia (04/25-04/27). Placed in Telemetry Observation for Syncope for further evaluation of their emergent condition. Plan: 1. Syncope Admit Tele Observation Syncope r/o Seizure vs Arrhythmia Continue cardiac monitoring Neurology following Seizure Precautions Fall Precautions Bedrest Serial Enzymes neg x1, will continue EKG reviewed Chest xray reviewed Appreciate Cardiology consult Monitor CBC, BMP Last Echo, Head CT on last admission- unremarkable Brain MRI per Neurology recommendation Consider EEG outpatient will defer to Neurology 2. Hypertension Stable Continue Carvedilol, Losartan with parameters Monitor BP Monitor renal function 3. Hyperlipidemia Continue Simvastatin Monitor LFts 4. IDDM Stable BGMs ISS Appreciate Endocrinology consult HgbA1c in am 5. Glaucoma Continue Timolol, Prdenisolone FEN PO fluids as tolerated Replete lytes prn Low Na, Diabetic Diet DVT ppx OOB SCDs Consider AC if LOS > 48hrs Code Status: Full Code Dispo:Observation Visit type - Emergency Visit Emergency Visit: Yes ED Registration Date: 05/05/18 Care time: The patient presented to the Emergency Department on the above date and was hospitalized for further evaluation of their emergent condition. - New Patient This patient is new to me today: Yes Date on this admission: 05/05/18 - Critical Care Critical Care patient: No
[2018-05-05] MEDS ORDERED: ACETAMINOPHEN 500 MG TABLET (FP) PO ONE (21:00)
[2018-05-05] MEDS ORDERED: ACETAMINOPHEN 500 MG TABLET (FP) ONE (21:05)
--- NOTE | 2018-05-05 22:06 | CON.NEURO ---
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 According to the patient since not the first episode this happens started 10 years ago patient had been having the diagnosis of diabetes for a while patient denies any history of seizure disorder the emergency room called me last night we stepwise the patient and wanted to admit the patient for observation patient had a recent hip surgery in March. Patient was admitted in April 25 for a similar episode patient had a cardiac and no neurological workup patient had MR a of the brain in 2015. There is no family history of seizure. No report of any recent travel no report of any difficulty with speech nobehavior problem. Since admission to the hospital no recurrence of the episode patient was admitted to telemetry 3. Patient had a long history of glaucoma since he was child unfortunately he is legally blind. 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: Syncope (many epiosdes in past in setting of hypoglycemia), Other Cardio/Vascular: Yes: HTN, Hyperlipdemia ENT: Yes: Other (Glaucoma) Endocrine: Yes: Diabetes Mellitus (insulin requiring) Additional Medical History: glaucoma -> blindness - Alcohol/Substance Use Hx Alcohol Use: No History of Substance Use: reports: None - Smoking History Smoking history: Never smoked Have you smoked in the past 12 months: No Aproximately how many cigarettes per day: 0 - Social History Usual Living Arrangement: With Spouse (and 2 children) 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 Home Medications - Allergies Allergies/Adverse Reactions: Allergies Allergy/AdvReac Type Severity Reaction Status Date / Time No Known Drug Allergies Allergy Verified 05/05/18 17:21 - Home Medications Home Medications: Ambulatory Orders Insulin (LOG) Aspart [NovoLOG -] 5 unit SQ ASDIR PRN 02/20/12 Insulin Glargine,Hum.rec.anlog [Lantus (10mL VIAL) -] 25 units SQ DAILY Carvedilol 12.5 mg PO DAILY 12/02/14 Brimonidine Tartrate/Timolol [Combigan 0.2%-0.5% Eye Drops] 1 drop OD BID Prednisolone 0.12% Ophthalmic [Pred Mild 0.12% -] 1 drop OS BID 05/16/17 Losartan Potassium 100 mg PO DAILY 02/16/18 Simvastatin 20 mg PO HS 02/16/18 Acetaminophen [Tylenol Extra Strength] 1,000 mg PO QID PRN 05/05/18 Tramadol HCl 50 mg PO DAILY PRN 05/05/18 Family Disease History - Family Disease History Family History: Denies (seizure) Review of Systems - Review of Systems Constitutional: reports: No Symptoms Eyes: reports: No Symptoms Neurological: reports: Headache, Incoordination Physical Exam-Neuro Vital Signs: Vital Signs Temperature 98.3 F 05/05/18 17:06 Pulse Rate 75 05/05/18 21:00 Respiratory Rate 18 05/05/18 21:00 Blood Pressure 139/77 05/05/18 21:00 O2 Sat by Pulse Oximetry (%) 98 05/05/18 21:00 Constitutional: Yes: Well Nourished Neck: Yes: WNL Cardiovascular: Yes: WNL Labs: CBC, BMP 05/05/18 18:01 05/05/18 18:01 INR, PTT INR 1.16 (0.82-1.09) 05/05/18 18:01 - Neuro Exam Level Of Consciousness: Yes: Oriented to Person, Oriented to Place, Oriented to Time Eyes: Yes: PERRLA Speech: WNL Dominant Hand: Right Cranial Nerves II-XII Intact: Yes DTR's: 0 Left Brachioradialis, 0 Right Brachioradialis, 1+ Left Bicep, 1+ Right Bicep Response to light touch: Abnormal Response to pain prick: Abnormal Response to temperature: Abnormal Motor Strength: 3/5: Left Arm, Right Arm, Left Leg, Right Leg Imaging - Results Cat Scan: Image Reviewed Problem List - Problems (1) Syncope Assessment/Plan: syncope in an man with history of diabetes No other cranial nerve findings feeling of being sweaty perspiring before mild post ictal. Neurological differential diagnoses 1 autonomic dysfunction associated with diabetes. 2. Vasovagal syncope. 3. Doubt this is a TIA. 4. Rule out seizure 1. Agree to admit and monitor. 2. Check with cardiology for the Holter monitor. 3. Seizure precautions. 4. Increase by mouth fluid intake. 5. Tight blood sugar control. 6. C-peptide to rule out insulinoma. 7. MRI of the brain with no contrast. 8. Check orthostasis every shift. 99. Upon discharge we'll coordinate tilt table test to rule out dysautonomia and EEG to rule out seizure. Code(s): R55 - SYNCOPE AND COLLAPSE Qualifiers: Syncope type: unspecified Qualified Code(s): R55 - Syncope and collapse
[2018-05-05] MEDS ORDERED: PATIENT'S OWN MEDICATION (NON-FORMULARY) (Brimonidine Tartrate/Timolol [Combigan 0.2%-0.5% OD SCH (23:30)
[2018-05-06 00:46] LABS: GAMMA GLUTAMYL TRANSPEPTIDASE 60 U/L (5-85)
[2018-05-06] MEDS ORDERED: ACETAMINOPHEN 325 MG TABLET (FP) PO PRN (04:31)
[2018-05-06] MEDS: prednisoLONE ACETATE 0.12% OPTH SUSP- 5 ML BOTTLE OS SCH ×3 (06:32→21:52)
[2018-05-06] MEDS: ATORVASTATIN CA 10 MG TABLET (FP) PO SCH ×2 (06:33→21:51)
[2018-05-06] MEDS: BRIMONIDINE TARTRATE 0.2% OPHTHALMIC 5 ML BOTTLE OD SCH ×3 (06:33→21:51)
[2018-05-06] MEDS: TIMOLOL 0.5% OPHTHALMIC SOL 5 ML BOTTLE OD SCH ×3 (06:33→21:52)
[2018-05-06] MEDS: INSULIN SLIDING SCALE (NOVOLOG) 1 VIAL SQ SCH (06:53)
[2018-05-06] MEDS ORDERED: PT OWN MED DRAWER 7, Y5N ONE ×4 (07:17→21:50)
[2018-05-06 08:35] LABS: BASO % 0.3 % (0-2.0); EOS % 0.5 % (0-4.5); HEMATOCRIT 36.2 % (35.4-49); HEMOGLOBIN 11.9 GM/dl (11.7-16.9); MCH 29.5 pg (25.7-33.7); MCHC 32.9 g/dl (32.0-35.9); MEAN CELL VOLUME 89.8 fl (80-96); MEAN PLT VOLUME 9.5 fl (7.5-11.1); MONO % 12.1 % (3.8-10.2); NEUT % 39.1 % (42.8-82.8); PLATELET COUNT 215 K/MM3 (134-434); RBC 4.03 M/mm3 (4.00-5.60); RDW 13.2 % (11.9-15.9); WHITE BLOOD COUNT 3.9 K/mm3 (4.0-10.8)
--- NOTE | 2018-05-06 08:39 | PN ---
Physical Exam: SUBJECTIVE: Patient seen and examined at bedside. OBJECTIVE: Vital Signs Period Temp Pulse Resp BP Sys/Ramirez Pulse Ox Last 24 Hr 98.3 F-98.7 F 64-77 16-20 132-161/67-83 97-100 GENERAL: The patient is awake, alert, and fully oriented, in no acute distress. HEAD: Normal with no signs of trauma. EYES: Clouded corneas ENT: Ears normal, nares patent, oropharynx clear without exudates, moist mucous membranes. NECK: Trachea midline, full range of motion, supple. LUNGS: Breath sounds equal, clear to auscultation bilaterally, no wheezes, no crackles, no accessory muscle use. HEART: Regular rate and rhythm, S1, S2 without murmur, rub or gallop. ABDOMEN: Soft, nontender, nondistended RIGHT HIP: well-healed surgical scar, no sign of infection EXTREMITIES: 2+ pulses, warm, well-perfused, no edema. NEUROLOGICAL: Cranial nerves II through XII grossly intact. Normal speech Laboratory Results - last 24 hr 05/05/18 05/05/18 05/05/18 18:00 18:01 18:01 WBC 5.0 RBC 4.30 Hgb 12.6 Hct 38.8 MCV 90.1 MCH 29.3 MCHC 32.5 RDW 13.0 Plt Count 225 MPV 9.4 Absolute Neuts (auto) 2.8 Neutrophils % 57.3 Lymphocytes % 29.3 D Monocytes % 11.9 H Eosinophils % 0.4 D Basophils % 1.1 D PT with INR 13.0 INR 1.16 Sodium Potassium Chloride Carbon Dioxide Anion Gap BUN Creatinine Creat Clearance w eGFR POC Glucometer Random Glucose Calcium Phosphorus Magnesium Total Bilirubin GGT 60 AST ALT Alkaline Phosphatase Creatine Kinase Troponin I C-Reactive Protein < 0.3 Total Protein Albumin Urine Color Urine Appearance Urine pH Ur Specific [place] Urine Protein Urine Glucose (UA) Urine Ketones Urine Blood Urine Nitrite Urine Bilirubin Urine Urobilinogen Ur Leukocyte Esterase Urine RBC Urine WBC Urine Bacteria 05/05/18 05/05/18 05/05/18 18:01 18:01 18:30 WBC RBC Hgb Hct MCV MCH MCHC RDW Plt Count MPV Absolute Neuts (auto) Neutrophils % Lymphocytes % Monocytes % Eosinophils % Basophils % PT with INR INR Sodium 132 L Potassium 4.5 Chloride 102 Carbon Dioxide 26 Anion Gap 4 L BUN 24 H Creatinine 2.0 H Creat Clearance w eGFR 33.29 POC Glucometer Random Glucose 245 H D Calcium 9.3 Phosphorus 3.1 Magnesium 2.0 Total Bilirubin 0.4 GGT AST 24 D ALT 19 Alkaline Phosphatase 94 H Creatine Kinase 142 Troponin I < 0.03 C-Reactive Protein Total Protein 7.4 Albumin 3.8 Urine Color Yellow Urine Appearance Clear Urine pH 5.5 Ur Specific [place] 1.020 Urine Protein 1+ H Urine Glucose (UA) Trace Urine Ketones Trace Urine Blood Negative Urine Nitrite Negative Urine Bilirubin 1+ H Urine Urobilinogen 0.2 Ur Leukocyte Esterase Negative Urine RBC 0-2 Urine WBC 2-5 Urine Bacteria 1+ 05/05/18 05/06/18 05/06/18 23:30 00:00 00:01 WBC RBC Hgb Hct MCV MCH MCHC RDW Plt Count MPV Absolute Neuts (auto) Neutrophils % Lymphocytes % Monocytes % Eosinophils % Basophils % PT with INR INR Sodium Potassium Chloride Carbon Dioxide Anion Gap BUN Creatinine Creat Clearance w eGFR POC Glucometer 163 Random Glucose Calcium Phosphorus Magnesium Total Bilirubin GGT AST ALT Alkaline Phosphatase Creatine Kinase Troponin I Cancelled < 0.02 C-Reactive Protein Total Protein Albumin Urine Color Urine Appearance Urine pH Ur Specific [place] Urine Protein Urine Glucose (UA) Urine Ketones Urine Blood Urine Nitrite Urine Bilirubin Urine Urobilinogen Ur Leukocyte Esterase Urine RBC Urine WBC Urine Bacteria 05/06/18 05/06/18 05/06/18 06:41 07:30 07:30 WBC 3.9 L RBC 4.03 Hgb 11.9 Hct 36.2 MCV 89.8 MCH 29.5 MCHC 32.9 RDW 13.2 Plt Count 215 MPV 9.5 Absolute Neuts (auto) 1.5 Neutrophils % 39.1 L D Lymphocytes % 48.0 H D Monocytes % 12.1 H Eosinophils % 0.5 Basophils % 0.3 PT with INR INR Sodium Potassium Chloride Carbon Dioxide Anion Gap BUN Creatinine Creat Clearance w eGFR POC Glucometer 144 Random Glucose Calcium Phosphorus Magnesium Total Bilirubin GGT AST ALT Alkaline Phosphatase Creatine Kinase Troponin I < 0.03 C-Reactive Protein Total Protein Albumin Urine Color Urine Appearance Urine pH Ur Specific [place] Urine Protein Urine Glucose (UA) Urine Ketones Urine Blood Urine Nitrite Urine Bilirubin Urine Urobilinogen Ur Leukocyte Esterase Urine RBC Urine WBC Urine Bacteria Active Medications Generic Name Dose Route Start Last Admin Trade Name Freq PRN Reason Stop Dose Admin Acetaminophen 650 mg 05/06/18 04:31 Tylenol - PO Q6H PRN PAIN OR FEVER Aspirin 81 mg 05/06/18 10:00 Asa - PO DAILY [facility] Atorvastatin Calcium 10 mg 05/05/18 23:45 05/06/18 06:33 Lipitor - PO Not Given HS [facility] Brimonidine Tartrate 1 drop 05/05/18 23:45 05/06/18 06:33 Alphagan 0.2% - OD Not Given BID [facility] Carvedilol 12.5 mg 05/06/18 10:00 Coreg - PO DAILY [facility] Insulin Aspart 1 vial 05/06/18 07:00 05/06/18 06:53 Novolog Vial Sliding Scale - SQ Not Given ACHS [facility] Protocol Losartan Potassium 100 mg 05/06/18 10:00 Cozaar - PO DAILY [facility] Prednisolone Acetate 1 drop 05/05/18 23:30 05/06/18 06:32 Pred Mild 0.12% - OS Not Given BID [facility] Timolol Maleate 1 drop 05/05/18 23:45 05/06/18 06:33 Timoptic 0.5% OD Not Given BID [facility] ASSESSMENT/PLAN: 68 year-old male with a PMH significant for HTN, HLD, IDDM, legal blindness, glaucoma, right hip OA s/p right AHMET total hip arthroplasty 02/24/18. Placed on observation following a near syncopal episode. Near syncope secondary to hypoglycemia Type II IDDM --got up at 9:00am and did not eat breakfast; spent an hour at physical therapy; ate oatmeal and toast for lunch; went to the [facility] and had prodromal symptoms; son gave him some OJ and he recovered --no further episodes since arrival to ED --recent admission (04/25-04/27/18) for syncope with full workup, anti- hypertensives were adjusted --continue Novolog sliding scale coverage; hold Levemir --endocrine consult pending --nutrition consult requested for patient/family teaching Hypertension --BP stable --contiue carvedilol, losartan Hyperlipidemia --continue Lipitor Glaucoma - Continue home eye drop regimen s/p Right total hip arthroplasty - 02/24/18 --surgical incision well-healed FEN Fluids: PO intake adequate Electrolytes: replete as indicated Nutrition: low sodium, diabetic Dispo: continues to require inpatient care. Full code. Visit type - Emergency Visit Emergency Visit: Yes ED Registration Date: 05/05/18 Care time: The patient presented to the Emergency Department on the above date and was hospitalized for further evaluation of their emergent condition. - New Patient This patient is new to me today: Yes Date on this admission: 05/12/18 - Critical Care Critical Care patient: No
[2018-05-06 09:12] LABS: ANION GAP 8 MMOL/L (8-16); BLOOD UREA NITROGEN 17 mg/dl (7-18); CHLORIDE 104 mmol/L (98-107); CO2 24 mmol/L (22-28); CREATININE 1.3 mg/dl (0.6-1.3); GLUCOSE,RANDOM 145 mg/dl (74-106); MAGNESIUM 1.9 mg/dL (1.8-2.4); PHOSPHOROUS 3.9 mg/dl (2.5-4.6); SODIUM 136 mmol/L (136-145)
--- NOTE | 2018-05-06 09:36 | EKG ---
Test Reason : Blood Pressure : / mmHG Vent. Rate : 066 BPM Atrial Rate : 066 BPM P-R Int : 172 ms QRS Dur : 068 ms QT Int : 402 ms P-R-T Axes : 053 -04 -01 degrees QTc Int : 421 ms NORMAL SINUS RHYTHM NONSPECIFIC ST AND T WAVE ABNORMALITY consider anteriolateral ischemia ABNORMAL ECG WHEN COMPARED WITH ECG OF 25-APR-2018 13:15, NO SIGNIFICANT CHANGE WAS FOUND Confirmed by NAKIA RIDER MD ([id number]) on 05/06/2018 9:36:03 AM Referred By: Confirmed By:NAKIA RIDER MD
[2018-05-06] MEDS: CARVEDILOL 12.5 MG TABLET (FP) PO SCH (09:47)
[2018-05-06] MEDS: LOSARTAN POTASSIUM 50 MG TABLET (FP) PO SCH (09:47)
[2018-05-06] MEDS: ASPIRIN 81 MG CHEWABLE TABLETS PO SCH (09:47)
[2018-05-06 10:05] LABS: POTASSIUM 4.2 mmol/L (3.5-5.1)
--- NOTE | 2018-05-06 14:33 | CONSULT ---
Consult Consult Specialty:: Endocrinology Referred by:: Natasha Reece Reason for Consultation:: Hypoglycemia - History of Present Illness Chief Complaint: Syncope History of Present Illness: This is a 68 y/o man with h/o Hypertension, Hyperlipidemia, T2DM for about 8 years, on Insulin for about 4, Blindness, Cataract, Glaucoma, recent admission 04/25-04/27 for Syncope, Hypothermia who presented to the ED with his son for Syncope. The son reported that while is father was sitting in the [facility] chair he became ashen and unresponsive for 1-2 mins. Patient says he was sweating profusely and felt better after drinking orange juice. Pt says he hadn 't eaten much yesterday. Last Lantus dose of 20 units taken the night before yesterday. The son denied head trauma or loss of bowel or bladder incontinence. The son reported that the patient's BS in the morning was 119. He reported that the patient had a PT appointment before going to the [facility] without incident. Pt gives h/o of episode of hypoglycemia about 6 months ago also. FS at home has been running 80s to 140 for the last few weeks. Denies any paresthesia of feet but has polyuria and nocturia. No family h/o DM. 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 (many epiosdes in past in setting of hypoglycemia), Other Cardio/Vascular: Yes: HTN, Hyperlipdemia ENT: Yes: Other (Glaucoma) Endocrine: Yes: Diabetes Mellitus (insulin requiring) Additional Medical History: glaucoma -> blindness - Past Surgical History Past Surgical History: Yes: Joint Replacement - Alcohol/Substance Use Hx Alcohol Use: No History of Substance Use: reports: None - Smoking History Smoking history: Never smoked Have you smoked in the past 12 months: No Aproximately how many cigarettes per day: 0 - Social History Usual Living Arrangement: With Spouse (and 2 children) ADL: Family Assistance 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 History of Recent Travel: No Home Medications - Allergies Allergies/Adverse Reactions: Allergies Allergy/AdvReac Type Severity Reaction Status Date / Time No Known Drug Allergies Allergy Verified 05/05/18 17:21 - Home Medications Home Medications: Ambulatory Orders Insulin (LOG) Aspart [NovoLOG -] 5 unit SQ ASDIR PRN 02/20/12 Insulin Glargine,Hum.rec.anlog [Lantus (10mL VIAL) -] 25 units SQ DAILY Carvedilol 12.5 mg PO DAILY 12/02/14 Brimonidine Tartrate/Timolol [Combigan 0.2%-0.5% Eye Drops] 1 drop OD BID Prednisolone 0.12% Ophthalmic [Pred Mild 0.12% -] 1 drop OS BID 05/16/17 Losartan Potassium 100 mg PO DAILY 02/16/18 Simvastatin 20 mg PO HS 02/16/18 Acetaminophen [Tylenol Extra Strength] 1,000 mg PO QID PRN 05/05/18 Tramadol HCl 50 mg PO DAILY PRN 05/05/18 Family Disease History - Family Disease History Other Family History: No family h/o DM Review of Systems - Review of Systems Constitutional: reports: No Symptoms Eyes: reports: Other (Blindness both eyes) HENT: reports: No Symptoms Neck: reports: No Symptoms Cardiovascular: reports: No Symptoms Respiratory: reports: No Symptoms Gastrointestinal: reports: No Symptoms Genitourinary: reports: Other (Polyuria, nocturia) Musculoskeletal: reports: No Symptoms Integumentary: reports: No Symptoms Endocrine: reports: Other (polyuria, nocturia) Hematology/Lymphatic: reports: No Symptoms Physical Exam Vital Signs: Vital Signs Temperature 98.1 F 05/06/18 14:15 Pulse Rate 66 05/06/18 14:15 Respiratory Rate 18 05/06/18 14:15 Blood Pressure 136/74 05/06/18 14:15 O2 Sat by Pulse Oximetry (%) 100 05/06/18 14:15 Constitutional: Yes: No Distress, Calm Eyes: Yes: EOM Intact, Other (opaque cornea B/L) HENT: Yes: Atraumatic, Normocephalic Neck: Yes: Supple, Trachea Midline Cardiovascular: Yes: Regular Rate and Rhythm Respiratory: Yes: Regular, CTA Bilaterally Gastrointestinal: Yes: Normal Bowel Sounds, Soft Musculoskeletal: Yes: WNL Extremities: Yes: WNL Edema: No Neurological: Yes: Alert, Oriented Labs: CBC, BMP 05/06/18 07:30 05/06/18 07:30 Assessment/Plan AP: T2DM On Insulin Syncope ?Hypoglycemia Blindness HTN BGM QACHS Episodes of hypoglycemia probably related to erratic food intake after taking Insulin Discussed need to eat on time. No sugary drinks or other foodstuff Nutrition consult Start Januvia 25mg Daily Will add Metformin if renal function remains stable. Review of labs shows Creatinine was 2.0 yesterday but 1.3 today. Novolog SS coverage No Lantus for now. Will start at 8 units daily if blood sugar starts to rise above 200. Will f/u
[2018-05-06] MEDS ORDERED: sitaGLIPtin PHOSPHATE 25 MG TABLET (FP) PO ONE (15:00)
[2018-05-06 16:06] VITALS: BMI 24.5
--- NOTE | 2018-05-06 17:10 | CON.CARD ---
Cardiology Consult (text) - Consultation Consultation Note: cc: syncope hpi: 68 m hx dm, htn, hld, here with syncope. Yesterday was sitting in [facility] chair getting haircut and started feeling sweaty and then passed out. Had loc for about 2 mins. No cp sob palps dizzy le edema pnd orthopnea. Has had recurrent similar episodes, last was few weeks ago and was admitted for the same. Feels well now. Sees dr yadav for cardio. pmh: per hpi psh: hip surgery social: ex tob fam: no premature cad, scd ros: per hpi; no nvd fever cough waller abd pain gib hematuria dysuria meds: Home Medications Medication Instructions Recorded Insulin (LOG) Aspart [NovoLOG -] 5 unit SQ ASDIR PRN 02/20/12 Insulin Glargine,Hum.rec.anlog 25 units SQ DAILY 02/20/12 [Lantus (10mL VIAL) -] Carvedilol 12.5 mg PO DAILY 12/02/14 Brimonidine Tartrate/Timolol 1 drop OD BID 05/16/17 [Combigan 0.2%-0.5% Eye Drops] Prednisolone 0.12% Ophthalmic 1 drop OS BID 05/16/17 [Pred Mild 0.12% -] Losartan Potassium 100 mg PO DAILY 02/16/18 Simvastatin 20 mg PO HS 02/16/18 Acetaminophen [Tylenol Extra 1,000 mg PO QID PRN 05/05/18 Strength] Tramadol HCl 50 mg PO DAILY PRN 05/05/18 pe: Vital Signs Period Temp Pulse Resp BP Sys/Ramirez Pulse Ox Last 24 Hr 98.1 F-98.7 F 66-77 16-18 132-161/67-83 97-100 nad no jvd rrr s1s2 no mrg cta bl nl eff aaox3 no le e/c/c abd nd nd pos bs no jaundice diaphoresis pos dp pt no carotid bruits Laboratory Last Values WBC 3.9 K/mm3 (4.0-10.8) L 05/06/18 07:30 RBC 4.03 M/mm3 (4.00-5.60) 05/06/18 07:30 Hgb 11.9 GM/dl (11.7-16.9) 05/06/18 07:30 Hct 36.2 % (35.4-49) 05/06/18 07:30 MCV 89.8 fl (80-96) 05/06/18 07:30 MCH 29.5 pg (25.7-33.7) 05/06/18 07:30 MCHC 32.9 g/dl (32.0-35.9) 05/06/18 07:30 RDW 13.2 % (11.9-15.9) 05/06/18 07:30 Plt Count 215 K/MM3 (134-434) 05/06/18 07:30 MPV 9.5 fl (7.5-11.1) 05/06/18 07:30 Absolute Neuts (auto) 1.5 K/mm3 05/06/18 07:30 Neutrophils % 39.1 % (42.8-82.8) L D 05/06/18 07:30 Lymphocytes % 48.0 % (8-40) H D 05/06/18 07:30 Monocytes % 12.1 % (3.8-10.2) H 05/06/18 07:30 Eosinophils % 0.5 % (0-4.5) 05/06/18 07:30 Basophils % 0.3 % (0-2.0) 05/06/18 07:30 ESR 33 mm/hr (0-20) H 05/06/18 07:30 PT with INR 13.0 SEC (10.2-13.0) 05/05/18 18:01 INR 1.16 (0.82-1.09) 05/05/18 18:01 Sodium 136 mmol/L (136-145) 05/06/18 07:30 Potassium 4.2 mmol/L (3.5-5.1) 05/06/18 07:30 Chloride 104 mmol/L (98-107) 05/06/18 07:30 Carbon Dioxide 24 mmol/L (22-28) 05/06/18 07:30 Anion Gap 8 MMOL/L (8-16) 05/06/18 07:30 BUN 17 mg/dl (7-18) 05/06/18 07:30 Creatinine 1.3 mg/dl (0.6-1.3) 05/06/18 07:30 Creat Clearance w eGFR 54.73 (>60) 05/06/18 07:30 POC Glucometer 144 UNITS (80-120) 05/06/18 06:41 Random Glucose 145 mg/dl (74-106) H D 05/06/18 07:30 Hemoglobin A1c % 8.5 % (4.2-6.3) H 05/06/18 07:30 Calcium 9.0 mg/dl (8.4-10.2) 05/06/18 07:30 Phosphorus 3.9 mg/dl (2.5-4.6) D 05/06/18 07:30 Magnesium 1.9 mg/dL (1.8-2.4) 05/06/18 07:30 Total Bilirubin 0.4 mg/dl (0.2-1.0) 05/05/18 18:01 GGT 60 U/L (5-85) 05/05/18 18:00 AST 24 U/L (10-42) D 05/05/18 18:01 ALT 19 U/L (10-40) 05/05/18 18:01 Alkaline Phosphatase 94 U/L (32-92) H 05/05/18 18:01 Creatine Kinase 142 IU/L (26-308) 05/05/18 18:01 Troponin I < 0.03 ng/ml (0.00-0.06) 05/06/18 07:30 C-Reactive Protein < 0.3 MG/DL (0.00-0.3) 05/05/18 18:00 Total Protein 7.4 g/dl (6.4-8.3) 05/05/18 18:01 Albumin 3.8 g/dl (3.5-5.0) 05/05/18 18: Urine Color Yellow 05/05/18 18:30 Urine Appearance Clear 05/05/18 18:30 Urine pH 5.5 (4.5-8) 05/05/18 18:30 Ur Specific [place] 1.020 (1.010-1.035) 05/05/18 18:30 Urine Protein 1+ (NEGATIVE) H 05/05/18 18:30 Urine Glucose (UA) Trace (NEGATIVE) 05/05/18 18:30 Urine Ketones Trace (NEGATIVE) 05/05/18 18:30 Urine Blood Negative (NEGATIVE) 05/05/18 18: Urine Nitrite Negative (NEGATIVE) 05/05/18 18: Urine Bilirubin 1+ (NEGATIVE) H 05/05/18 18:30 Urine Urobilinogen 0.2 (0.2-1.0) 05/05/18 18:30 Ur Leukocyte Esterase Negative (NEGATIVE) 05/05/18 18:30 Urine RBC 0-2 /hpf (0-3) 05/05/18 18:30 Urine WBC 2-5 (0-2) 05/05/18 18:30 Urine Bacteria 1+ /hpf (NEGATIVE) 05/05/18 18:30 RPR Titer Nonreactive (NONREACTIVE) 05/06/18 07:30 ecg: sr, nl intervals, nonspec twchanges, no st changes echo 04/2018: lvh, nl lv/rv, mild lae, nl rvsp, no sig valve path carotids 04/2018: minimal dz, no sig stenosis mibi 12/2017: nl mpi, nl lvef tele: sr, no events a/p: 68 m hx dm, htn, hld, here with syncope. syncope: -unclear etiology, has been worked up with unremarkable echo, carotid us, tele monitoring recently -tele here benign -no signs chf, acs, arrhythmias, ortho hypotension -feels better now -will arrange for outpt event monitor and possible loop recorder if needed -continued neuro w/u to r/o seizures htn: -cont coreg and cozaar hld: -cont statin cardiac freed ok for dc
[2018-05-06] MEDS ORDERED: Insulin (LOG) Aspart 100 UNITS/ML VIAL SQ SCH (22:00)
[2018-05-07] MEDS: INSULIN SLIDING SCALE (NOVOLOG) 1 VIAL SQ SCH ×4 (06:28→11:38)
[2018-05-07] MEDS ORDERED: sitaGLIPtin PHOSPHATE 25 MG TABLET (FP) PO SCH (07:00)
[2018-05-07 08:30] LABS: ANION GAP 6 MMOL/L (8-16); BLOOD UREA NITROGEN 19 mg/dl (7-18); CALCIUM 9.4 mg/dl (8.4-10.2); CHLORIDE 106 mmol/L (98-107); CO2 26 mmol/L (22-28); CREATININE 1.3 mg/dl (0.6-1.3); GLUCOSE,RANDOM 169 mg/dl (74-106); MAGNESIUM 1.8 mg/dL (1.8-2.4); POTASSIUM 4.4 mmol/L (3.5-5.1); SODIUM 138 mmol/L (136-145)
[2018-05-07] MEDS ORDERED: PT OWN MED DRAWER 7, Y5N ONE (09:27)
[2018-05-07] MEDS: CARVEDILOL 12.5 MG TABLET (FP) PO SCH (09:35)
[2018-05-07] MEDS: ASPIRIN 81 MG CHEWABLE TABLETS PO SCH (09:37)
[2018-05-07] MEDS: LOSARTAN POTASSIUM 50 MG TABLET (FP) PO SCH (09:37)
[2018-05-07] MEDS: BRIMONIDINE TARTRATE 0.2% OPHTHALMIC 5 ML BOTTLE OD SCH (09:37)
[2018-05-07] MEDS: TIMOLOL 0.5% OPHTHALMIC SOL 5 ML BOTTLE OD SCH (09:38)
[2018-05-07] MEDS: prednisoLONE ACETATE 0.12% OPTH SUSP- 5 ML BOTTLE OS SCH (09:39)
--- NOTE | 2018-05-07 12:37 | DS ---
Physical Exam: SUBJECTIVE: Patient seen and examined OBJECTIVE: Vital Signs Period Temp Pulse Resp BP Sys/Ramirez Pulse Ox Last 24 Hr 97.9 F-98.6 F 62-66 16-20 136-152/64-74 98-100 PHYSICAL EXAM GENERAL: The patient is awake, alert, and fully oriented, in no acute distress. HEAD: Normal with no signs of trauma. EYES: PERRL, extraocular movements intact, sclera anicteric, conjunctiva clear. ENT: Ears normal, nares patent, oropharynx clear without exudates, moist mucous membranes. NECK: Trachea midline, full range of motion, supple. LUNGS: Breath sounds equal, clear to auscultation bilaterally, no wheezes, no crackles, no accessory muscle use. HEART: Regular rate and rhythm, S1, S2 without murmur, rub or gallop. ABDOMEN: Soft, nontender, nondistended, normoactive bowel sounds, no guarding, no rebound, no hepatosplenomegaly, no masses. EXTREMITIES: 2+ pulses, warm, well-perfused, no edema. NEUROLOGICAL: Cranial nerves II through XII grossly intact. Normal speech, gait not observed. PSYCH: Normal mood, normal affect. SKIN: Warm, dry, normal turgor, no rashes or lesions noted. LABS Laboratory Results - last 24 hr 05/06/18 05/06/18 05/07/18 07:30 21:54 06:06 Sodium Potassium Chloride Carbon Dioxide Anion Gap BUN Creatinine Creat Clearance w eGFR POC Glucometer 202 164 Random Glucose Calcium Magnesium Prolactin 11.6 05/07/18 05/07/18 07:10 11:27 Sodium 138 Potassium 4.4 Chloride 106 Carbon Dioxide 26 Anion Gap 6 L BUN 19 H Creatinine 1.3 Creat Clearance w eGFR 54.73 POC Glucometer 161 Random Glucose 169 H Calcium 9.4 Magnesium 1.8 Prolactin HOSPITAL COURSE: Date of Admission:05/05/18 Date of Discharge: 05/07/18 68 year-old male with a PMH significant for HTN, HLD, IDDM, legal blindness, glaucoma, right hip OA s/p right AHMET total hip arthroplasty 02/24/18. Placed on observation following a near syncopal episode. Hospital course by problem list Near syncope secondary to hypoglycemia Type II IDDM --got up at 9:00am and did not eat breakfast; spent an hour at physical therapy; ate oatmeal and toast for lunch; went to the [facility] and had prodromal symptoms; son gave him some OJ and he recovered --no further episodes since arrival to ED --recent admission (04/25-04/27/18) for syncope with full workup, anti- hypertensives were adjusted --seen and evaluated by endocrine: started on Januvia 25mg daily with Novolog sliding scale coverage; Lantus/Levemir was dc'd with instruction if blood sugar rises above 200, patient to start Lantus 8U daily --patient to follow up with Dr. Sue, his regular lead pharmacy technician -patient admitted to frequently skipping meals and finger sticking only once or twice daily; pipelines laborer met with patient and to reinforce diet and monitoring; two lengthy conversations by this provider team with patient, , and daughter who is a nursing executive reinforcing diabetic education Hypertension --BP stable --contiued carvedilol, losartan Hyperlipidemia --continued Lipitor Glaucoma - Continued home eye drop regimen s/p Right total hip arthroplasty - 02/24/18 --surgical incision well-healed Minutes to complete discharge: 35 Discharge Summary Reason For Visit: SYNCOPE Current Active Problems FILIBERTO (acute kidney injury) (Acute) Syncope (Acute) Condition: Improved - Instructions Diet, Activity, Other Instructions: During your hospital stay you were seen by Dr. Holguin, an lead pharmacy technician covering for Dr. Sue. Dr. Holguin changed your insulin regimen as follows: 1. Lantus (long-acting insulin) was stopped; 2. Januvia (long-acting pill) was started; a prescription has been sent to your pharmacy; 3. Novolog (short-acting insulin ) 5mg three times daily before meals was stopped; 4. Novolog (short-acting insulin) sliding scale coverage was started; you should fingerstick in the morning, before every meal, and at night, and give yourself coverage depending on the number. 5. If you sugars rise above 200 for more than 24 hours, resume taking Lantus 8 units at night. YOU MUST FOLLOW UP WITH DR. SUE SOON POSSIBLE. Call his office on May 11 to make the earliest appointment. Novolog sliding scale coverage Blood Sugar Dose to Administer [phone] call doctor Referrals: Clem Sue MD [Primary Care Provider] - 1 Week Disposition: HOME - Home Medications Comprehensive Discharge Medication List: Ambulatory Orders Carvedilol 12.5 mg PO DAILY 12/02/14 Brimonidine Tartrate/Timolol [Combigan 0.2%-0.5% Eye Drops] 1 drop OD BID Prednisolone 0.12% Ophthalmic [Pred Mild 0.12% -] 1 drop OS BID 05/16/17 Losartan Potassium 100 mg PO DAILY 02/16/18 Simvastatin 20 mg PO HS 02/16/18 Acetaminophen [Tylenol Extra Strength] 1,000 mg PO QID PRN 05/05/18 Tramadol HCl 50 mg PO DAILY PRN 05/05/18 Sitagliptin Phosphate [Januvia -] 25 mg PO DAILY@0700 #30 tab 05/07/18 This patient is new to me today: No Emergency Visit: Yes ED Registration Date: 05/05/18 Care time: The patient presented to the Emergency Department on the above date and was hospitalized for further evaluation of their emergent condition. Critical Care patient: No - Discharge Referral Referred to [facility] No
[2018-05-07 15:04] VITALS: BP 148/69; PULSE 69; TEMP 98.1
== END 2018-05-07 13:42 | disposition home or self-care (01) ==
LOC: FER 17:04 → FM/S 20:49 → UNDOADMOB 20:49 → FM/S 05-06 07:12
PROVIDERS: ADMIT Family Medicine; ATTEND Nurse Practitioner Acute Care
PROC: 3E0337Z Introduction of Electrolytic and Water Balance Substance into Peripheral Vein, Percutaneous Approach (ICD-10-PCS; principal; 2018-05-05)
PROC: 3E013VG Introduction of Insulin into Subcutaneous Tissue, Percutaneous Approach (ICD-10-PCS; 2018-05-05)
DX: R55 Syncope and collapse (principal); N17.9 Acute kidney failure, unspecified; E11.65 Type 2 diabetes mellitus with hyperglycemia; I10 Essential (primary) hypertension; H40.9 Unspecified glaucoma; H54.3 Unqualified visual loss, both eyes; E78.5 Hyperlipidemia, unspecified; N40.0 Benign prostatic hyperplasia without lower urinary tract symptoms; Z79.4 Long term (current) use of insulin
CPT/HCPCS: 36415; 70551-TC; 80048; 80053; 80171; 81003; 81015; 82550; 82962; 82977; 83036; 83735; 84100; 84146; 84484; 85025; 85610; 85651; 86140; 86593; 87086; 93005; 99285-25; G0378; J7030

== ENCOUNTER 2018-08-30 13:45 | Observation (INO) | payer OTHER ==
--- NOTE | 2018-08-30 14:38 | PDOC ---
History of Present Illness - General Chief Complaint: Weakness Stated Complaint: WEAK AND DIAPHORETIC Time Seen by Provider: 08/30/18 13:56 History Source: Patient Exam Limitations: No Limitations - History of Present Illness Initial Comments: 08/30/18 14:32 68 yo male PMH significant for HTN, HLD, IDDM, legal blindness, glaucoma, and right hip OA s/p right AHMET total hip arthroplasty 02/24/18 and multiple admissions for syncope/pre-syncope presents to the ED with a presyncopal episode. Pt states around 1 pm today while standing and shaving in the bathroom , he suddenly became very weak and diaphoretic, sat on the toilet afterwards and felt as though he would lose consciousness but did not. Pt son was present, blood sugar found to be 250s and blood pressure was low (70s/50s) and pt was driven to the ED. Pt denies LOC, CP, palpitations, SOB, back pain, abdominal pain, N/V, Past History - Past Medical History Allergies/Adverse Reactions: Allergies Allergy/AdvReac Type Severity Reaction Status Date / Time No Known Drug Allergies Allergy Verified 08/30/18 13:48 Home Medications: Ambulatory Orders Carvedilol 12.5 mg PO DAILY 12/02/14 Sitagliptin Phosphate [Januvia -] 25 mg PO DAILY@0700 08/30/18 Anemia: No Asthma: No Cancer: No (DENIES PROSTATE CA BUT HAD REMOVED 2010) Cardiac Disorders: No CVA: No COPD: No CHF: No Dementia: No Diabetes: Yes GI Disorders: No Disorders: Yes (ENLARGED PROSTATE) HTN: Yes Hypercholesterolemia: Yes Liver Disease: No Seizures: No Thyroid Disease: No Other medical history: LEGALLY BLIND GLAUCOMA - Surgical History Abdominal Surgery: No Appendectomy: No Cardiac Surgery: No Cholecystectomy: No Lung Surgery: No Neurologic Surgery: No Orthopedic Surgery: Yes (right hip 2018) - Immunization History Td Vaccination: Yes Immunization Up to Date: Yes - Suicide/Smoking/Psychosocial Hx Smoking Status: No Smoking History: Never smoked Have you smoked in the past 12 months: No Number of Cigarettes Smoked Daily: 0 Information on smoking cessation initiated: No Hx Alcohol Use: No Drug/Substance Use Hx: No Substance Use Type: None Hx Substance Use Treatment: No *Physical Exam - Vital Signs Last Vital Signs Temp Pulse Resp BP Pulse Ox 97.7 F 57 L 16 156/76 100 08/30/18 13:48 08/30/18 13:48 08/30/18 13:48 08/30/18 13:48 08/30/18 13:48 ED Treatment Course - LABORATORY CBC & Chemistry Diagram: 08/30/18 14:20 08/30/18 14:21 Medical Decision Making - Medical Decision Making 08/30/18 14:51 Attending discussed case with Dr. Elizalde, agrees to have pt admitted to [facility] OBS Jada Thao contact number [phone] *DC/Admit/Observation/Transfer Diagnosis at time of Disposition: Pre-syncope - Discharge Dispostion Condition at time of disposition: Stable Decision to Admit order: Yes - Referrals Referrals: Clem Sue MD [Primary Care Provider] - - Patient Instructions - Post Discharge Activity
[2018-08-30 14:50] LABS: BASO % 0.7 % (0-2.0); EOS % 0.9 % (0-4.5); HEMATOCRIT 42.8 % (35.4-49); HEMOGLOBIN 13.9 GM/dl (11.7-16.9); MCH 28.3 pg (25.7-33.7); MCHC 32.5 g/dl (32.0-35.9); MEAN PLT VOLUME 10.4 fl (7.5-11.1); MONO % 11.4 % (3.8-10.2); PLATELET COUNT 224 K/MM3 (134-434); RBC 4.92 M/mm3 (4.00-5.60); RDW 13.8 % (11.9-15.9); WHITE BLOOD COUNT 4.4 K/mm3 (4.0-10.8)
[2018-08-30 14:52] LABS: MAGNESIUM 2.2 mg/dL (1.8-2.4)
[2018-08-30 14:53] LABS: ALBUMIN 3.9 g/dl (3.4-5.0); ALK PHOS 89 U/L (45-117); ANION GAP 11 MMOL/L (8-16); BILIRUBIN,TOTAL 0.6 mg/dl (0.2-1); BLOOD UREA NITROGEN 22 mg/dl (7-18); CALCIUM 9.4 mg/dl (8.5-10); CHLORIDE 100 mmol/L (98-107); CO2 24 mmol/L (21-32); CREATININE 1.8 mg/dl (0.55-1.3); GLUCOSE,RANDOM 233 mg/dl (74-106); POTASSIUM 4.6 mmol/L (3.5-5.1); SGOT/AST 23 U/L (15-37); SGPT/ALT 18 U/L (13-61); SODIUM 135 mmol/L (136-145); TOT PROT 7.9 g/dl (6.4-8.2)
[2018-08-30 15:13] LABS: ACTIVATED PTT 27.2 SECONDS (25.2-36.5)
[2018-08-30 15:17] LABS: INR 1.09 (0.82-1.09); PROTHROMBIN TIME (PATIENT) 12.2 SEC (10.2-13.0)
--- NOTE | 2018-08-30 15:33 | PDOC ---
Attending Attestation - Resident Resident Name: AishwaryaelisjesusRj - ED Attending Attestation I have performed the following: I have examined & evaluated the patient, The case was reviewed & discussed with the resident, I agree w/resident's findings & plan, Exceptions are as noted - HPI HPI: 08/30/18 15:34 68 yo male PMH significant for HTN, HLD, IDDM, legal blindness, glaucoma, and right hip OA s/p right AHMET total hip arthroplasty 02/24/18 and multiple admissions for syncope/pre-syncope presents to the ED with pre-syncope. Pt was standing and shaving when he became very sweaty and lightheaded. He felt like he may pass out. He sat down on the toilet, and states he almost passed out but did not completely. Denies cp, sob, palpitations. Pt's son checked his BP and found it to be 70s/50s prompting him to come to the ED. Pt was in his USOH prior , denies fevers, chills, abd pain, N/V/D, focal weakness/numbness, headache, LE edema. - Physicial Exam PE: 08/30/18 15:42 GENERAL: Awake, alert, and fully oriented, in no acute distress ENT: Nares patent, oropharynx clear without exudates. Moist mucosa NECK: Normal ROM, supple, no lymphadenopathy, JVD, or masses LUNGS: Breath sounds equal, clear to auscultation bilaterally. No wheezes, and no crackles HEART: Regular rate and rhythm, normal S1 and S2, no murmurs, rubs or gallops ABDOMEN: Soft, nontender, normoactive bowel sounds. No guarding, no rebound. No masses EXTREMITIES: Normal range of motion, no edema. No cords, erythema, or tenderness NEUROLOGICAL: Normal speech, cranial nerves intact, equals strength and sensation b/l SKIN: Warm, Dry, normal turgor, no rashes or lesions noted. - Medical Decision Making 08/30/18 15:46 68yo M with MMP including DM, HTN, syncope presents to the ED with pre-syncopal sxs and hypotension Vitals here with elevated BP to 156/76 EKG with HANANE in V2-V3, however these are unchanged compared to prior EKG from . Pt does have new inferior TWI in leads II, III, AVF As such, EKG and case were discussed with Dr. Elizalde who recommend trending enzymes and tele observation. Labs including trop unremarkable CXR clear on my read Hospitalist has been paged for admission 08/30/18 16:04 Case discussed with SHIVA Nicole pt accepted for admission Case discussed in detail with admitting physician including history, physical exam and ancillary studies. Admitting physician has assumed care for the patient, will follow all pending diagnostics and will complete the evaluation and treatment. Heart Score/ECG Review #1 08/30/18 15:43 Twelve-lead EKG was performed and reviewed by me. Sinus bradycardia, rate 59. Normal axis. ST elevations in V2 and V3. T-wave inversions in 2, 3, aVF and V5 to V6. When compared to EKG from 05/05/2018, the ST elevations and TWI in V5-V6 are the same but the inferior T-wave inversions are new.
[2018-08-30 16:26] LABS: N-TERMINAL BNP 77.9 pg/ml (5-125)
--- NOTE | 2018-08-30 16:40 | CON.CARD ---
Cardiology Consult (text) - Consultation Consultation Note: cc: presyncope hpi: 68 m hx dm, htn, hld, here with presyncope. Today was standing in bathroom shaving and felt sweaty, lightheaded/weak. He sat down and had a drink and eventually sxs improved. No LOC. No cp sob palps le edema pnd orthopnea. Has had recurrent similar episodes, last was in april. Feels well now. Sees dr yadav for cardio. pmh: per hpi psh: hip surgery social: ex tob fam: no premature cad, scd ros: per hpi; no nvd fever cough waller abd pain gib hematuria dysuria; all others normal meds: Home Medications Medication Instructions Recorded Carvedilol 12.5 mg PO DAILY 12/02/14 Sitagliptin Phosphate [Januvia -] 25 mg PO DAILY@0700 08/30/18 pe: Vital Signs Period Temp Pulse Resp BP Sys/Ramirez Pulse Ox Last 24 Hr 97.7 F 57-64 14-16 150-158/76-88 100-100 nad no jvd rrr s1s2 no mrg cta bl nl eff aaox3 no le e/c/c abd nd nd pos bs no jaundice diaphoresis pos dp pt no carotid bruits Laboratory Last Values WBC 4.4 K/mm3 (4.0-10.8) 08/30/18 14:20 RBC 4.92 M/mm3 (4.00-5.60) 08/30/18 14:20 Hgb 13.9 GM/dl (11.7-16.9) 08/30/18 14:20 Hct 42.8 % (35.4-49) D 08/30/18 14:20 MCV 87.0 fl (80-96) 08/30/18 14:20 MCH 28.3 pg (25.7-33.7) 08/30/18 14:20 MCHC 32.5 g/dl (32.0-35.9) 08/30/18 14:20 RDW 13.8 % (11.9-15.9) 08/30/18 14:20 Plt Count 224 K/MM3 (134-434) 08/30/18 14:20 MPV 10.4 fl (7.5-11.1) 08/30/18 14:20 Absolute Neuts (auto) 2.5 K/mm3 08/30/18 14:20 Neutrophils % 55.0 % (42.8-82.8) D 08/30/18 14:20 Lymphocytes % 32.0 % (8-40) D 08/30/18 14:20 Monocytes % 11.4 % (3.8-10.2) H 08/30/18 14:20 Eosinophils % 0.9 % (0-4.5) 08/30/18 14:20 Basophils % 0.7 % (0-2.0) 08/30/18 14:20 PT with INR 12.2 SEC (10.2-13.0) 08/30/18 14:20 INR 1.09 (0.82-1.09) 08/30/18 14:20 PTT (Actin FS) 27.2 SECONDS (25.2-36.5) 08/30/18 14:20 Sodium 135 mmol/L (136-145) L 08/30/18 14:21 Potassium 4.6 mmol/L (3.5-5.1) 08/30/18 14:21 Chloride 100 mmol/L (98-107) 08/30/18 14:21 Carbon Dioxide 24 mmol/L (21-32) 08/30/18 14:21 Anion Gap 11 MMOL/L (8-16) 08/30/18 14:21 BUN 22 mg/dl (7-18) H 08/30/18 14:21 Creatinine 1.8 mg/dl (0.55-1.3) H 08/30/18 14:21 Creat Clearance w eGFR 37.60 (>60) 08/30/18 14:21 Random Glucose 233 mg/dl (74-106) H 08/30/18 14:21 Calcium 9.4 mg/dl (8.5-10) 08/30/18 14:21 Magnesium 2.2 mg/dL (1.8-2.4) 08/30/18 14:20 Total Bilirubin 0.6 mg/dl (0.2-1) 08/30/18 14:21 AST 23 U/L (15-37) 08/30/18 14:21 ALT 18 U/L (13-61) 08/30/18 14:21 Alkaline Phosphatase 89 U/L (45-117) 08/30/18 14:21 Creatine Kinase 159 U/L (26-308) 08/30/18 14:20 Creatine Kinase Index 1.6 % (0.0-5.0) 08/30/18 14:20 CK-MB (CK-2) 2.6 ng/mL (0.5-3.6) 08/30/18 14:20 Troponin I < 0.03 ng/ml (0.00-0.05) 08/30/18 14:20 B-Natriuretic Peptide 77.9 pg/ml (5-125) 08/30/18 14:21 Total Protein 7.9 g/dl (6.4-8.2) 08/30/18 14:21 Albumin 3.9 g/dl (3.4-5.0) 08/30/18 14:21 Urine Color Yellow 08/30/18 15:40 Urine Appearance Clear 08/30/18 15:40 Urine pH 7.0 (4.5-8) 08/30/18 15:40 Urine Protein 1+ (NEGATIVE) H 08/30/18 15:40 Urine Glucose (UA) 2+ (NEGATIVE) 08/30/18 15:40 Urine Ketones Negative (NEGATIVE) 08/30/18 15:40 Urine Blood Negative (NEGATIVE) 08/30/18 15:40 Urine Nitrite Negative (NEGATIVE) 08/30/18 15:40 Urine Bilirubin Negative (NEGATIVE) 08/30/18 15:40 Urine Urobilinogen 0.2 (0.2-1.0) 08/30/18 15:40 Ur Leukocyte Esterase Negative (NEGATIVE) 08/30/18 15:40 ecg: sr, nl intervals, nonspec st-tw changes, similar to prior ecgs from last year echo 04/2018: lvh, nl lv/rv, mild lae, nl rvsp, no sig valve path carotids 04/2018: minimal dz, no sig stenosis mibi 12/2017: nl mpi, nl lvef cxr: no chf a/p: 68 m hx dm, htn, hld, here with presyncope. presyncope/syncope: -frequent occurrences. has been worked up recently with unremarkable echo, carotid us, tele monitoring. -no signs chf, acs, arrhythmias, ortho hypotension -feels better now -plan after 04/2018 admit was to have event monitor. Pt reports he got it in mail months ago but never put on. Instructed pt to wear it and that he can come to office if needs help putting on. -on his last few admits for these episodes his initial cr has been elevated, possibly volume depletion contributing to these episodes as well, rec'd that he stay better hydrated. -for now can monitor on tele overnight, finish richie. If tele and enzymes benign then ok for dc tomorrow from cardiac pov and should f/u with dr yadav. htn: -cont coreg and cozaar hld: -cont statin
[2018-08-30 18:21] VITALS: BMI 23.3
--- NOTE | 2018-08-30 19:25 | HP ---
CHIEF COMPLAINT: Near syncope x 2 PCP/Endocrine: Dr. Sue Cardiology: Dr. Reid HISTORY OF PRESENT ILLNESS: 68 year-old male with a PMH significant for HTN, HLD, IDDM, legal blindness, and glaucoma. Well-known to this service for several admissions for syncope/ near syncope (October 2015, May 2017, two admissions April 2018). Patient was brought by his son to the ED today following the second of two near syncopal episodes in as many days. Yesterday patient rode his exercise bicycle. After he was done he laid down. He became sweaty and weak. His son did a fingerstick and it was "OK." He drank some water and the symptoms resolved. Today he got up and ate a breakfast of a corn muffin, egg white, and tea. He went to the bathroom and shaved. When he went to urinate he became sweaty and weak and sat on the toilet. His son did a fingerstick and it was "OK." The patient was able to walk to the garage with assistance and his son brought him to the ED. Patient denies chest pain, palpitations, SOB, THOMPSON, lower extremity edema. He denies fever, sweats, chills. He denies recent illness. 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 Smoking: never Alcohol: no Drugs: no Allergies No Known Drug Allergies Allergy (Verified 08/30/18 13:48) HOME MEDICATIONS: Home Medications Medication Instructions Recorded Carvedilol 12.5 mg PO DAILY 12/02/14 Sitagliptin Phosphate [Januvia -] 25 mg PO DAILY@0700 08/30/18 REVIEW OF SYSTEMS CONSTITUTIONAL: Absent: fever, chills, diaphoresis, generalized weakness, malaise, loss of appetite, weight change HEENT: Absent: rhinorrhea, nasal congestion, throat pain, throat swelling, difficulty swallowing, mouth swelling, ear pain, eye pain, visual changes CARDIOVASCULAR: +weakness, sweatiness, near syncope x 2 over 2 days Absent: chest pain, syncope, palpitations, irregular heart rate, lightheadedness , peripheral edema RESPIRATORY: Absent: cough, shortness of breath, dyspnea with exertion, orthopnea, wheezing, stridor, hemoptysis GASTROINTESTINAL: Absent: abdominal pain, abdominal distension, nausea, vomiting, diarrhea, constipation, melena, hematochezia GENITOURINARY: Absent: dysuria, frequency, urgency, hesitancy, hematuria, flank pain, genital pain MUSCULOSKELETAL: Absent: myalgia, arthralgia, joint swelling, back pain, neck pain SKIN: Absent: rash, itching, pallor HEMATOLOGIC/IMMUNOLOGIC: Absent: easy bleeding, easy bruising, lymphadenopathy, frequent infections ENDOCRINE: Absent: unexplained weight gain, unexplained weight loss, heat intolerance, cold intolerance NEUROLOGIC: Absent: headache, focal weakness or paresthesias, dizziness, unsteady gait, seizure, mental status changes, bladder or bowel incontinence PSYCHIATRIC: Absent: anxiety, depression, suicidal or homicidal ideation, hallucinations. PHYSICAL EXAMINATION Vital Signs - 24 hr 08/30/18 08/30/18 08/30/18 13:48 14:30 15:10 Temperature 97.7 F Pulse Rate 57 L Pulse Rate [ 64 64 Apical] Respiratory 16 16 14 Rate Blood Pressure 156/76 Blood Pressure 158/88 150/88 [Right Arm] O2 Sat by Pulse 100 100 Oximetry (%) 08/30/18 08/30/18 17:12 18:17 Temperature 98.5 F Pulse Rate 88 Pulse Rate [ 70 Apical] Respiratory 16 18 Rate Blood Pressure 152/63 Blood Pressure 160/85 [Right Arm] O2 Sat by Pulse 100 Oximetry (%) GENERAL: The patient is awake, alert, and fully oriented, in no acute distress. HEAD: Normal with no signs of trauma. EYES: Clouded corneas LUNGS: Breath sounds equal, clear to auscultation bilaterally, no wheezes, no crackles, no accessory muscle use. HEART: Regular rate and rhythm, S1, S2 ABDOMEN: Soft, nontender, nondistended RIGHT HIP: well-healed surgical scar EXTREMITIES: 2+ pulses, warm, well-perfused, no edema. NEUROLOGICAL: Cranial nerves II through XII grossly intact. Normal speech Laboratory Results - last 24 hr 08/30/18 08/30/18 08/30/18 14:20 14:20 14:20 WBC 4.4 RBC 4.92 Hgb 13.9 Hct 42.8 D MCV 87.0 MCH 28.3 MCHC 32.5 RDW 13.8 Plt Count 224 MPV 10.4 Absolute Neuts (auto) 2.5 Neutrophils % 55.0 D Lymphocytes % 32.0 D Monocytes % 11.4 H Eosinophils % 0.9 Basophils % 0.7 PT with INR 12.2 INR 1.09 PTT (Actin FS) 27.2 Sodium Potassium Chloride Carbon Dioxide Anion Gap BUN Creatinine Creat Clearance w eGFR Random Glucose Calcium Magnesium 2.2 Total Bilirubin AST ALT Alkaline Phosphatase Creatine Kinase 159 Creatine Kinase Index 1.6 CK-MB (CK-2) 2.6 Troponin I B-Natriuretic Peptide Total Protein Albumin Urine Color Urine Appearance Urine pH Urine Protein Urine Glucose (UA) Urine Ketones Urine Blood Urine Nitrite Urine Bilirubin Urine Urobilinogen Ur Leukocyte Esterase Urine RBC Urine WBC 08/30/18 08/30/18 08/30/18 14:20 14:21 15:40 WBC RBC Hgb Hct MCV MCH MCHC RDW Plt Count MPV Absolute Neuts (auto) Neutrophils % Lymphocytes % Monocytes % Eosinophils % Basophils % PT with INR INR PTT (Actin FS) Sodium 135 L Potassium 4.6 Chloride 100 Carbon Dioxide 24 Anion Gap 11 BUN 22 H Creatinine 1.8 H Creat Clearance w eGFR 37.60 Random Glucose 233 H Calcium 9.4 Magnesium Total Bilirubin 0.6 AST 23 ALT 18 Alkaline Phosphatase 89 Creatine Kinase Creatine Kinase Index CK-MB (CK-2) Troponin I < 0.03 B-Natriuretic Peptide 77.9 Total Protein 7.9 Albumin 3.9 Urine Color Yellow Urine Appearance Clear Urine pH 7.0 Urine Protein 1+ H Urine Glucose (UA) 2+ Urine Ketones Negative Urine Blood Negative Urine Nitrite Negative Urine Bilirubin Negative Urine Urobilinogen 0.2 Ur Leukocyte Esterase Negative Urine RBC 0-2 Urine WBC 0-1 ASSESSMENT/PLAN: 68 year-old male with a PMH significant for HTN, HLD, IDDM, legal blindness, and glaucoma. Placed on observation for two near-syncopal episodes over the past two days. Near syncope Type II IDDM --patient has had a number of admissions for similar episodes; extensive workups in April 2018; syncopal episodes were concluded to be multi- factorial. Echo, carotid US, and tele monitoring were unremarkable. There were no signs of HF, ACS, arrhythmias, or orthostatic hypotension. Anti- hypertensives were adjusted. Diabetic meds were adjusted. Patient was treated each time for FILIBERTO due to low volume. He was seen by a patternmaker apprentice wood for diabetic teaching. Patient was supposed to follow up with cardiology for event monitoring ; monitor was delivered to his home several months ago but patient never put it on; will bring monitor to hospital tonight and we will set it up in am --troponin neg x 1; two pending --ECG has ST elevations in lateral leads seen previously --telemetry monitoring --orthostatics --seen and evaluated by cardiology FILIBERTO --Cr 1.8, baseline 1.3 --urine studies pending --IV fluids Type II IDDM --need to verify current home insulin regimen --Novolog sliding scale coverage Hypertension --BP stable --continue carvedilol, losartan Hyperlipidemia --continue Lipitor Glaucoma - Continue home eye drop regimen FEN Fluids: NS x 500cc bolus x 1; then 75mL/hr Electrolytes: replete as indicated Nutrition: diabetic diet DVT prophylaxis: subq heparin Dispo: continues to require observation. Full code. Visit type - Emergency Visit Emergency Visit: Yes ED Registration Date: 08/30/18 Care time: The patient presented to the Emergency Department on the above date and was hospitalized for further evaluation of their emergent condition. - New Patient This patient is new to me today: Yes Date on this admission: 08/30/18 - Critical Care Critical Care patient: No
[2018-08-30] MEDS ORDERED: SODIUM CHLORIDE 1,000 ML IV SCH ×2 (20:15)
[2018-08-30] MEDS ORDERED: SODIUM CHLORIDE 500 ML IV STA (20:18)
[2018-08-30 20:55] LABS: CREATININE, URINE RANDOM 81 mg/dL (30-150)
[2018-08-30] MEDS ORDERED: REFRIGERATED ANITBIOTICS ONE (21:33)
[2018-08-30] MEDS ORDERED: INSULIN (NOVOLOG) ASPART 100 UNITS/ML 10ML VIAL ONE (21:37)
[2018-08-30] MEDS: ATORVASTATIN CA 10 MG TABLET (FP) PO SCH (21:42)
[2018-08-30] MEDS: INSULIN SLIDING SCALE (NOVOLOG) 1 VIAL SQ SCH (21:43)
[2018-08-30 21:59] LABS: URINE UREA NITROGEN 420 MG/DL (350-1000)
[2018-08-31] MEDS: INSULIN SLIDING SCALE (NOVOLOG) 1 VIAL SQ SCH ×4 (06:22→22:19)
[2018-08-31] MEDS: CARVEDILOL 12.5 MG TABLET (FP) PO SCH ×3 (06:22→21:47)
[2018-08-31] MEDS: LOSARTAN POTASSIUM 50 MG TABLET (FP) PO SCH (09:39)
[2018-08-31] MEDS: HEPARIN NA (PORCINE) 5,000 UNITS/ML 1ML VIAL SQ SCH ×2 (11:31→17:39)
[2018-08-31 12:29] LABS: BASO % 0.5 % (0-2.0); HEMOGLOBIN 13.3 GM/dl (11.7-16.9)
[2018-08-31 12:31] LABS: EOS % 0.8 % (0-4.5); HEMATOCRIT 40.1 % (35.4-49); MCH 28.6 pg (25.7-33.7); MEAN CELL VOLUME 86.8 fl (80-96); MEAN PLT VOLUME 9.8 fl (7.5-11.1); MONO % 9.4 % (3.8-10.2); NEUT % 52.3 % (42.8-82.8); PLATELET COUNT 211 K/MM3 (134-434); RBC 4.62 M/mm3 (4.00-5.60); WHITE BLOOD COUNT 4.2 K/mm3 (4.0-10.8)
[2018-08-31 12:36] LABS: ALBUMIN 3.4 g/dl (3.4-5.0); ALK PHOS 83 U/L (45-117); ANION GAP 4 MMOL/L (8-16); BILIRUBIN,TOTAL 0.5 mg/dl (0.2-1); BLOOD UREA NITROGEN 19 mg/dl (7-18); CALCIUM 9.1 mg/dl (8.5-10); CHLORIDE 104 mmol/L (98-107); CO2 28 mmol/L (21-32); CREATININE 1.3 mg/dl (0.55-1.3); GLUCOSE,RANDOM 211 mg/dl (74-106); MAGNESIUM 1.8 mg/dL (1.8-2.4); POTASSIUM 3.9 mmol/L (3.5-5.1); SGOT/AST 19 U/L (15-37); SGPT/ALT 15 U/L (13-61); SODIUM 136 mmol/L (136-145); TOT PROT 7.1 g/dl (6.4-8.2)
--- NOTE | 2018-08-31 17:01 | PN ---
Physical Exam: SUBJECTIVE: Patient seen and examined at bedside. No further episodes of weakness, diaphoresis. OBJECTIVE: Vital Signs Period Temp Pulse Resp BP Sys/Ramirez Pulse Ox Last 24 Hr 97.8 F-98.9 F 66-90 16-20 138-176/58-92 97-100 GENERAL: The patient is awake, alert, and fully oriented, in no acute distress. HEAD: Normal with no signs of trauma. EYES: Clouded corneas LUNGS: Breath sounds equal, clear to auscultation bilaterally, no wheezes, no crackles, no accessory muscle use. HEART: Regular rate and rhythm, S1, S2 ABDOMEN: Soft, nontender, nondistended RIGHT HIP: well-healed surgical scar EXTREMITIES: 2+ pulses, warm, well-perfused, no edema. NEUROLOGICAL: Cranial nerves II through XII grossly intact. Normal speech Laboratory Results - last 24 hr 08/30/18 08/30/18 08/30/18 20:20 21:14 21:15 WBC RBC Hgb Hct MCV MCH MCHC RDW Plt Count MPV Absolute Neuts (auto) Neutrophils % Lymphocytes % Monocytes % Eosinophils % Basophils % Sodium Potassium Chloride Carbon Dioxide Anion Gap BUN Creatinine Creat Clearance w eGFR POC Glucometer 293 Random Glucose Calcium Phosphorus Magnesium Total Bilirubin AST ALT Alkaline Phosphatase Troponin I < 0.03 Total Protein Albumin Ur Random Creatinine 81 Ur Random Sodium 45 08/31/18 08/31/18 08/31/18 03:00 05:39 11:03 WBC RBC Hgb Hct MCV MCH MCHC RDW Plt Count MPV Absolute Neuts (auto) Neutrophils % Lymphocytes % Monocytes % Eosinophils % Basophils % Sodium Potassium Chloride Carbon Dioxide Anion Gap BUN Creatinine Creat Clearance w eGFR POC Glucometer 200 237 Random Glucose Calcium Phosphorus Magnesium Total Bilirubin AST ALT Alkaline Phosphatase Troponin I < 0.03 Total Protein Albumin Ur Random Creatinine Ur Random Sodium 08/31/18 08/31/18 08/31/18 11:55 11:55 16:58 WBC 4.2 RBC 4.62 Hgb 13.3 Hct 40.1 MCV 86.8 MCH 28.6 MCHC 33.0 RDW 14.0 Plt Count 211 MPV 9.8 Absolute Neuts (auto) 2.2 Neutrophils % 52.3 Lymphocytes % 37.0 Monocytes % 9.4 Eosinophils % 0.8 Basophils % 0.5 Sodium 136 Potassium 3.9 Chloride 104 Carbon Dioxide 28 Anion Gap 4 L BUN 19 H Creatinine 1.3 Creat Clearance w eGFR 54.73 POC Glucometer 140 Random Glucose 211 H Calcium 9.1 Phosphorus 3.0 Magnesium 1.8 Total Bilirubin 0.5 AST 19 ALT 15 Alkaline Phosphatase 83 Troponin I Total Protein 7.1 Albumin 3.4 Ur Random Creatinine Ur Random Sodium Active Medications Generic Name Dose Route Start Last Admin Trade Name Freq PRN Reason Stop Dose Admin Atorvastatin Calcium 10 mg 08/30/18 22:00 08/30/18 21:42 Lipitor - PO 10 mg HS HAIR Administration Carvedilol 12.5 mg 08/31/18 22:00 Coreg - PO BID HAIR Heparin Sodium (Porcine) 5,000 unit 08/31/18 11:00 08/31/18 11:31 Heparin - SQ 5,000 unit Q8H-IV HAIR Administration Insulin Aspart 1 vial 08/30/18 22:00 08/31/18 11:29 Novolog Vial Sliding Scale - SQ 4 units ACHS HAIR Administration Protocol Losartan Potassium 100 mg 08/31/18 10:00 08/31/18 09:39 Cozaar - PO 100 mg DAILY HAIR Administration ASSESSMENT/PLAN: 68 year-old male with a PMH significant for HTN, HLD, IDDM, legal blindness, and glaucoma. Placed on observation for two near-syncopal episodes over the past two days. Near syncope Type II IDDM --patient has had a number of admissions for similar episodes; extensive workups in April 2018; syncopal episodes were concluded to be multi- factorial. Echo, carotid US, and tele monitoring were unremarkable. There were no signs of HF, ACS, arrhythmias, or orthostatic hypotension. Anti- hypertensives were adjusted. Diabetic meds were adjusted. Patient was treated each time for FILIBERTO due to low volume. He was seen by a pizza baker for diabetic teaching. Patient was supposed to follow up with cardiology for event monitoring ; monitor was delivered to his home several months ago but patient never put it on; will bring monitor to hospital tonight and we will set it up in am --troponin neg x 3 --ECG has ST elevations in lateral leads seen previously --telemetry monitoring - no overnight events --not orthostatic --event monitor connected to patient, to remain for 30 days, follow up with Dr. Reid FILIBERTO --Cr 1.8, 1.3 today with is baseline --stop IV fluids Type II IDDM --Novolog sliding scale coverage --seen and evaluated by Dr. Sue Hypertension --BP stable --continue carvedilol, losartan Hyperlipidemia --continue Lipitor Glaucoma - Continue home eye drop regimen FEN Fluids: PO inake adequate Electrolytes: replete as indicated Nutrition: diabetic diet DVT prophylaxis: subq heparin Dispo: continues to require observation. Full code. Visit type - Emergency Visit Emergency Visit: Yes ED Registration Date: 08/30/18 Care time: The patient presented to the Emergency Department on the above date and was hospitalized for further evaluation of their emergent condition. - New Patient This patient is new to me today: No - Critical Care Critical Care patient: No
[2018-08-31] MEDS: ATORVASTATIN CA 10 MG TABLET (FP) PO SCH (21:47)
--- NOTE | 2018-08-31 23:53 | CONSULT ---
Consult Consult Specialty:: endocrine Referred by:: christy beck Reason for Consultation:: diabetes mellitus 2 - History of Present Illness Chief Complaint: weak and dizzy feeling History of Present Illness: 68 yo male PMH significant for DM 2,HTN, HLD, legal blindness, glaucoma, and right hip OA s/p right AHMET total hip arthroplasty 02/24/18 and multiple admissions for syncope/pre-syncope presents with pre-syncope. Pt was standing and shaving when he became very sweaty and lightheaded. He felt like he may pass out. He sat down on the toilet, and states he almost passed out but did not completely. Denied, cp, sob, palpitations. Pt's son checked his BP and found it to be 70s systolic brought father to ed for evaluation. 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 (many epiosdes in past in setting of hypoglycemia), Other Cardio/Vascular: Yes: HTN, Hyperlipdemia ENT: Yes: Other (Glaucoma) Endocrine: Yes: Diabetes Mellitus (insulin requiring) Additional Medical History: glaucoma -> blindness - Past Surgical History Past Surgical History: Yes: Joint Replacement - Alcohol/Substance Use Hx Alcohol Use: No History of Substance Use: reports: None - Smoking History Smoking history: Never smoked Have you smoked in the past 12 months: No Aproximately how many cigarettes per day: 0 - Social History Usual Living Arrangement: With Spouse (and 2 children) ADL: Family Assistance 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 History of Recent Travel: No Home Medications - Allergies Allergies/Adverse Reactions: Allergies Allergy/AdvReac Type Severity Reaction Status Date / Time No Known Drug Allergies Allergy Verified 08/30/18 13:48 - Home Medications Home Medications: Ambulatory Orders Carvedilol 12.5 mg PO BID 12/02/14 Sitagliptin Phosphate [Januvia -] 25 mg PO DAILY@0700 08/30/18 Insulin Glargine,Hum.rec.anlog [Lantus (nf)] units SQ AM 08/31/18 Review of Systems - Review of Systems Constitutional: reports: Weakness Eyes: reports: No Symptoms HENT: reports: No Symptoms Neck: reports: No Symptoms Cardiovascular: reports: No Symptoms Respiratory: reports: Exercise Intolerance, SOB on Exertion Gastrointestinal: reports: Bloating Genitourinary: reports: No Symptoms Breasts: reports: No Symptoms Reported Musculoskeletal: reports: Muscle Cramps, Muscle Weakness Neurological: reports: Numbness, Unsteady Gait, Weakness Endocrine: reports: Unexplained Weight Loss Physical Exam Vital Signs: Vital Signs Temperature 98.2 F 08/31/18 22:00 Pulse Rate 66 08/31/18 22:00 Respiratory Rate 18 08/31/18 22:00 Blood Pressure 175/72 H 08/31/18 22:00 O2 Sat by Pulse Oximetry (%) 100 08/31/18 22:00 Constitutional: Yes: Calm Eyes: Yes: Other HENT: Yes: Normocephalic Neck: Yes: Trachea Midline Cardiovascular: Yes: Regular Rate and Rhythm Respiratory: Yes: CTA Bilaterally Gastrointestinal: Yes: Normal Bowel Sounds ...Rectal Exam: Yes: Deferred Renal/: Yes: WNL Breast(s): Yes: WNL Musculoskeletal: Yes: WNL Extremities: Yes: WNL Edema: No Peripheral Pulses WNL: No Neurological: Yes: Alert, Oriented Labs: CBC, BMP 08/31/18 11:55 08/31/18 11:55 Problem List - Problems (1) Type 2 diabetes mellitus with diabetic chronic kidney disease Code(s): E11.22 - TYPE 2 DIABETES MELLITUS W DIABETIC CHRONIC KIDNEY DISEASE (2) Near syncope Code(s): R55 - SYNCOPE AND COLLAPSE (3) FILIBERTO (acute kidney injury) Code(s): N17.9 - ACUTE KIDNEY FAILURE, UNSPECIFIED (4) Diabetes 1.5, managed as type 1 Code(s): E13.9 - OTHER SPECIFIED DIABETES MELLITUS WITHOUT COMPLICATIONS (5) Glaucoma Code(s): H40.9 - UNSPECIFIED GLAUCOMA (6) HTN (hypertension) Code(s): I10 - ESSENTIAL (PRIMARY) HYPERTENSION Assessment/Plan Current Active Problems Near syncope (Acute) Type 2 diabetes mellitus with diabetic chronic kidney disease (Acute) hypertension neuropathy hyperlipidemia Abnormal Lab Results 08/31/18 11:55 Anion Gap 4 L BUN 19 H Random Glucose 211 H Laboratory Results - last 24 hr 08/30/18 08/31/18 08/31/18 21:14 03:00 05:39 WBC RBC Hgb Hct MCV MCH MCHC RDW Plt Count MPV Absolute Neuts (auto) Neutrophils % Lymphocytes % Monocytes % Eosinophils % Basophils % Sodium Potassium Chloride Carbon Dioxide Anion Gap BUN Creatinine Creat Clearance w eGFR POC Glucometer 293 200 Random Glucose Calcium Phosphorus Magnesium Total Bilirubin AST ALT Alkaline Phosphatase Troponin I < 0.03 Total Protein Albumin 08/31/18 08/31/18 08/31/18 11:03 11:55 11:55 WBC 4.2 RBC 4.62 Hgb 13.3 Hct 40.1 MCV 86.8 MCH 28.6 MCHC 33.0 RDW 14.0 Plt Count 211 MPV 9.8 Absolute Neuts (auto) 2.2 Neutrophils % 52.3 Lymphocytes % 37.0 Monocytes % 9.4 Eosinophils % 0.8 Basophils % 0.5 Sodium 136 Potassium 3.9 Chloride 104 Carbon Dioxide 28 Anion Gap 4 L BUN 19 H Creatinine 1.3 Creat Clearance w eGFR 54.73 POC Glucometer 237 Random Glucose 211 H Calcium 9.1 Phosphorus 3.0 Magnesium 1.8 Total Bilirubin 0.5 AST 19 ALT 15 Alkaline Phosphatase 83 Troponin I Total Protein 7.1 Albumin 3.4 08/31/18 08/31/18 16:58 22:17 WBC RBC Hgb Hct MCV MCH MCHC RDW Plt Count MPV Absolute Neuts (auto) Neutrophils % Lymphocytes % Monocytes % Eosinophils % Basophils % Sodium Potassium Chloride Carbon Dioxide Anion Gap BUN Creatinine Creat Clearance w eGFR POC Glucometer 140 196 Random Glucose Calcium Phosphorus Magnesium Total Bilirubin AST ALT Alkaline Phosphatase Troponin I Total Protein Albumin plan: bgm qid achs novolog levemir 12 units am daily ck hba1c
[2018-08-31] MEDS ORDERED: INSULIN SLIDING SCALE (NOVOLOG) 1 VIAL SQ SCH (23:55)
[2018-09-01] MEDS ORDERED: PT OWN MED DRAWER 7, Y5N ONE (01:07)
[2018-09-01] MEDS: HEPARIN NA (PORCINE) 5,000 UNITS/ML 1ML VIAL SQ SCH ×2 (01:09→09:51)
[2018-09-01 02:15] VITALS: TEMP 98.4
[2018-09-01] MEDS: INSULIN SLIDING SCALE (NOVOLOG) 1 VIAL SQ SCH ×2 (06:56→12:06)
[2018-09-01] MEDS ORDERED: INSULIN (LEVEMIR) 100 UNITS/ML UNITS SQ SCH (07:00)
[2018-09-01] MEDS: LOSARTAN POTASSIUM 50 MG TABLET (FP) PO SCH ×3 (09:51→10:31)
[2018-09-01] MEDS: CARVEDILOL 12.5 MG TABLET (FP) PO SCH (09:51)
[2018-09-01 10:57] LABS: ANION GAP 7 MMOL/L (8-16); BLOOD UREA NITROGEN 18 mg/dl (7-18); CALCIUM 9.3 mg/dl (8.5-10); CHLORIDE 108 mmol/L (98-107); CO2 22 mmol/L (21-32); CREATININE 1.3 mg/dl (0.55-1.3); GLUCOSE,RANDOM 193 mg/dl (74-106); MAGNESIUM 1.7 mg/dL (1.8-2.4); SODIUM 137 mmol/L (136-145)
--- NOTE | 2018-09-01 11:53 | CONSULT ---
Consult - text type - Consultation Consultation Note: Podiatry Consultation: Pleasant 68 year old diabetic male presented to hospital for observation/ admission for syncopal episodes. Patient denies F/V/N/C. Podiatric consultation requested for possible ulcer of the right foot. The patient denies having an ulcer in the past. He denies any trauma or stepping on any foreign body. He has strong family support at home. PMHx: HTN, HLD, IDDM, legal blindness, and glaucoma Meds: noted ALL: NKMA LEONIDES: Pedal pulses 1/4 DP, PT; TG wnl, CFT BRisk to all toes bilaterally. There is a pretrophic lesion limited to skin sub-fifth metatarsal, no probing, no depth, no drainage, no purulence, no fluctuance, no streaking cellulitis, no signs of acute infection. No ischemic changes to the foot. Minimal tenderness to palpation of the lesion. Imp: 68 year old diabetic male with pre-trophic ulcer lesion sub-fifth metatarsal right foot No acute intervention required at this time. I have recommended the patient f/ u with me upon discharge at the wound healing center at [facility]. He would benefit from non-invasive vascular studies and initial debridement. Wound healing center number is [phone]. Please provide patient with contact information upon discharge, I am available on at the wound healing center. I have advised the patient on appropriate diabetic foot hygiene as well. Thank you for the courtesy of this consultation. Earl Gaitan DPM
[2018-09-01] MEDS ORDERED: MAGNESIUM OXIDE 400 MG TABLET (FP) PO ONE (12:03)
--- NOTE | 2018-09-01 12:10 | EKG ---
Test Reason : Blood Pressure : / mmHG Vent. Rate : 057 BPM Atrial Rate : 057 BPM P-R Int : 178 ms QRS Dur : 086 ms QT Int : 432 ms P-R-T Axes : 056 -06 -63 degrees QTc Int : 420 ms SINUS BRADYCARDIA WITH PREMATURE ATRIAL COMPLEXES POSSIBLE LEFT ATRIAL ENLARGEMENT ST ELEVATION CONSIDER ANTERIOR INJURY OR ACUTE INFARCT ABNORMAL ECG WHEN COMPARED WITH ECG OF 05-MAY-2018 17:37, PREMATURE ATRIAL COMPLEXES ARE NOW PRESENT INVERTED T WAVES HAVE REPLACED NONSPECIFIC T WAVE ABNORMALITY IN INFERIOR LEADS Confirmed by RICCI ALEXIS MD ([id number]) on 09/01/2018 12:10:14 PM Referred By: BHAVESH SAINI Confirmed By:RICCI ALEXIS MD
[2018-09-01 14:30] VITALS: BP 138/63; PULSE 64
--- NOTE | 2018-09-01 14:33 | DS ---
Physical Exam: SUBJECTIVE: Patient seen and examined. Feels well. There were no episodes of weakness, diaphoresis during hospital stay. OBJECTIVE: Vital Signs Period Temp Pulse Resp BP Sys/Ramirez Pulse Ox Last 24 Hr 98.2 F-98.4 F 63-79 17-18 131-175/63-79 98-100 PHYSICAL EXAM GENERAL: The patient is awake, alert, and fully oriented, in no acute distress. HEAD: Normal with no signs of trauma. EYES: Clouded corneas LUNGS: Breath sounds equal, clear to auscultation bilaterally, no wheezes, no crackles, no accessory muscle use. HEART: Regular rate and rhythm, S1, S2 ABDOMEN: Soft, nontender, nondistended RIGHT HIP: well-healed surgical scar EXTREMITIES: 2+ pulses, warm, well-perfused, no edema. NEUROLOGICAL: Cranial nerves II through XII grossly intact. Normal speech LABS Laboratory Results - last 24 hr 08/31/18 08/31/18 09/01/18 16:58 22:17 06:54 Sodium Potassium Chloride Carbon Dioxide Anion Gap BUN Creatinine Creat Clearance w eGFR POC Glucometer 140 196 149 Random Glucose Hemoglobin A1c % Calcium Magnesium 09/01/18 09/01/18 09/01/18 10:00 10:00 11:32 Sodium 137 Potassium 4.0 Chloride 108 H Carbon Dioxide 22 Anion Gap 7 L BUN 18 Creatinine 1.3 Creat Clearance w eGFR 54.73 POC Glucometer 235 Random Glucose 193 H Hemoglobin A1c % 8.9 H Calcium 9.3 Magnesium 1.7 L HOSPITAL COURSE: Date of Admission:08/30/18 Date of Discharge: 09/01/18 Pre hospital course 68 year-old male with a PMH significant for HTN, HLD, IDDM, legal blindness, and glaucoma. Well-known to this service for several admissions for syncope/ near syncope (October 2015, May 2017, two admissions April 2018). Patient was brought by his son to the ED today following the second of two near syncopal episodes in as many days. Yesterday patient rode his exercise bicycle. After he was done he laid down. He became sweaty and weak. His son did a fingerstick and it was "OK." He drank some water and the symptoms resolved. Today he got up and ate a breakfast of a corn muffin, egg white, and tea. He went to the bathroom and shaved. When he went to urinate he became sweaty and weak and sat on the toilet. His son did a fingerstick and it was "OK." The patient was able to walk to the garage with assistance and his son brought him to the ED. Patient denies chest pain, palpitations, SOB, THOMPSON, lower extremity edema. He denies fever, sweats, chills. He denies recent illness. ER course (1) Cr 1.8 (2) Glucose 233 (3) Troponin neg x 1 Subsequent hospital course 68 year-old male with a PMH significant for HTN, HLD, IDDM, legal blindness, and glaucoma. Placed on observation for two near-syncopal episodes over the past two days. Near syncope Type II IDDM --patient has had a number of admissions for similar episodes; extensive workups in April 2018; syncopal episodes were concluded to be multi- factorial. Echo, carotid US, and tele monitoring were unremarkable. There were no signs of HF, ACS, arrhythmias, or orthostatic hypotension. Anti- hypertensives were adjusted. Diabetic meds were adjusted. Patient was treated each time for FILIBRETO due to low volume. He was seen by a patient registration rep for diabetic teaching. Patient was supposed to follow up with cardiology for event monitoring ; monitor was delivered to his home several months ago but patient never put it on; brought monitor for home and it was set up, to stay on for 30 days --troponin neg x 3 --ECG has ST elevations in lateral leads seen previously --telemetry monitoring - no events --not orthostatic FILIBERTO --Cr 1.8 on admission, improved to 1.3 today with is baseline --was treated for 24 hours with IV fluids --repeated emphasis with patient and family about staying well-hydrated Type II IDDM --not optimally controlled HgbA1C 8.9 --seen and evaluated by Dr. Sue; James 12U in am, Novolog sliding scale Hypertension --BP stable --continued carvedilol, losartan Hyperlipidemia --continued Lipitor Minutes to complete discharge: 35 Discharge Summary Reason For Visit: SYNCOPE NONSPECIFIC ST-T WAVE ELECTROCARDIOGRAPHIC Current Active Problems Near syncope (Acute) Type 2 diabetes mellitus with diabetic chronic kidney disease (Acute) Condition: Improved - Instructions Diet, Activity, Other Instructions: During your hospital stay you were connected to an event monitor. The monitor needs to be in place for [address] Reid's office, let them know that you have the monitor on, and they will instruct you going forward. During your hopsital stay you were seen by arabic linguist Dr. Pedro Gaitan. You have a very early lesion on your left foot which will require close monitoring. Please make an appointment to see Dr. Gaitan at [facility] at your earliest opportunity. Dr. Gaitan sees patients on Tuesdays. [phone]. It is very important that you stay well-hydrated. Drink 6-8 8ounce glasses of water daily, more if you exercise and perspire. Please keep to your regularly scheduled appointments with Dr. Sue, your choral director. Two prescriptions have been sent to your pharmacy: one is for losartan (blood pressure) and one is for Levemir (diabetes). Take these medications as directed. Return to the emergency department for any new or worsening symptoms. Referrals: Pedro Gaitan MD [Staff Physician] - Edna Reid MD [Staff Physician] - Clem Sue MD [Primary Care Provider] - Disposition: HOME - Home Medications Comprehensive Discharge Medication List: Ambulatory Orders Carvedilol 12.5 mg PO BID 12/02/14 Sitagliptin Phosphate [Januvia -] 25 mg PO DAILY@0700 08/30/18 Insulin Glargine,Hum.rec.anlog [Lantus (10mL VIAL) -] 12 units SQ AM #1 vial Losartan Potassium [Cozaar -] 100 mg PO DAILY #30 tablet 09/01/18 This patient is new to me today: No Emergency Visit: Yes ED Registration Date: 08/30/18 Care time: The patient presented to the Emergency Department on the above date and was hospitalized for further evaluation of their emergent condition. Critical Care patient: No - Discharge Referral Referred to [facility] No
== END 2018-09-01 15:16 | disposition home or self-care (01) ==
LOC: FER 13:45 → FM/S 15:30
PROVIDERS: ATTEND Nurse Practitioner Acute Care
PROC: 3E0337Z Introduction of Electrolytic and Water Balance Substance into Peripheral Vein, Percutaneous Approach (ICD-10-PCS; principal; 2018-08-30)
PROC: 3E013VG Introduction of Insulin into Subcutaneous Tissue, Percutaneous Approach (ICD-10-PCS; 2018-08-30)
PROC: 3E013GC Introduction of Other Therapeutic Substance into Subcutaneous Tissue, Percutaneous Approach (ICD-10-PCS; 2018-08-30)
DX: R55 Syncope and collapse (principal); E11.22 Type 2 diabetes mellitus with diabetic chronic kidney disease; I12.9 Hypertensive chronic kidney disease with stage 1 through stage 4 chronic kidney disease, or unspecified chronic kidney disease; N18.9 Chronic kidney disease, unspecified; N17.9 Acute kidney failure, unspecified; Z79.4 Long term (current) use of insulin; E78.5 Hyperlipidemia, unspecified; H54.8 Legal blindness, as defined in USA; H40.9 Unspecified glaucoma; M16.11 Unilateral primary osteoarthritis, right hip; N40.0 Benign prostatic hyperplasia without lower urinary tract symptoms; L97.519 Non-pressure chronic ulcer of other part of right foot with unspecified severity; R94.31 Abnormal electrocardiogram [ECG] [EKG]; Z96.641 Presence of right artificial hip joint
CPT/HCPCS: 36415; 71045-TC-FY; 80048; 80053; 81003; 81015; 82550; 82553; 82565; 82962; 83036; 83735; 83880; 84100; 84300; 84484; 85025; 85610; 85730; 93005; 99283-25; G0378; J1644; J7030

== ENCOUNTER 2018-12-23 15:46 | Day surgery (SDC) | payer OTHER ==
[2018-12-07 18:12] VITALS: BMI 24.4
--- NOTE | 2018-12-23 11:24 | HP ---
Admitting History and Physical - Admission Chief Complaint: right inguinal bulge History of Present Illness: 68 y.o. male with right inguinal bulge associated with pain on exertion. 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 History of Recent Travel: No Home Medications - Allergies Allergies/Adverse Reactions: Allergies Allergy/AdvReac Type Severity Reaction Status Date / Time No Known Drug Allergies Allergy Verified 12/23/18 10:55 - Home Medications Home Medications: Ambulatory Orders Carvedilol 12.5 mg PO BID 12/02/14 Sitagliptin Phosphate [Januvia -] 25 mg PO DAILY@0700 08/30/18 Insulin Glargine,Hum.rec.anlog [Lantus (10mL VIAL) -] 12 units SQ AM #1 vial Losartan Potassium [Cozaar -] 100 mg PO DAILY #30 tablet 09/01/18 Ranitidine HCl [Zantac] 150 mg PO DAILY 09/20/18 Docusate Sodium [Colace -] 100 mg PO BID PRN #14 capsule 12/23/18 Oxycodone HCl/Acetaminophen [Percocet 5-325 mg Tablet] 1 - 2 tab PO Q6H PRN #30 tab MDD 8 12/23/18 Review of Systems - Review of Systems Eyes: reports: Other (legally blind) HENT: reports: No Symptoms Neck: reports: No Symptoms Respiratory: reports: No Symptoms Gastrointestinal: reports: Other (mild right inguinal pain on exertion) Genitourinary: reports: No Symptoms Physical Examination Vital Signs: Vital Signs Temperature Pulse Rate Respiratory Rate Blood Pressure O2 Sat by Pulse Oximetry (%) 100 12/23/18 10:57 Constitutional: Yes: Well Nourished Neck: Yes: Supple Respiratory: Yes: CTA Bilaterally Gastrointestinal: Yes: Normal Bowel Sounds, Soft, Hernia (reducible RIH, questionable left inguinal bulge, 2 cm umbilical bulge) Problem List - Problems (1) Inguinal hernia Assessment/Plan: robotic RIH repair with mesh, possible bilateral Code(s): K40.90 - UNIL INGUINAL HERNIA, W/O OBST OR GANGR, NOT SPCF RECUR (2) Umbilical hernia Assessment/Plan: umbilical hernia repair with possible mesh reconstruction Code(s): K42.9 - UMBILICAL HERNIA WITHOUT OBSTRUCTION OR GANGRENE
--- NOTE | 2018-12-23 15:34 | OP ---
Operative Note - Note: Operative Date: 12/23/18 Pre-Operative Diagnosis: bilateral inguinal and umbilical hernia Operation: robotic bilateral inguinal hernia repair with mesh and open umbilical hernia suture repair Findings: bilateral indirect inguinal hernias and umbilical hernia Implants: 15 x 10 cm progrip mesh Surgeon: Aung Daniels Produce Runner: Nahum Leavitt Anesthesia: General Estimated Blood Loss (mls): 5 Operative Report Dictated: Yes
[~2018-12-23 15:46] MED LIST: BUPIVACAINE HCL/PF 0.5% (5 MG/ML) 30 ML VIAL IJ ONE; LACTATED RINGERS SOLUTION 1,000 ML IV SCH; MIDAZOLAM HCL 2 MG/2 ML SINGLE DOSE VIAL ONE; NEOSTIGMINE METHYLSULFATE 0.5 MG/ML - 10 ML MDV ONE; ONDANSETRON 4 MG/2 ML VIAL IVPUSH PRN; PROPOFOL 20 ML ONE; ROCURONIUM BROMIDE 50 MG/5 ML SYRINGE ONE; ceFAZolin SODIUM 1 GM VIAL IVPB ONE; hydrALAZINE HCL 20 MG/ML VIAL IVPUSH ONE; hydrALAZINE HCL 20 MG/ML VIAL ONE
[2018-12-23] MEDS ORDERED: hydrALAZINE HCL 20 MG/ML VIAL IVPUSH ONE (16:02)
[2018-12-23] MEDS: oxyCODONE HCL 5 MG TABLET PO PRN (17:51)
[2018-12-23] MEDS: KETOROLAC TROMETHAMINE 30 MG/1 ML VIAL IM PRN (21:52)
[2018-12-23] MEDS: CARVEDILOL 12.5 MG TABLET (FP) PO SCH (21:53)
[2018-12-24] MEDS ORDERED: INSULIN (LEVEMIR) 100 UNITS/ML UNITS SQ SCH (07:00)
[2018-12-24] MEDS: oxyCODONE HCL 5 MG TABLET PO PRN (09:00)
[2018-12-24] MEDS: CARVEDILOL 12.5 MG TABLET (FP) PO SCH (09:01)
--- NOTE | 2018-12-24 09:46 | OP ---
DATE OF OPERATION: 12/23/2018 PROCEDURE: Robotic-assisted laparoscopic bilateral inguinal hernia repair with mesh and open umbilical hernia repair. PREOPERATIVE DIAGNOSIS: Bilateral inguinal hernia and umbilical hernia POSTOPERATIVE DIAGNOSIS: Bilateral inguinal hernia and umbilical hernia. SURGEON: Aung Daniels MD DISASTER DIRECTOR: VIOLET Bird and VIOLET Murillo ANESTHESIA: General endotracheal. REASON FOR PROCEDURE: This is a 68-year-old male who presented with right inguinal bulge associated with pain on exertion. On physical exam, patient had a reducible right inguinal bulge and a small left inguinal and umbilical hernia. So patient was advised repair of the 3 hernias, and consent was obtained after discussing the risks, benefits, and alternatives of the procedure. PROCEDURE IN DETAIL: Patient was brought to the operating room and placed in supine position. General endotracheal anesthesia was administered. The abdomen was prepped and draped in the usual sterile fashion. A Salcido catheter was also inserted. Using 0.5% Marcaine, local anesthesia was administered to the proposed incision sites. The peritoneal cavity was entered using the Veress needle technique via an 8-mm supraumbilical incision about 2 fingerbreadths above the umbilicus. Pneumoperitoneum was established. This was followed by insertion of an 8-mm port. The 3D laparoscope was inserted, and the peritoneal cavity was carefully inspected and was noted to be free of inadvertent injury. Two other 8-mm ports were inserted 8 cm away from the midline port. Patient was placed in Trendelenburg position, and 2 inguinal hernias were identified the right being larger than the left side. The target organ was set, and the robotic arms were docked. A fenestrated bipolar forceps was inserted at the left-sided port and the Endowrist Elinor connected to monopolar cautery were inserted at the right-sided port. The undersigned then scrubbed out to commence the console part of the procedure. The right inguinal hernia was addressed first by creating a preperitoneal pocket incising the peritoneum at the level of the anterior superior iliac spine. Using the EndoWrist Elinor, blunt and sharp dissection was created using the inferior epigastric artery as a landmark, the dissection was carried under the inferior epigastric artery towards the indirect hernia sac. Dissection was carried medially towards the underside of the symphysis pubis and laterally towards the anterior superior iliac spine. Inferiorly, the hernia sac was carefully and dissected away from the spermatic cord attachments using the blunt and sharp dissection with the EndoWrist Elinor and fenestrated bipolar. The peritoneal reflection was dissected far away from the internal ring to about 7 cm. After the hernia was completely reduced, the 10-cm x 15-cm ProGrip mesh was deployed covering both the internal ring, the inguinal floor the femoral canal area, and Hesselbach's triangle. After deployment was deemed satisfactory, the preperitoneal pocket was closed with continuous V-Lock 2-0 absorbable suture. The left-sided hernia was then repaired by making a preperitoneal pocket in the same technique as the right side. After the dissection was completed and the hernia sac was completely educed, the reconstruction was also done by deploying a 10 x 15-cm ProGrip mesh. The preperitoneal pocket was closed with a continuous V-Lock 2-0 absorbable suture as well. The robotic arms were then undocked and the pneumoperitoneum was evacuated and ports were removed. Patient was placed in supine position. A 3-cm vertical incision over the umbilicus was made using scalpel blade No. 15, and dissection was carried down to the subcutaneous tissue. The hernia sac was dissected away from the subcutaneous layer towards its neck. The hernia sac was then closed with 1 [id number] Vicryl 3-0 suture. The subcutaneous layer was undermined around the 3 cm umbilical defect. The fascial defect was closed transversely using a continuous Prolene 0 suture. After the repair was done, the skin was closed with subcuticular Monocryl 4-0 suture in continuous fashion. The port sites were also closed with subcuticular Biosyn 4-0. The wound closure was reinforced with Dermabond and umbilical wound was covered with pressure dressing. Patient was successfully extubated and transferred to the post anesthesia care unit in satisfactory condition. Estimated blood loss was about 5 mL. Wound class clean. The patient received 2 g of Ancef prior to the start of the procedure. Anthony [id number] MTDD
--- NOTE | 2018-12-24 09:52 | SURG ---
Surgery Acid Recovery Operator Note Acid Recovery Operator: Nahum Leavitt PA-C Date of Service: 12/23/18 Diagnosis: Bilateral inguinal hernia and umbilical hernia Procedure: robotic bilateral inguinal hernia repair with mesh and open umbilical hernia suture repair I was present for the entirety of the operative procedure. For further detail, please refer to operative report. Visit type - Case Type Case Type: Scheduled
[2018-12-24] MEDS ORDERED: LOSARTAN POTASSIUM 50 MG TABLET (FP) PO SCH (10:00)
[2018-12-24] MEDS ORDERED: RANITIDINE HCL 150 MG TABLET (FP) PO SCH (10:00)
[2018-12-24] MEDS ORDERED: BISACODYL 10 MG SUPP.RECT RC STA (16:31)
[2018-12-24] MEDS: KETOROLAC TROMETHAMINE 30 MG/1 ML VIAL IM PRN (17:04)
[2018-12-24 18:51] VITALS: BP 138/84; PULSE 77; TEMP 98.7
== END 2018-12-24 21:08 | disposition home or self-care (01) ==
LOC: JASUSAT 15:46 → J6S 17:32 → JASUSAT 12-24 21:08
PROVIDERS: ATTEND Surgery
PROC: 0WQF0ZZ Repair Abdominal Wall, Open Approach (ICD-10-PCS; 2018-12-23)
PROC: 0YUA4JZ Supplement Bilateral Inguinal Region with Synthetic Substitute, Percutaneous Endoscopic Approach (ICD-10-PCS; principal; 2018-12-23 11:00)
PROC: 8E0W4CZ Robotic Assisted Procedure of Trunk Region, Percutaneous Endoscopic Approach (ICD-10-PCS; 2018-12-23 11:00)
DX: K40.20 Bilateral inguinal hernia, without obstruction or gangrene, not specified as recurrent (principal); K42.9 Umbilical hernia without obstruction or gangrene; I10 Essential (primary) hypertension; E11.9 Type 2 diabetes mellitus without complications
CPT/HCPCS: 82962; 86850; 86900; 86901; 94760

== ENCOUNTER 2019-11-24 15:46 | Emergency (ER) | payer OTHER ==
[2019-11-24 16:09] VITALS: TEMP 98.1; BMI 24.4
[2019-11-24] MEDS ORDERED: traMADol HCL 50 MG TABLET PO ONE (16:30)
--- NOTE | 2019-11-24 16:36 | PDOC ---
Documentation entered by Ventura Garcia SCRIBE, acting as scribe for Khadijah Coppola MD. Khadijah Coppola MD: This documentation has been prepared by the Jose espinoza Xhesika, SCRIBE, under my direction and personally reviewed by me in its entirety. I confirm that the documentation accurately reflects all work, treatment, procedures, and medical decision making performed by me. History of Present Illness - General Chief Complaint: Pain Stated Complaint: R rib pain when breathes or moves History Source: Patient Exam Limitations: No Limitations - History of Present Illness Initial Comments: 11/24/19 15:49 The patient is a 69y/o M with a PMH of HTN, HLD, IDDM, legal blindness, glaucoma, and right hip OA s/p right AHMET total hip arthroplasty 02/24/18 and m [facility] admissions for syncope/pre-syncope presents to the ED with "R rib pain" x2days, worsening today. Pt states his symptoms are worse with movements and deep inspirations. Pt states he had a heavy cough yesterday, but not today. Pt denies any falls/ trauma or heavy lifting. The patient denies chest pain, shortness of breath, headache and dizziness. Denies fever, chills, nausea, vomiting, diarrhea and constipation. Denies any URI symptoms. Allergies: NKDA PCP: Dr. Metcalf Past History - Medical History Allergies/Adverse Reactions: Allergies Allergy/AdvReac Type Severity Reaction Status Date / Time No Known Drug Allergies Allergy Verified 12/23/18 10:55 Home Medications: Ambulatory Orders Carvedilol 12.5 mg PO BID 12/02/14 Sitagliptin Phosphate [Januvia -] 25 mg PO DAILY@0700 08/30/18 Insulin Glargine,Hum.rec.anlog [Lantus (10mL VIAL) -] 12 units SQ AM #1 vial 09/01/18 Famotidine [Pepcid] 11/24/19 traMADol HCL [Ultram -] 50 mg PO Q8H PRN #10 tablet MDD 2 tabs 11/24/19 Anemia: No Asthma: No Cancer: No Cardiac Disorders: No CVA: No COPD: No CHF: No Dementia: No Diabetes: Yes GI Disorders: No Disorders: Yes (ENLARGED PROSTATE) HTN: Yes Hypercholesterolemia: Yes Liver Disease: No Seizures: No Thyroid Disease: No - Surgical History Abdominal Surgery: No Appendectomy: No Cardiac Surgery: No Cholecystectomy: No Lung Surgery: No Neurologic Surgery: No Orthopedic Surgery: Yes (right hip 2018) - Immunization History Td Vaccination: Yes Immunization Up to Date: Yes - Psycho-Social/Smoking History Smoking Status: No Smoking History: Never smoked Have you smoked in the past 12 months: No Number of Cigarettes Smoked Daily: 0 Review of Systems - Review of Systems Able to Perform ROS?: Yes Comments:: 11/24/19 15:50 GENERAL/CONSTITUTIONAL: No fever or chills. No weakness. HEAD, EYES, EARS, NOSE AND THROAT: No change in vision. No ear pain or discharge. No sore throat. CARDIOVASCULAR: No chest pain or shortness of breath. RESPIRATORY: + cough yesterday. No wheezing, or hemoptysis. GASTROINTESTINAL: No nausea, vomiting, diarrhea or constipation. GENITOURINARY: No dysuria, frequency, or change in urination. MUSCULOSKELETAL: +R rib pain. No joint or muscle swelling. No neck or back pain. SKIN: No rash NEUROLOGIC: No headache, vertigo, loss of consciousness, or change in strength/sensation. ENDOCRINE: No increased thirst. No abnormal weight change. HEMATOLOGIC/LYMPHATIC: No anemia, easy bleeding, or history of blood clots. ALLERGIC/IMMUNOLOGIC: No hives or skin allergy. *Physical Exam - Physical Exam GENERAL: Awake, alert, and fully oriented, in no acute distress HEAD: No signs of trauma EYES: B/L corneas clouded (history blindness). Conjunctiva clear ENT: Auricles normal inspection, hearing grossly normal, nares patent, oropharynx clear without exudates. Moist mucosa NECK: Normal ROM, supple, no lymphadenopathy, JVD, or masses LUNGS: Breath sounds equal, clear to auscultation bilaterally. No wheezes, and no crackles. +Tenderness to R lateral lower rib margin, with small overlying ecchymosis. HEART: Regular rate and rhythm, normal S1 and S2, no murmurs, rubs or gallops ABDOMEN: Soft, nontender, normoactive bowel sounds. No guarding, no rebound. No masses EXTREMITIES: Normal range of motion, no edema. No clubbing or cyanosis. No cords, erythema, or tenderness NEUROLOGICAL: Cranial nerves II through XII grossly intact. Normal speech, normal gait. Motor and sensation intact SKIN: Warm, dry, normal turgor, no rashes or lesions noted. Medical Decision Making - Medical Decision Making 11/24/19 19:00 Pt signed out to Dr. Rogers at shift change, awaiting radiology read on his rib series. Stable for DC home. Discharge - Discharge Information Problems reviewed: Yes Clinical Impression/Diagnosis: Rib pain on right side Contusion of rib on right side Qualifiers: Encounter type: initial encounter Qualified Code(s): S20.211A - Contusion of right front wall of thorax, initial encounter Condition: Stable Disposition: HOME - Additional Discharge Information Prescriptions: traMADol HCL [Ultram -] 50 mg PO Q8H PRN #10 tablet MDD 2 tabs PRN Reason: Severe Pain - Follow up/Referral Referrals: ON STAFF,NOT [Primary Care Provider] - - Patient Discharge Instructions Patient Printed Discharge Instructions: DI for Rib Contusion Additional Instructions: Tramadol 50 mg up to twice a day as needed for severe pain Can alternate tramadol with acetaminophen 500 mg as needed Return if pain worsens or you have difficulty breathing/fever Contact your general doctor to discuss mary's ER visit and follow-up as arranged - Post Discharge Activity Work/Back to School Note: Parent(s) Back to Work Note
[2019-11-24] MEDS ORDERED: traMADol HCL 50 MG TABLET ONE (16:49)
[2019-11-24] MEDS ORDERED: CARVEDILOL 12.5 MG TABLET (FP) PO ONE (18:16)
--- NOTE | 2019-11-24 20:09 | PDOC ---
*Physical Exam - Vital Signs Last Vital Signs Temp Pulse Resp BP Pulse Ox 98.1 F 67 20 188/100 H 100 11/24/19 15:48 11/24/19 15:48 11/24/19 15:48 11/24/19 15:48 11/24/19 15:51 ED Treatment Course - Medications Given in the ED: ED Medications Discontinued Medications Generic Name Dose Route Start Last Admin Trade Name Freq PRN Reason Stop Dose Admin Carvedilol 12.5 mg 11/24/19 18:16 11/24/19 19:17 Coreg - PO 11/24/19 18:17 12.5 mg ONCE ONE Administration Tramadol HCl 50 mg 11/24/19 16:30 11/24/19 16:53 Ultram - PO 11/24/19 16:31 50 mg ONCE ONE Administration ED Progress Note - Progress Note Progress Note: Care of this patient signed out by Dr. Coppola Right rib series x-ray reviewed with Dr. Man of the radiology staff: No evidence of fracture or dislocation Results discussed with the patient and his son Patient will be discharged with follow-up with his general doctor in the next few days. Patient states that he got some relief from the tramadol that was administered while he was waiting for full work-up. Prescription for small (#10) prescription for tramadol 50 to be taken up to twice a day as needed for severe pain sent to his pharmacy Discharge - Discharge Information Problems reviewed: Yes Clinical Impression/Diagnosis: Rib pain on right side Contusion of rib on right side Qualifiers: Encounter type: initial encounter Qualified Code(s): S20.211A - Contusion of right front wall of thorax, initial encounter Condition: Stable Disposition: HOME - Additional Discharge Information Prescriptions: traMADol HCL [Ultram -] 50 mg PO Q8H PRN #10 tablet MDD 2 tabs PRN Reason: Severe Pain - Follow up/Referral Referrals: ON STAFF,NOT [Primary Care Provider] - - Patient Discharge Instructions Patient Printed Discharge Instructions: DI for Rib Contusion Additional Instructions: Tramadol 50 mg up to twice a day as needed for severe pain Can alternate tramadol with acetaminophen 500 mg as needed Return if pain worsens or you have difficulty breathing/fever Contact your general doctor to discuss tonight's ER visit and follow-up as arranged - Post Discharge Activity Work/Back to School Note: Parent(s) Back to Work Note
[2019-11-24 20:27] VITALS: BP 182/95; PULSE 95
== END 2019-11-24 20:27 | disposition home or self-care (01) ==
LOC: FER 15:46 → SUPCPDRO 15:46 → FER 20:27
DX: S20.211A Contusion of right front wall of thorax, initial encounter (principal); Y99.9 Unspecified external cause status
CPT/HCPCS: 71101-TC-RT-FY; 99283-25; U0003

== ENCOUNTER 2022-06-15 04:05 | Day surgery (SDC) | payer OTHER ==
[2022-06-10 10:50] VITALS: BMI 24.4
[2022-06-15 09:17] VITALS: RESP 18
[2022-06-15 12:02] VITALS: BP 153/70; PULSE 63; TEMP 97.5
== END 2022-06-15 12:15 | disposition home or self-care (01) ==
LOC: JASU-SURG 04:05
PROVIDERS: ATTEND Urology
PROC: 0TF4XZZ Fragmentation in Left Kidney Pelvis, External Approach (ICD-10-PCS; principal; 2022-06-15 08:30)
DX: N20.0 Calculus of kidney (principal)
CPT/HCPCS: 82962